=== PATIENT | male | born 2005 | race Two or more races ===

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

== ENCOUNTER 2024-06-13 18:32 | Inpatient (IN) | payer OTHER, SELFPAY ==
--- OUTSIDE RECORDS SUMMARY | 2024-06-13 18:37 | XMS_ITS | Continuity of Care Document ---
Author Organization [facility] Address [address] [place] [address]- Care Team Providers Care Bender Machine Name Role Phone Kathie Ernst DO Primary Care Physician [phone] Encounter [facility] Date(s): 04/25/21 - 05/25/21 [facility] [address] [place], [place] [address] Allergies, Adverse Reactions, Alerts No Known Medication Allergies Immunizations Given and Recorded Vaccine Date Status Refusal Reason influenza virus vaccine, inactivated 1 10/26/18 Gi chele influenza virus vaccine, inactivated 09/20/13 Give n Hepatitis A Pediatric Vaccine 05/06/17 Given Hepatitis A Pediatric Vaccine 06/27/15 Given Human Papillomavirus Vaccine 06/27/15 Given Human Papillomavirus Vaccine 03/20/14 Given Meningococcal Conjugate Vaccine 03/20/14 Given tetanus/diphtheria/pertussis, acel(Tdap) 03/20/14 Given Varicella Virus Vaccine 11/02/08 Given Varicella Virus Vaccine 03/20/04 Given influenza virus vaccine, live 11/02/08 Given influenza virus vaccine, live 11/01/07 Given Measles/Mumps/Rubella Virus Vaccine 11/01/07 Given Measles/Mumps/Rubella Virus Vaccine 06/19/04 Given Poliovirus Vaccine, Inactivated 11/01/07 Given Poliovirus Vaccine, Inactivated 09/19/04 Given Poliovirus Vaccine, Inactivated 03 Given Poliovirus Vaccine, Inactivated 03 Given diphtheria/tetanus/pertussis, acel(DTaP) 11/01/07 Given diphtheria/tetanus/pertussis, acel(DTaP) 09/19/04 Given diphtheria/tetanus/pertussis, acel(DTaP) 03 Given diphtheria/tetanus/pertussis, acel(DTaP) 03 Given diphtheria/tetanus/pertussis, acel(DTaP) 03 Given Haemophilus B Conj Vaccine (oldterm) 06/19/04 Give n Haemophilus B Conj Vaccine (oldterm) 03 Give n Haemophilus B Conj Vaccine (oldterm) 03 Give n Haemophilus B Conj Vaccine (oldterm) 03 Give n Hepatitis B Vaccine (old term) 03 Given Hepatitis B Vaccine (old term) 03 Given Hepatitis B Vaccine (old term) 03 Given pneumococcal 7-valent vaccine 03 Given pneumococcal 7-valent vaccine 03 Given pneumococcal 7-valent vaccine 03 Given 1Result Comment: [facility] [id number] Medications FLUoxetine 40 mg oral capsule 1 capsule = 40 mg, By Mouth, Daily, # 30 capsule, 0 Refills, Maintenance, 04/25/21 13:26:00 EDT, Capsule, [id number], Partial fill upon patient request if the prescription is for a schedule II opioid drug., 170, cm, 04/06/21 21:12:00 EDT, Raymond... Start Date: 04/25/21 Status: Ordered hydrOXYzine pamoate 50 mg oral capsule = 50 mg, By Mouth, 3 times a day, PRN Anxiety, take for mild anxiety, # 90 capsule, 0 Refills, Maintenance, 04/07/21 9:07:00 EDT, Capsule, [id number], Partial fill upon patient request if theprescription is for a schedule II opioid drug., 170... Start Date: 04/07/21 Stop Date: 05/07/21 Status: Ordered LORazepam 1 mg oral tablet 1 tablet = 1 mg, By Mouth, 3 times a day, PRN Anxiety, take for severe anxiety, # 42 tablet, 1 Refills, Maintenance, 04/07/21 9:07:00 EDT, Tablet, [id number], Partial fill upon patient request if the prescription is for a schedule II opioid drJason. Start Date: 04/07/21 Status: Ordered melatonin 5 mg oral tablet 1 tablet = 5 mg, By Mouth, Daily at bedtime, # 30 tablet, 1 Refills, Maintenance, 04/07/21 9:06:00 EDT, Tablet, [id number], Partial fill upon patient request if the prescription is for a schedule II opioid drug., 170, cm, 04/06/21 21:12:00 EDT... Start Date: 04/07/21 Status: Ordered traZODone 50 mg oral tablet 50 mg, 1, tablet, By Mouth, Daily at bedtime, # 30 tablet, Refills 0, Tot. Refills 0, Maintenance, 04/25/21 13:27:00 EDT, Route to Pharmacy Electronically, [facility] #[id number], Partial fill upon patient request if the prescription is for a schedule II... Start Date: 04/25/21 Status: Ordered ZyPREXA 10 mg oral tablet See Instructions, 1 tablet daily in AM; 1.5 tabs daily at bedtime, # 75 tablet, Refills 0, Tot. Refills 0, Maintenance, 04/25/21 13:26:00 EDT, Instructions Replace Required Details, Route to PharmacyElectronically, [facility] #[id number], Partial fill up... Start Date: 04/25/21 Status: Ordered Problem List Condition Effective Dates Status Health Status Inform ant Autism(Confirmed) Active Social History Social History Type Response Smoking Status Never smoker; Tobacc o user in household: No entered on: 08/10/18 Sex
--- OUTSIDE RECORDS SUMMARY | 2024-06-13 18:37 | XMS_ITS | Continuity of Care Document ---
Author Organization [facility] Address [address] [place] [address]- Care Team Providers Care Off Premise Service Representative Name Role Phone Kathie Ernst DO Primary Care Physician Encounter [facility] Date(s): 11/12/20 - 12/12/20 [facility] [address] [place], [place] [address] Allergies, Adverse Reactions, Alerts No [...] pneumococcal 7-valent vaccine 03 Given 1Result Comment: [facility] [id number] Medications melatonin 5 mg oral tablet 1 tablet = 5 mg, By Mouth, Daily at bedtime, # 30 tablet, 0 Refills, Maintenance, 10/16/20 18:04:00EST, Tablet, [facility]/pharmacy #[id number], Partial fill upon patient request, 172.5, cm, 10/16/20 16:28:00 EST, Height, 60.1, kg, 10/16/20 16:28:00 EST, Dry Weight Start Date: 10/16/20 Stop Date: 11/15/20 Status: Ordered olanzapine 5 mg oral tablet 10 mg, 2, tablet, By Mouth, Every 24 hours, Refills 0, Maintenance, 10/16/20 16:43:00 EST, Partial fill upon patient request Start Date: 10/16/20 Status: Ordered olanzapine 5 mg oral tablet 5 mg, 1, tablet, By Mouth, 2 times a day, take one pill in the morning and 2 pills at night (5mg @ 10AM and 10mg @ 9PM), # 90 tablet, Refills 0, Tot. Refills 0, Maintenance, 10/16/20 18:04:00 EST, Route to Pharmacy Electronically, [facility]/pharmacy #[id number],... Start Date: 10/16/20 Stop Date: 11/15/20 Status: Ordered traZODone 50 mg oral tablet 50 mg, 1, tablet, By Mouth, Daily at bedtime, PRN, # 30 tablet, Refills 0, Tot. Refills 0, Maintenance, Insomnia, 10/16/20 18:05:00 EST, Route to Pharmacy Electronically, [facility]/pharmacy #[id number], Partial fill upon patient request, 172.5, cm, 10/16/20 16:28... Start Date: 10/16/20 Stop Date: 11/15/20 Status: Ordered ZyPREXA 7.5 mg oral tablet 7.5 mg, 1, tablet, By Mouth, 4 times a day, PRN, Only when anxious, # 30 tablet, Refills 0, Tot. Refills 0, Maintenance, Anxiety, 10/16/20 18:04:00 EST, Route to Pharmacy Electronically, [facility]/pharmacy#[id number], Partial fill upon patient request, 172.5, cm... Start Date: 10/16/20 Stop Date: 11/15/20 Status: Ordered Problem List Condition Effective Dates Status Health Status Inform ant Autism(Confirmed) Active Social History Social History Type Response Smoking Status Never smoker; Tobacc o user in household: No entered on: 08/10/18 Sex
--- OUTSIDE RECORDS SUMMARY | 2024-06-13 18:37 | XMS_ITS | Continuity of Care Document ---
Author Organization [facility] Address [address] [place] [address]- Care Team Providers Care Fire Prevention Chief Name Role Phone Kathie Ernst DO Primary Care Physician Encounter [facility] [place] Date(s): 01/24/21 - 02/23/21 [facility] [address] [place] [address]- Attending Physician: Luis Crawley Admitting Physician: Luis Crawley Referring Physician: AdmtrLuis Allergies, Adverse Reactions, Alerts No Known Medication [...] pneumococcal 7-valent vaccine 03 Given 1Result Comment: [facility] [id number] Medications melatonin 5 mg oral tablet 1 tablet = 5 mg, By Mouth, Daily at bedtime, # 30 tablet, 0 Refills, Maintenance, 10/16/20 18:04:00EST, Tablet, [facility]/pharmacy #[id number], Partial fill upon patient request, 172.5, [...] 10/16/20 18:04:00 EST, Route to Pharmacy Electronically, [facility]/pharmacy #[id number],... Start Date: 10/16/20 Stop Date: 11/15/20 Status: Ordered traZODone 50 mg oral tablet 50 mg, 1, tablet, By Mouth, Daily at bedtime, PRN, # 30 tablet, Refills 0, Tot. Refills 0, Maintenance, Insomnia, 10/16/20 18:05:00 EST, Route to Pharmacy Electronically, [facility]/pharmacy #[id number], Partial fill upon patient request, 172.5, cm, 10/16/20 16:28... Start Date: 10/16/20 Stop Date: 11/15/20 Status: Ordered ZyPREXA 7.5 mg oral tablet 7.5 mg, 1, tablet, By Mouth, 4 times a day, PRN, Only when anxious, # 30 tablet, Refills 0, Tot. Refills 0, Maintenance, Anxiety, 10/16/20 18:04:00 EST, [id number] fill upon patient request, 172.5, cm... Start Date: 10/16/20 Stop Date: 11/15/20 Status: Ordered Problem List Condition Effective Dates Status Health Status Inform ant Autism(Confirmed) Active Social History Social History Type Response Smoking Status Never smoker; Tobacc o user in household: No entered on: 08/10/18 Sex
--- OUTSIDE RECORDS SUMMARY | 2024-06-13 18:38 | XMS_ITS | Continuity of Care Document ---
Author Organization [facility] Address [address] [place] [address]- Care Team Providers Care Office Machine Installer Name Role Phone Not on Staff, PCP Primary Care Physician Unavail able Encounter [facility] Date(s): 05/11/23 - 05/11/[address] [address]- Discharge Disposition: A-D/C Walkout Attending Physician: Not on Staff, Attending MD Admitting Physician: Not on Staff, Admitting MD Referring Physician: Not on Staff, Referring MD Allergies, Adverse Reactions, Alerts No Known Medication Allergies Immunizations Given and Recorded Vaccine Date Status Refusal Reason tetanus/diphtheria/pertussis, acel(Tdap) 05/09/23 Given tetanus/diphtheria/pertussis, acel(Tdap) 03/20/14 Given influenza virus vaccine, inactivated 1 10/26/18 Gi chele influenza virus vaccine, inactivated 09/20/13 Give n Hepatitis A Pediatric Vaccine 05/06/17 Given Hepatitis A Pediatric Vaccine 06/27/15 Given Human Papillomavirus Vaccine 06/27/15 Given Human Papillomavirus Vaccine 03/20/14 Given Meningococcal Conjugate Vaccine 03/20/14 Given Varicella Virus Vaccine 11/02/08 Given [...] 03 Given pneumococcal 7-valent vaccine 03 Given Not Given Vaccine Date Status Refusal Reason influenza virus vaccine, inactivated 12/04/22 Not Given Patient Refuses 1Result Comment: [facility] [id number] Medications olanzapine 20 mg oral tablet 1 tablet = 20 mg, By Mouth, Daily, # 30 tablet, 0 Refills, Maintenance, 12/10/22 9:01:00 EST, Tablet, [id number], Partial fill upon patient request if the prescription is for a schedule II opioid drug., 175, cm, 12/08/22 18:10:00 EST,... Start Date: 12/10/22 Status: Ordered Problem List Condition Confirmation Course Effective Dates Status H ealth Status Informant Anxiety Confirmed Active ADHD Confirmed Active Autism Confirmed Active Depression Confirmed Active Major depression with psychotic features Confirmed Active Schizophrenia Confirmed Active Vital Signs Most recent to oldest [Reference Range]: 1 Height 175 cm (05/11/23 1:48 PM) Weight 91.4 kg (05/11/23 1:48 PM) Oxygen Saturation [94-100 %] 98 % (05/11/23 1:48 PM) Pulse Rate [55-90 bpm] 65 bpm (05/11/23 1:48 PM) Body Mass Index [18.5-24.99 kg/m2] 29.84 kg/m2 *H* (05/11/23 1:48 PM) Blood Pressure [90-138/55-84 mm Hg] 112/ 78mm Hg (05/11/23 1:48 PM) Respiratory Rate [16-30 br/min] 18 br/mi n (05/11/23 1:48 PM) Temperature [96.8-100.4 DegF] 98.2 DegF (05/11/23 1:48 PM) Mode of Delivery (Oxygen) Room air (05/11/23 1:48 PM) Blood pressure sites Arm, left (05/11/23 1:48 PM) Temperature Route Oral (05/11/23 1:48 PM) Weight Obtained Via Standing scale (05/11/23 1:48 PM) Social History Social History Type Response Smoking Status Never smoker; Tobacc o user in household: No entered on: 08/10/18 Sex Patient Care team information Care Team Personnel Name: Jsoe Rafael Rodriges RN Position: [facility] RN Member Role: Primary Care Nurse Name: Latha Winston RN Position: [facility] RN Member Role: Primary Care Nurse Name: Cammy Villarreal RN Position: S RN Member Role: Primary Care Nurse Name: Cleopatra Lyles RN Position: [facility] RN Supv Member Role: Primary Care Nurse Name: Vannessa Fam RN Position: [facility] RN Member Role: Primary Care Nurse Name: Mague Hendrix RN Position: [facility] ED RN W/OE and Tasks Member Role: Primary Care Nurse Name: Not on Staff, PCP Position: [facility] Physician (General Medicine) Member Role: PCP Name: Leia Hunter RN Position: S RN Member Role: Primary Care Nurse Name: Jame Allen RN Position: [facility] RN Member Role: Primary Care Nurse Name: Kenzie Leary RN Position: [facility] RN Supv Member Role: Primary Care Nurse Name: Irais Velez RN Position: [facility] RN Member Role: Primary Care Nurse Care Team Related Persons Name: NATHANAEL AURA Address: home [address] [place] [address] Name: VANDANA HANKS Address: home [address] [place] [address]
--- OUTSIDE RECORDS SUMMARY | 2024-06-13 18:38 | XMS_ITS | Continuity of Care Document ---
Author Organization [facility] Address [address] [place] [address]- Care Team Providers Care Automotive Service Management Teacher Name Role Phone Nagi Bhatti DO Primary Care Physician [phone] Encounter [facility] Date(s): 01/07/24 - 02/20/24 [facility] [address] [place], [place] [phone] Attending Physician: Not on Staff, Attending MD Allergies, Adverse Reactions, Alerts No Known [...] pneumococcal 7-valent vaccine 03 Given 1Result Comment: [facility] 14291-779-63 Medications hydrOXYzine pamoate 50 mg oral capsule 1 capsule = 50 mg, By Mouth, 4 times a day, PRN for anxiety, # 40 capsule, 0 Refills, Maintenance, 11/23/23 0:08:00 EST, Capsule, Partial fill upon patient request if the prescription is for a schedule II opioid drug. Start Date: 11/23/23 Status: Ordered Melatonin 3 mg oral tablet 1 tablet = 3 mg, By Mouth, Daily at bedtime, PRN for insomnia, # 60 tablet, 0 Refills, Maintenance,11/23/23 0:08:00 EST, Tablet, Partial fill upon patient request if the prescription is for a schedule II opioid drug. Start Date: 11/23/23 Status: Ordered mirtazapine 15 mg oral tablet TAKE 1/2 TABLET BY MOUTH AT BEDTIME Start Date: 02/04/24 Status: Ordered naproxen 500 mg oral tablet 1 tablet = 500 mg, By Mouth, 2 times a day, PRN for pain, # 20 tablet, 0 Refills, Maintenance, 11/23/23 0:08:00 EST, Tablet, Partial fill upon patient request if the prescription is for a schedule IIopioid drug. Start Date: 11/23/23 Status: Ordered olanzapine 15 mg oral tablet TAKE 1 TABLET BY MOUTH EVERY NIGHT AT BEDTIME Start Date: 02/04/24 Status: Ordered traZODone 50 mg oral tablet 50 mg, 1, tablet, By Mouth, Daily at bedtime, PRN, # 14 tablet, Refills 1, Tot. Refills 1, Maintenance, Insomnia, 05/23/23 14:47:00 EDT, Route to Pharmacy Electronically, [facility], Partial fill upon patient request if the prescription... Start Date: 05/23/23 Stop Date: 06/20/23 Status: Ordered Problem List Condition Confirmation Course Effective Dates Status H ealth Status Informant Anxiety Confirmed Active ADHD Confirmed Active Autism Confirmed Active Depression 1 Confirmed Active Major depression with psychotic features Confirmed Active Schizophrenia Confirmed Active 1As per psych H&P on 12/03/22 - past diagnoses: ASD, ADHD, anxiety, MDD w/ psychotic features, unspecified psychotic disorder vs OCD Past Treatment Trials: Prozac, sertraline, risperidone, Zyprexa, Abilify Aristada, Invega Sustenna,Wellbutrin Past Hospitalizations in 2020 - 2021 [facility] APTU 07/23/22-08/07/22, 11/03/21- 11/07/21, 10/13/21-10/20/21; prior to that, MiraVista 10/07/21, APTU 03/2021 and 02/2021, Social History Social History Type Response Smoking Status Never smoker; Tobacc o user in household: No entered on: 08/10/18 Sex Male Patient Care team information Care Team Personnel Name: Jose Rafael Rodriges RN Position: S RN Member Role: Primary Care Nurse Name: Nagi Bhatti DO Position: S Resident Member Role: PCP Address: Address: [address] [place] [address] [place] [address]- Name: Cammy Villarreal RN Position: S RN Member Role: Primary Care Nurse Name: Cleopatra Lyles RN Position: S RN Member Role: Primary Care Nurse Name: Vannessa Fam RN Position: S RN Member Role: Primary Care Nurse Name: Leia Hunter RN Position: S RN Member Role: Primary Care Nurse Name: Jame Allen RN Position: S RN Member Role: Primary Care Nurse Name: Kenzie Leary RN Position: S RN Member Role: Primary Care Nurse Name: Jf Ayala RN Position: S RN Member Role: Primary Care Nurse Name: Irais Velez RN Position: S RN Member Role: Primary Care Nurse Care Team Related Persons Name: AURA HUFFMAN Address: [place] [address] Name: VANDANA HANKS Address: [place] [address] Name: STATES, NO ONE
--- OUTSIDE RECORDS SUMMARY | 2024-06-13 18:38 | XMS_ITS | Continuity of Care Document ---
Author Organization [facility] Address [address] [place] [address]- Care Team Providers Care Manager Customer Name Role Phone Kathie Ernst DO Primary Care Physician Encounter [facility] Date(s): 06/13/21 - 07/13/21 [facility] [address] [place], [place] [address] Allergies, Adverse Reactions, Alerts No Known Medication [...] 7-valent vaccine 03 Given 1Result Comment: [facility] 81925-526-90 Medications FLUoxetine 40 mg oral capsule 1 [...] 04/25/21 13:27:00 EDT, Route to Pharmacy Electronically, [facility]/pharmacy #[id number], Partial fill upon patient request if the prescription is for a schedule II... Start Date: 04/25/21 Status: Ordered ZyPREXA 10 mg oral tablet See Instructions, 1 tablet daily in AM; 1.5 tabs daily at bedtime, # 75 tablet, Refills 0, Tot. Refills 0, Maintenance, 04/25/21 13:26:00 EDT, Instructions Replace Required Details, Route to PharmacyElectronically, [facility]/pharmacy #[id number], Partial fill up... Start Date: 04/25/21 Status: Ordered Problem List Condition Effective Dates Status Health Status Inform ant Autism(Confirmed) Active Social History Social History Type Response Smoking Status Never smoker; Tobacc o user in household: No entered on: 08/10/18 Sex
--- OUTSIDE RECORDS SUMMARY | 2024-06-13 18:38 | XMS_ITS | Continuity of Care Document ---
Author Organization [facility] Address [address] [place] [address]- Care Team Providers Care Employment Advisor Name Role Phone Kathie Ernst DO Primary Care Physician Encounter [facility] Date(s): 03/24/21 - 04/23/21 [facility] [address] [place], [place] [address] Allergies, Adverse Reactions, Alerts No [...] pneumococcal 7-valent vaccine 03 Given 1Result Comment: [facility] 97629-372-25 Medications FLUoxetine 40 mg oral capsule 1 capsule = 40 mg, By Mouth, Daily, # 30 capsule, 0 Refills, Maintenance, 04/07/21 9:07:00 EDT, Capsule, [id number], Partial fill upon patient request if the prescription is for a schedule IIopioid drug., 170, cm, 04/06/21 21:12:00 EDT, Moises... Start Date: 04/07/21 Status: Ordered hydrOXYzine pamoate 50 mg oral [...] tablet, Refills 0, Tot. Refills 0, Maintenance, 04/07/21 9:06:00 EDT, Route to Pharmacy Electronically, [facility]/pharmacy #[id number], Partial fill upon patient request if the prescription is for a schedule II o... Start Date: 04/07/21 Status: Ordered ZyPREXA 10 mg oral tablet See Instructions, 1 tablet daily in AM; 1.5 tabs daily at bedtime, # 75 tablet, Refills 0, Tot. Refills 0, Maintenance, 04/07/21 9:06:00 EDT, Instructions Replace Required Details, Route to Pharmacy Electronically, [facility]/pharmacy #[id number], Partial fill upo... Start Date: 04/07/21 Status: Ordered Problem List Condition Effective Dates Status Health Status Inform ant Autism(Confirmed) Active Social History Social History Type Response Smoking Status Never smoker; Tobacc o user in household: No entered on: 08/10/18 Sex
--- OUTSIDE RECORDS SUMMARY | 2024-06-13 18:38 | XMS_ITS | Continuity of Care Document ---
Author Organization [facility] Address [address] [place] [address]- Care Team Providers Care Secondary School Registrar Name Role Phone Branch Maday ROBINS Primary Care Physician [facility]counter [facility] Date(s): 03/11/22 - 04/25/22 [facility] [address] [place] [id number] Attending Physician: Randall Lagunas MD Admitting Physician: Randall Lagunas MD Allergies, Adverse Reactions, Alerts No Known [...] 7-valent vaccine 03 Given 1Result Comment: [facility] 58130-646-45 Medications FLUoxetine 40 mg oral capsule 1 capsule = 40 mg, By Mouth, Daily, # 30 capsule, 0 Refills, Maintenance, 11/07/21 10:38:00 EST, Capsule, [id number], Partial fill upon patient request if the prescription is for a schedule II opioid drug., 175, cm, 11/07/21 8:02:00 EST, Heigh... Start Date: 11/07/21 Status: Ordered melatonin 5 mg oral tablet 1 tablet = 5 mg, By Mouth, Daily at bedtime, # 30 tablet, 1 Refills, Maintenance, 11/07/21 10:38:00EST, Tablet, [id number], Partial fill upon patient request if the prescription is for a schedule II opioid drug., 175, cm, 11/07/21 8:02:00 EST... Start Date: 11/07/21 Status: Ordered olanzapine 10 mg oral tablet 10 mg, 1, tablet, By Mouth, Daily, # 30 tablet, Refills 0, Tot. Refills 0, Maintenance, 11/07/21 10:39:00 EST, Route to Pharmacy Electronically, [facility]/pharmacy #[id number], Partial fill upon patient request if the prescription is for a schedule II opioid drug... Start Date: 11/07/21 Status: Ordered olanzapine 10 mg oral tablet 10 mg, 1, tablet, By Mouth, Daily, Refills 0, Maintenance, 11/06/21 16:24:00 EST, Partial fill uponpatient request if the prescription is for a schedule II opioid drug. Start Date: 11/06/21 Status: Ordered traZODone 50 mg oral tablet 50 mg, 1, tablet, By Mouth, Daily at bedtime, # 30 tablet, Refills 0, Tot. Refills 0, Maintenance, 11/07/21 10:39:00 EST, Route to Pharmacy Electronically, [facility]/pharmacy #[id number], Partial fill upon patient request if the prescription is for a schedule II... Start Date: 11/07/21 Status: Ordered Problem List Condition Effective Dates Status Health Status Inform ant Autism(Confirmed) Active Depression(Confirmed) Active Violent behavior(Confirmed) Active Schizophrenia(Confirmed) Active Social History Social History Type Response Smoking Status Never smoker; Tobacc o user in household: No entered on: 08/10/18 Sex
--- OUTSIDE RECORDS SUMMARY | 2024-06-13 18:38 | XMS_ITS | Continuity of Care Document ---
Author Organization [facility] Address [address] [place] [address]- Care Team Providers Care Supervisor Car Installations Name Role Phone Nagi Bhatti DO Primary Care Physician [place] [facility] Date(s): 11/26/23 - 12/26/23 [facility] [address] [place], [place] [address] Attending Physician: Luis Crawley Admitting Physician: Luis [...] pneumococcal 7-valent vaccine 03 Given 1Result Comment: [facility] 61306-850-80 Medications hydrOXYzine pamoate 50 mg oral capsule 1 capsule = 50 mg, By Mouth, 4 times a day, PRN for anxiety, # 40 capsule, 0 Refills, Maintenance, 11/23/23 0:08:00 EST, Capsule, Partial fill upon patient request if the prescription is for a schedule II opioid drug. Start Date: 11/23/23 Status: Ordered MELATONIN 3 MG TABS MELATONIN 3 MG TABS, 0 Refills, Maintenance, 11/23/23 0:08:00 EST Start Date: 11/23/23 Status: Ordered Melatonin 3 mg oral tablet 1 tablet = 3 mg, By Mouth, Daily at bedtime, PRN for insomnia, # 60 tablet, 0 Refills, Maintenance,11/23/23 0:08:00 EST, Tablet, Partial fill upon patient request if the prescription is for a schedule II opioid drug. Start Date: 11/23/23 Status: Ordered mirtazapine 7.5 mg oral tablet 1 tablet = 7.5 mg, By Mouth, Daily at bedtime, # 30 tablet, 0 Refills, Maintenance, 11/23/23 0:08:00 EST, Partial fill upon patient request if the prescription is for a schedule II opioid drug. Start Date: 11/23/23 Status: Ordered naproxen 500 mg oral tablet 1 tablet = 500 mg, By Mouth, 2 times a day, PRN for pain, # 20 tablet, 0 Refills, Maintenance, 11/23/23 0:08:00 EST, Tablet, Partial fill upon patient request if the prescription is for a schedule IIopioid drug. Start Date: 11/23/23 Status: Ordered olanzapine 10 mg oral tablet 10 mg, 1, tablet, By Mouth, Daily, # 30 tablet, Refills 0, Maintenance, 11/23/23 0:08:00 EST, Partial fill upon patient request if the prescription is for a schedule II opioid drug. Start Date: 11/23/23 Status: Ordered olanzapine 5 mg oral tablet 5 mg, 1, tablet, By Mouth, 2 times a day, # 28 tablet, Refills 1, Tot. Refills 1, Maintenance, 05/23/23 14:47:00 EDT, Route to Pharmacy Electronically, [facility], Partial fill upon patient request if the prescription is for a schedule I... Start Date: 05/23/23 Stop Date: 06/20/23 Status: Ordered traZODone 50 mg oral tablet 50 mg, 1, tablet, By Mouth, Daily at bedtime, PRN, # 14 tablet, Refills 1, Tot. Refills 1, Maintenance, Insomnia, 05/23/23 14:47:00 EDT, Route to Pharmacy Electronically, [facility], Partial fill upon patient [...] Sustenna,Wellbutrin Past Hospitalizations in 2020 - 2021 [facility] APTU 07/23/22-08/07/22, 11/03/21- 11/07/21, 10/13/21-10/20/21; prior to that, MiraVista 10/07/21, APTU 03/2021 and 02/2021, Social History Social History Type Response Smoking Status Never smoker; Tobacc o user in household: No entered on: 08/10/18 Sex Male Patient Care team information Care Team Personnel Name: Jose Rafael Rodriges RN Position: S RN Member Role: Primary Care Nurse Name: Latha Winston RN Position: S RN Member Role: Primary Care Nurse Name: Nagi Bhatti DO Position: [facility] Resident Member Role: PCP Address: Address: [address] [place] [id number] Name: Cammy Villarreal RN Position: S RN Member Role: Primary Care Nurse Name: Cleopatra Lyles RN Position: S RN Member Role: Primary Care Nurse Name: Vannessa Fam RN Position: S RN Member Role: Primary Care Nurse Name: Leia Hunter RN Position: [facility] RN Member Role: Primary Care Nurse Name: Jame Allen RN Position: [facility] RN Member Role: Primary Care Nurse Name: Kenzie Leary RN Position: S RN Member Role: Primary Care Nurse Name: Jf Ayala RN Position: [facility] RN Member Role: Primary Care Nurse Name: Irais Velez RN Position: S RN Member Role: Primary Care Nurse Care Team Related Persons Name: AURA HUFFMAN Address: [address] [place] [id number] Name: VANDANA HANKS Address: home [address] [place] [id number]
--- OUTSIDE RECORDS SUMMARY | 2024-06-13 18:38 | XMS_ITS | Continuity of Care Document ---
Author Organization [facility] Address [address] [place] [address]- Care Team Providers Care Technology Director Name Role Phone Not on Staff, PCP Primary Care Physician Unavail able Encounter [facility] Date(s): 10/10/21 - 11/23/21 [facility] [address] [place] [id number] Attending Physician: Not on Staff, Attending MD [...] 7-valent vaccine 03 Given 1Result Comment: [facility] 80828-464-98 Medications FLUoxetine 40 mg oral capsule 1 [...] 11/07/21 10:39:00 EST, [id number], Partial fill upon patient request [...] 11/07/21 10:39:00 EST, Route to Pharmacy Electronically, [facility]/pharmacy #[id number], Partial fill upon patient request if the prescription is for a schedule II... Start Date: 11/07/21 Status: Ordered Problem List Condition Effective Dates Status Health Status Inform ant Autism(Confirmed) Active Social History Social History Type Response Smoking Status Never smoker; Tobacc o user in household: No entered on: 08/10/18 Sex
--- OUTSIDE RECORDS SUMMARY | 2024-06-13 18:38 | XMS_ITS | Continuity of Care Document ---
Author Organization [facility] Address [address] [place] [address]- Care Team Providers Care Snack Bar Attendant Name Role Phone Branch Maday ROBINS Primary Care Physician Encounter [facility] Date(s): 02/26/22 - 03/28/22 [facility] [address] [place] [id number] Allergies, Adverse Reactions, Alerts No [...] pneumococcal 7-valent vaccine 03 Given 1Result Comment: [facility] 64928-997-45 Medications FLUoxetine 40 mg oral capsule 1 [...] 11/07/21 10:39:00 EST, Route to Pharmacy Electronically, [facility]/pharmacy #[id number], Partial fill upon patient request if the [...]
--- OUTSIDE RECORDS SUMMARY | 2024-06-13 18:38 | XMS_ITS | Continuity of Care Document ---
Author Organization [facility] Address [address] [place] [address]- Care Team Providers Care Machine Engineer Name Role Phone Kathie Ernst DO Primary Care Physician Encounter [facility] Date(s): 08/06/21 - 09/05/21 [facility] [address] [place] [id number] Attending Physician: Luis Crawley Admitting Physician: AdmLuis cash Referring Physician: AdmtrLuis Allergies, Adverse Reactions, Alerts [...] pneumococcal 7-valent vaccine 03 Given 1Result Comment: [facility] 45865-905-97 Medications FLUoxetine 40 mg oral capsule 1 capsule = 40 mg, By Mouth, Daily, # 30 capsule, 0 Refills, Maintenance, 04/25/21 13:26:00 EDT, [facility]apsule, [id number], Partial fill upon patient request if the prescription is for a schedule II opioid drug., 170, cm, 04/06/21 21:12:00 EDT, Heig... Start Date: 04/25/21 Status: Ordered hydrOXYzine pamoate [...] prescription is for a schedule II opioid dr... Start Date: 04/07/21 Status: Ordered melatonin 5 mg oral tablet 1 tablet = 5 mg, By Mouth, Daily at bedtime, # 30 tablet, 1 Refills, Maintenance, 04/07/21 9:06:00 EDT, Tablet, [facility]/pharmacy #[id number], Partial fill upon patient request if the prescription is for a schedule II opioid drug., 170, cm, 04/06/21 21:12:00 EDT... Start Date: 04/07/21 Status: Ordered traZODone 50 mg oral tablet 50 mg, 1, tablet, By Mouth, Daily at bedtime, # 30 tablet, Refills 0, Tot. Refills 0, Maintenance, 04/25/21 13:27:00 EDT, Route to Pharmacy Electronically, [facility]/pharmacy #[id number], Partial fill upon patient request if the prescription is for a schedule II... Start Date: 04/25/21 Status: Ordered ZyPREXA 10 mg oral tablet See Instructions, 1 tablet daily in AM; 1.5 tabs daily at bedtime, # 75 tablet, Refills 0, Tot. Refills 0, Maintenance, 04/25/21 13:26:00 EDT, Instructions Replace Required Details, Route to PharmacyElectronically, [facility]/pharmacy #[id number], Partial fill up... Start Date: 04/25/21 Status: Ordered Problem List Condition Effective Dates Status Health Status Inform ant Autism(Confirmed) Active Social History Social History Type Response Smoking Status Never smoker; Tobacc o user in household: No entered on: 08/10/18 Sex
--- OUTSIDE RECORDS SUMMARY | 2024-06-13 18:38 | XMS_ITS | Continuity of Care Document ---
Author Organization [facility] Address [address] [place] [address]- Care Team Providers Care Tubular Products Fabricator Name Role Phone Nagi Bhatti DO Primary Care Physician Encounter [facility] Date(s): 11/26/23 - 12/26/23 [facility] [address] [place], [place] [address] Attending Physician: Leia Armas MD Admitting Physician: Leia Armas MD Allergies, Adverse Reactions, Alerts No Known [...] pneumococcal 7-valent vaccine 03 Given 1Result Comment: [facility] 69731-190-13 Medications hydrOXYzine pamoate 50 mg oral capsule [...] 05/23/23 14:47:00 EDT, Route to Pharmacy Electronically, [facility], Partial fill upon patient request if the prescription is for a schedule I... Start Date: 05/23/23 Stop Date: 06/20/23 Status: Ordered traZODone 50 mg oral tablet 50 mg, 1, tablet, By Mouth, Daily at bedtime, PRN, # 14 tablet, Refills 1, Tot. Refills 1, Maintenance, Insomnia, 05/23/23 14:47:00 EDT, Route to Pharmacy Electronically, [facility], Partial fill upon patient [...] Sustenna,Wellbutrin Past Hospitalizations in 2020 - 2021 [facility] APTU 07/23/22-08/07/22, 11/03/21- 11/07/21, 10/13/21-10/20/21; prior to that, MiraVista 10/07/21, APTU 03/2021 and 02/2021, Social History Social History Type Response Smoking Status Never smoker; Tobacc o user in household: No entered on: 08/10/18 Sex Male Patient Care team information Care Team Personnel Name: Jose Rafael Rodriges RN Position: S RN Member Role: Primary Care Nurse Name: Latha Winston RN Position: [facility] RN Member Role: Primary Care Nurse Name: Nagi Bhatti DO Position: [facility] Resident Member Role: PCP Address: Address: [address] [place] [id number]- Name: Cammy Villarreal RN Position: [facility] RN Member Role: Primary Care Nurse Name: Cleopatra Lyles RN Position: [facility] RN Member Role: Primary Care Nurse Name: Vannessa Fam RN Position: [facility] RN Member Role: Primary Care Nurse Name: Leia Hunter RN Position: [facility] RN Member Role: Primary Care Nurse Name: Jame Allen RN Position: [facility] RN Member Role: Primary Care Nurse Name: Kenzie Leary RN Position: [facility] RN Member Role: Primary Care Nurse Name: Jf Ayala RN Position: [facility] RN Member Role: Primary Care Nurse Name: Irais Velez RN Position: [facility] RN Member Role: Primary Care Nurse Care Team Related Persons Name: NATHANAEL AURA Address: home [address] [place] [id number] Name: VANDANA HANKS Address: home [address] [place] [id number]
--- OUTSIDE RECORDS SUMMARY | 2024-06-13 18:38 | XMS_ITS | Continuity of Care Document ---
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 face. 2. ??Mild left periorbital soft tissue swelling. 3. ??Old healed left-sided maxillofacial fractures as described above. [1] [1]??CT Head/Brain W/O Contrast; Swati Gant MD 05/05/2024 23:58 EDT Patient Care team information Care Team Personnel Name: Nagi Bhatti DO Position: [facility] Resident Member Role: PCP Address: Address: [address] [place] [address] Name: Cammy Villarreal RN Position: S RN [...] RN Member Role: Primary Care Nurse Name: Leo Ayala RN Position: S RN Member Role: Primary Care Nurse Name: Irais Velez RN Position: S RN Member Role: Primary Care Nurse Care Team Related Persons Name: SHARDA HUFFMAN Address: home [address] [place] [address] Name: VANDANA HANKS Address: home [address] [place] [address] Name: STATES, NO ONE
--- OUTSIDE RECORDS SUMMARY | 2024-06-13 18:38 | XMS_ITS | Continuity of Care Document ---
Author Organization [facility] Address [address] [place] [address]- Care Team Providers Care Bookmobile Librarian Name Role Phone Kathie Ernst DO Primary Care Physician [place] [facility] [place]21 [facility] [address] [place], [place] [address] Allergies, Adverse Reactions, Alerts No Known [...] pneumococcal 7-valent vaccine 03 Given 1Result Comment: [facility] 45893-275-79 Medications melatonin 5 mg oral tablet 1 tablet = 5 mg, By Mouth, Daily at bedtime, # 30 tablet, 0 Refills, Maintenance, 10/16/20 18:04:00EST, Tablet, [facility]/pharmacy #[id number], Partial fill upon patient request, 172.5, [...] 10/16/20 18:04:00 EST, Route to Pharmacy Electronically, [facility]/pharmacy #[id number],... Start Date: 10/16/20 Stop Date: 11/15/20 Status: Ordered traZODone 50 mg oral tablet 50 mg, 1, tablet, By Mouth, Daily at bedtime, PRN, # 30 tablet, Refills 0, Tot. Refills 0, Maintenance, Insomnia, 10/16/20 18:05:00 EST, Route to Pharmacy Electronically, [facility]/pharmacy #[id number], Partial fill upon patient request, 172.5, cm, 10/16/20 16:28... Start Date: 10/16/20 Stop Date: 11/15/20 Status: Ordered ZyPREXA 7.5 mg oral tablet 7.5 mg, 1, tablet, By Mouth, 4 times a day, PRN, Only when anxious, # 30 tablet, Refills 0, Tot. Refills 0, Maintenance, Anxiety, 10/16/20 18:04:00 EST, Route to Pharmacy Electronically, [facility]/pharmacy#[id number], Partial fill upon patient request, 172.5, cm... Start Date: 10/16/20 Stop Date: 11/15/20 Status: Ordered Problem List Condition Effective Dates Status Health Status Inform ant Autism(Confirmed) Active Social History Social History Type Response Smoking Status Never smoker; Tobacc o user in household: No entered on: 08/10/18 Sex
--- OUTSIDE RECORDS SUMMARY | 2024-06-13 18:38 | XMS_ITS | Continuity of Care Document ---
Author Organization [facility] Address [address] [place] [address]- Care Team Providers Care Plumbing Service Technician Name Role Phone Branch Maday ROBINS Primary Care Physician Encounter [facility] Date(s): 02/16/22 - 04/15/22 [facility] [address] [place] [id number] Attending Physician: Maru Dorman MD Admitting Physician: Maru Dorman MD Allergies, Adverse Reactions, Alerts No Known [...] pneumococcal 7-valent vaccine 03 Given 1Result Comment: [facility] 95441-421-20 Medications FLUoxetine 40 mg oral capsule 1 capsule = 40 mg, By Mouth, Daily, # 30 capsule, 0 Refills, Maintenance, 11/07/21 10:38:00 EST, Capsule, [facility]/pharmacy #[id number], Partial fill upon patient request if the prescription is for a schedule II opioid drug., 175, cm, 11/07/21 8:02:00 EST, Heigh... Start Date: 11/07/21 Status: Ordered melatonin 5 mg oral tablet 1 tablet = 5 mg, By Mouth, Daily at bedtime, # 30 tablet, 1 Refills, Maintenance, 11/07/21 10:38:00EST, Tablet, [facility]/pharmacy #[id number], Partial fill upon patient request if the prescription is for a schedule II opioid drug., 175, cm, 11/07/21 8:02:00 EST... Start Date: 11/07/21 Status: Ordered olanzapine 10 mg oral tablet 10 mg, 1, tablet, By Mouth, Daily, # 30 tablet, Refills 0, Tot. Refills 0, Maintenance, 11/07/21 10:39:00 EST, Route to Pharmacy Electronically, [facility]/pharmacy #[id number], Partial fill upon patient request if [...] 11/07/21 10:39:00 EST, Route to Pharmacy Electronically, [facility]/pharmacy #[id number], Partial fill upon patient request if the [...]
--- OUTSIDE RECORDS SUMMARY | 2024-06-13 18:38 | XMS_ITS | Continuity of Care Document ---
Author Organization [facility] Address [address] [place] [address]- Care Team Providers Care Sheet Taker Name Role Phone Kathie Ernst DO Primary Care Physician En[place] [facility] [place] Date(s): 01/24/21 - 02/23/21 [facility] [address] [place], [place] [address] Allergies, Adverse Reactions, Alerts No [...] Comment: [facility] 48235-999-48 Medications melatonin 5 mg oral tablet 1 tablet = 5 mg, By Mouth, Daily at bedtime, # 30 tablet, 0 Refills, Maintenance, 10/16/20 18:04:00EST, Tablet, [facility]/pharmacy #[id number], Partial fill upon patient request, [...] 18:04:00 EST, Route to Pharmacy Electronically, [facility]/pharmacy #[id number],... Start Date: 10/16/20 Stop Date: 11/15/20 Status: Ordered traZODone 50 mg oral tablet 50 mg, 1, tablet, By Mouth, Daily at bedtime, PRN, # 30 tablet, Refills 0, Tot. Refills 0, Maintenance, Insomnia, 10/16/20 18:05:00 EST, Route to Pharmacy Electronically, [facility]/pharmacy #[id number], Partial fill upon patient request, 172.5, cm, 10/16/20 16:28... Start Date: 10/16/20 Stop Date: 11/15/20 Status: Ordered ZyPREXA 7.5 mg oral tablet 7.5 mg, 1, tablet, By Mouth, 4 times a day, PRN, Only when anxious, # 30 tablet, Refills 0, Tot. Refills 0, Maintenance, Anxiety, 10/16/20 18:04:00 EST, Route to Pharmacy Electronically, [facility]/pharmacy#[id number], Partial fill upon patient request, 172.5, cm... Start Date: 10/16/20 Stop Date: 11/15/20 Status: Ordered Problem List Condition Effective Dates Status Health Status Inform ant Autism(Confirmed) Active Social History Social History Type Response Smoking Status Never smoker; Tobacc o user in household: No entered on: 08/10/18 Sex
--- OUTSIDE RECORDS SUMMARY | 2024-06-13 18:38 | XMS_ITS | Continuity of Care Document ---
Author Organization [facility] ter Address [address] [place] [address]- Care Team Providers Care Addiction Medicine Physician Name Role Phone Kathie Ernst DO Primary Care Physician [phone] Encounter [facility] Date(s): 03/14/21 - 04/13/[address] [email or web address] Attending Physician: Domingo Lazcano MD Referring Physician: Domingo Lazcano MD Allergies, Adverse Reactions, Alerts No Known [...] pneumococcal 7-valent vaccine 03 Given 1Result Comment: [facility] 06460-614-09 Medications FLUoxetine 40 mg oral capsule 1 [...] 1 Refills, Maintenance, 04/07/21 9:06:00 EDT, Tablet, [facility]/pharmacy #[id number], Partial fill upon patient request if the prescription is for a schedule II opioid drug., 170, cm, 04/06/21 21:12:00 EDT... Start Date: 04/07/21 Status: Ordered traZODone 50 mg oral tablet 50 mg, 1, tablet, By Mouth, Daily at bedtime, # 30 tablet, Refills 0, Tot. Refills 0, Maintenance, 04/07/21 9:06:00 EDT, Route to Pharmacy Electronically, [facility]/pharmacy #[id number], Partial fill upon patient request if the prescription is for a schedule II o... Start Date: 04/07/21 Status: Ordered ZyPREXA 10 mg oral tablet See Instructions, 1 tablet daily in AM; 1.5 tabs daily at bedtime, # 75 tablet, Refills 0, Tot. Refills 0, Maintenance, 04/07/21 9:06:00 EDT, Instructions Replace Required Details, Route to Pharmacy Electronically, [facility]/pharmacy #[id number], Partial fill upo... Start Date: 04/07/21 Status: Ordered Problem List Condition Effective Dates Status Health Status Inform ant Autism(Confirmed) Active Social History Social History Type Response Smoking Status Never smoker; Tobacc o user in household: No entered on: 08/10/18 Sex
--- OUTSIDE RECORDS SUMMARY | 2024-06-13 18:38 | XMS_ITS | Continuity of Care Document ---
Author Organization [facility] ter Address [address] [place] [address]- Care Team Providers Care Camouflage Specialist Name Role Phone Nagi Bhatti DO Primary Care Physician [phone] Encounter [facility] [place] [facility] R [id number] Date(s): 02/26/23 - 02/27/[address] [address]- Discharge Disposition: A-D/C Walkout Attending Physician: Not [...] 12/04/22 Not Given Patient Refuses 1Result Comment: [facility] 53653-471-83 Medications olanzapine 20 mg oral tablet 1 tablet = 20 mg, By Mouth, Daily, # 30 tablet, 0 Refills, Maintenance, 12/10/22 9:01:00 EST, Tablet, [facility] #[id number], Partial fill upon patient request if the [...] oldest [Reference Range]: 1 Height 175 cm (02/26/23 10:04 PM) Weight 91 kg (02/26/23 10:04 PM) Oxygen Saturation [94-100 %] 99 % (02/26/23 10:04 PM) Pulse Rate [55-90 bpm] 96 bpm *H* (02/26/23 10:04 PM) Body Mass Index [18.5-24.99 kg/m2] 29.71 kg/m2 *H* (02/26/23 10:04 PM) Blood Pressure [90-138/55-84 mm Hg] 123/ 80mm Hg (02/26/23 10:04 PM) Respiratory Rate [16-30 br/min] 16 br/mi n (02/26/23 10:04 PM) Temperature [96.8-100.4 DegF] 98.8 DegF (02/26/23 10:04 PM) Mode of Delivery (Oxygen) Room air (02/26/23 10:04 PM) Blood pressure sites Arm, right (02/26/23 10:04 PM) Temperature Route Oral (02/26/23 10:04 PM) Dry Weight 91 kg (02/26/23 10:04 PM) Weight Obtained Via Standing scale (02/26/23 10:04 PM) Dry Weight Obtained Via Standing scale (02/26/23 10:04 PM) Height Percentile 39.83 % 1 (02/26/23 10:04 PM) Height ZScore -0.26 2 (02/26/23 10:04 PM) Weight Percentile Per Age 92.03 % 3 (02/26/23 10:04 PM) BMI Percentile 93.56 4 (02/26/23 10:04 PM) BMI ZScore 1.52 5 (02/26/23 10:04 PM) Weight ZScore 1.41 6 (02/26/23 10:04 PM) 1Result Comment: ^~:!Percentile Source -CDC/WHO 2Result Comment: ^~:!ZScore Source -CDC/WHO 3Result Comment: ^~:!Percentile Source -CDC/WHO 4Result Comment: ^~:!Percentile Source -CDC/WHO 5Result Comment: ^~:!ZScore Source -CDC/WHO 6Result Comment: ^~:!ZScore Source -CDC/WHO Social History Social History Type Response Smoking [...] S Resident Member Role: PCP Address: Address: [address] [place] [address] [place], [place] [address] Name: Bushra Delacruz RN Position: S RN Member Role: Primary Care Nurse Name: Cammy Villarreal RN Position: S RN Member Role: Primary Care Nurse Name: Cleopatra Lyles RN Position: [facility] RN Supv Member Role: Primary Care Nurse Name: Vannessa Fam RN Position: [facility] RN Member Role: Primary Care Nurse Name: Mague Hendrix RN Position: [facility] ED RN W/OE and Tasks Member Role: Primary Care Nurse Name: Leia Hunter RN Position: [facility] RN Member Role: Primary Care Nurse Name: Jame Allen RN Position: [facility] RN Member Role: Primary Care Nurse Name: Kenzie Leary RN Position: [facility] RN Supv Member Role: Primary Care Nurse Name: Karen Hopkins RN Position: [facility] RN Member Role: Primary Care Nurse Name: Irais Velez RN Position: [facility] RN Member Role: Primary Care Nurse Care Team Related Persons Name: AURA HUFFMAN Address: [address] [address] Name: VANDANA HANKS Address: [address] [address]
--- OUTSIDE RECORDS SUMMARY | 2024-06-13 18:38 | XMS_ITS | Continuity of Care Document ---
Author Organization [facility] Address [address] [place] [address]- Care Team Providers Care Cheesemaker Name Role Phone Kathie Ernst DO Primary Care Physician Encounter [facility] Date(s): 04/04/21 - 05/04/21 [facility] [address] [place], [place] [address] Allergies, Adverse Reactions, Alerts No [...] 7-valent vaccine 03 Given 1Result Comment: [facility] 00135-870-82 Medications FLUoxetine 40 mg oral capsule 1 [...] 04/25/21 13:27:00 EDT, Route to Pharmacy Electronically, [facility]/pharmacy #[id number], Partial fill upon patient request if the prescription is for a schedule II... Start Date: 04/25/21 Status: Ordered ZyPREXA 10 mg oral tablet See Instructions, 1 tablet daily in AM; 1.5 tabs daily at bedtime, # 75 tablet, Refills 0, Tot. Refills 0, Maintenance, 04/25/21 13:26:00 EDT, Instructions Replace Required Details, Route to PharmacyElectronically, [facility]/pharmacy #[id number], Partial fill up... Start Date: 04/25/21 Status: Ordered Problem List Condition Effective Dates Status Health Status Inform ant Autism(Confirmed) Active Social History Social History Type Response Smoking Status Never smoker; Tobacc o user in household: No entered on: 08/10/18 Sex
--- OUTSIDE RECORDS SUMMARY | 2024-06-13 18:38 | XMS_ITS | Continuity of Care Document ---
Author Organization [facility] ter Address [address] [place] [address]- Care Team Providers Care Charter Boat Captain Name Role Phone Nagi Bhatti DO Primary Care Physician [phone] [facility] [place]04[place]24 - 02/05/[address] [address]- Discharge Disposition: Transfer to [facility] Attending Physician: Karol Negron DO Admitting Physician: Karol Negron DO Referring Physician: Not on Staff, Referring MD [...] pneumococcal 7-valent vaccine 03 Given 1Result Comment: [facility] 83790-469-08 Medications hydrOXYzine pamoate 50 mg oral capsule [...] 05/23/23 14:47:00 EDT, Route to Pharmacy Electronically, [facility], Partial fill [...] Sustenna,Wellbutrin Past Hospitalizations in 2020 - 2021 [facility] 07/23/22-08/07/22, 11/03/21- 11/07/21, 10/13/21-10/20/21; prior to that, [facility] 10/07/21, APTU 03/2021 and 02/2021, Vital Signs Most recent to oldest [Reference Range]: 1 2 3 Oxygen Saturation [94-100 %] 97 % (02/04/24 11:18 PM) 95 % (02/04/24 5:39 PM) 98 % (02/04/24 12:49 PM) Pulse Rate [55-90 bpm] 82 bpm (02/04/24 11:18 PM) 86 bpm (02/04/24 5:39 PM) 70 bpm (02/04/24 12:49 PM) Blood Pressure [90-138/55-84 mm Hg] 112/64mm Hg (02/04/24 11:18 PM) 116/68mm Hg (02/04/24 5:39 PM) 128/67mm Hg (02/04/24 12:49 PM) Respiratory Rate [16-30 br/min] 16 br/min (02/04/24 11:18 PM) 18 br/min (02/04/24 5:39 PM) 18 br/min (02/04/24 12:49 PM) Temperature [96.8-100.4 DegF] 98.6 DegF (02/04/24 11:18 PM) 98.3 DegF (02/04/24 5:39 PM) 97.5 DegF (02/04/24 7:39 AM) Mode of Delivery (Oxygen) Room air (02/04/24 11:18 PM) Room air (02/04/24 5:39 PM) Room air (02/04/24 12:49 PM) Blood pressure sites Arm, right (02/04/24 11:18 PM) Arm, left (02/04/24 5:39 PM) Arm, left (02/04/24 12:49 PM) Temperature Route Oral (02/04/24 11:18 PM) Oral (02/04/24 5:39 PM) Oral (02/04/24 7:39 AM) Social History Social History Type Response Smoking Status Never smoker; Tobacc o user in household: No entered on: 08/10/18 Sex Male Note * Kiana Hernandez MD: PERFORM Event Display: Patient Education Leaflets Authored Date: Psychosis ?? [id number] Psychosis Psychosis is a serious symptom of certain mental health problems. It also can be caused by some physical disease, traumatic experiences, or drugs and toxins. Psychosis involves perceiving reality differently from those around you. The difference between reality and what you think is reality becomesblurred in your mind. There are different kinds of psychosis, depending on the cause: ??? Health problems such as infections, thyroid disorders, some cancers, sleep deprivation, low or high blood sugar levels, or dementia ??? Drug-induced from drugs such as marijuana, alcohol, methamphetamine, cocaine, LSD, or PCP ??? Bipolar disorder ??? Depression ??? Schizophrenia Symptoms The symptoms of psychosis may not all be the same for each person. But they usually involve: ??? Hallucinations. Seeing, hearing, feeling, or even tasting or smelling things that are not there. ??? Delusions.??Believing something that's not true, or false beliefs that are not part of a person's anglican or cultural background. There may also be disturbances in thinking, speech, and behavior. These can include: ??? Hearing voices that others don't hear ??? Seeing things that others don't see ??? Racing thoughts ??? Lack of energy ??? Feeling very fearful ??? Disorganized speech ??? Intentional or unintentional bodily harm to others ??? An unfounded sense of not trusting people around you (paranoia) ??? Trouble thinking or concentrating clearly ??? Depression, feeling suicidal ??? Insomnia ??? Withdrawalfrom those around you Treatment for psychosis depends on the cause. Medicine is often used, with or without psychotherapy. You may need to stay in the hospital. This is to protect you and to carefully monitor medicines. ?? Home care ??? Find a healthcare provider and therapist who meet your needs. Seek help when you feellike your symptoms are returning. ??? Make sure to take your medicine as directed even if you thinkyou don't need it. ??? Never stop your medicine or change the dose without talking with your provider. Never use another person's medicine. ??? If you have trouble paying for your prescription, let your providers know so they can help you find resources. ??? Talk with your family and friends about your feelings and thoughts. Ask them to help you recognize any behavior changes so you can get help right away., Medicines can be adjusted if needed. ??? Contact your provider if you feel like your medicine is not working or you are having bad side effects. Medicine changes may need to be made. ?? Follow-up care is critical It's important to manage your condition by staying in close and regular contact with your healthcare team. Always follow up with your counselor, therapist, or psychiatrist as advised. Don't skip taking your medicine or change it without talking with your healthcare team. Take it as advised even if you think you don't need it. Also: ??? Tell each of your healthcare providers about all of the prescription medicines, [id number] medicines, illegal drugs, vitamins, and supplements you take.??Certain supplements interact with medicines. This can result in dangerous side effects.??Ask your pharmacist when you have questions about drug interactions. Tell your provider if you drink alcohol. If you do, tell them how oftenand how much you drink. ??? Tell your healthcare provider about all your medical conditions and anyrecent illnesses, such as infections. ??? Follow-up with lab tests as advised by your healthcare provider. Lab work is very important and can tell your provider the blood level of certain medicines. They can see if your dose needs to be increased or decreased. ??? Keep all follow-up appointments with healthcare providers who are treating other medical conditions. Long-term conditions like diabetes or thyroid problems can affect your emotional well-being if they are not controlled. ?? Crisis care If you or the person is at immediate risk, call or text the National Suicide Lifeline at 988. Or call emergency services at 911. You will be connected to trained crisis counselors. An online chat option is also available. Lifeline is free and available 14/06. The Lifeline will work together with [facility] to make sure you get the care you need. Call 988 if you: ??? Have suicidal thoughts, a suicide plan, and the means to carry out the plan ??? Hear voices that are telling you to harm yourself or others ??? Have trouble breathing ??? Are very confused ??? Are very drowsy or have trouble awakening ??? Faint or lose??consciousness ??? Have arapid heart rate, very low heart rate, or a new irregular heart rate ??? Have a seizure ?? When to seek medical advice Call your healthcare provider right away if any of these occur: ??? Gradual or rapid return of psychotic symptoms ??? Feeling like you want to harm yourself or another ??? Feeling extremely depressed??? Feeling very anxious, agitated, or angry ??? Feeling out of control or being controlled by others ??? Feeling unable to take care of yourself ??? Seeing things or hearing voices that you know aren't real ??? Family members or friends are worried about your emotional or physical health and ask you to call your provider ??? Symptoms from other health conditions that get worse. Or new symptoms develop. ?? Last Reviewed Date: 2023 ?? [id number] [employer]. All rights reserved. This information is not intended as a substitute for professional medical care. Always follow your healthcare professional's instructions. ?? Patient Care team information Care Team Personnel Name: Jose Rafael Rodriges RN Position: S RN Member Role: Primary Care Nurse Name: Nagi Bhatti DO Position: S Resident Member Role: PCP Address: Address: [address] [place] [address] [place] [address]- Name: Cammy Villarreal RN Position: [facility] RN Member Role: Primary Care Nurse Name: Cleopatra Lyles RN Position: S RN Member Role: Primary Care Nurse Name: Vannessa Fam RN Position: S RN Member Role: Primary Care Nurse Name: Leia Hunter RN Position: S RN Member Role: Primary Care Nurse Name: Jame Allen RN Position: [facility] RN Member Role: Primary Care Nurse Name: Kenzie Leary RN Position: [facility] RN Member Role: Primary Care Nurse Name: Jf Ayala RN Position: [facility] RN Member Role: Primary Care Nurse Name: Irais Velez RN Position: [facility] RN Member Role: Primary Care Nurse Care Team Related Persons Name: AURA HUFFMAN Address: [address] [address] Name: VANDANA HANKS Address: [address] [address]
--- OUTSIDE RECORDS SUMMARY | 2024-06-13 18:38 | XMS_ITS | Continuity of Care Document ---
Author Organization [facility] Address [address] [place] [address]- Care Team Providers Care Furniture Sander Name Role Phone Not on Staff, PCP Primary Care Physician Unavail able Encounter [facility] Date(s): 11/26/21 - 12/26/21 [facility] [address] [place] [address]- Allergies, Adverse Reactions, Alerts No Known Medication [...] pneumococcal 7-valent vaccine 03 Given 1Result Comment: [facility][NOTE 3] 71145-851-73 Medications FLUoxetine 40 mg oral capsule 1 [...] to Pharmacy Electronically, [facility]/pharmacy #[id number], Partial fill upon patient request if the prescription is for a schedule II... Start Date: 11/07/21 Status: Ordered Problem List Condition Effective Dates Status Health Status Inform ant Autism(Confirmed) Active Social History Social History Type Response Smoking Status Never smoker; Tobacc o user in household: No entered on: 08/10/18 Sex
--- OUTSIDE RECORDS SUMMARY | 2024-06-13 18:38 | XMS_ITS | Continuity of Care Document ---
Author Organization [facility] Address [address] [place] [address]- Care Team Providers Care Mortgage Processor Name Role Phone Kathie Ernst DO Primary Care Physician Encounter [facility] Date(s): 01/24/21 - 02/23/21 [facility] [address], [place] [address] Allergies, Adverse Reactions, Alerts No Known [...] 03 Given 1Result Comment: [facility] 51557-626-75 Medications melatonin 5 mg oral tablet 1 tablet = 5 mg, By Mouth, Daily at bedtime, # 30 tablet, 0 Refills, Maintenance, 10/16/20 18:04:00EST, Tablet, [facility]/pharmacy #[id number], Partial fill upon [...] 10/16/20 18:04:00 EST, Route to Pharmacy Electronically, [facility]/pharmacy #[id number],... Start Date: 10/16/20 Stop Date: 11/15/20 Status: Ordered traZODone 50 mg oral tablet 50 mg, 1, tablet, By Mouth, Daily at bedtime, PRN, # 30 tablet, Refills 0, Tot. Refills 0, Maintenance, Insomnia, 10/16/20 18:05:00 EST, Route to Pharmacy Electronically, [facility]/pharmacy #[id number], Partial fill upon patient request, 172.5, cm, 10/16/20 16:28... Start Date: 10/16/20 Stop Date: 11/15/20 Status: Ordered ZyPREXA 7.5 mg oral tablet 7.5 mg, 1, tablet, By Mouth, 4 times a day, PRN, Only when anxious, # 30 tablet, Refills 0, Tot. Refills 0, Maintenance, Anxiety, 10/16/20 18:04:00 EST, Route to Pharmacy Electronically, [facility]/pharmacy#[id number], Partial fill upon patient request, 172.5, cm... Start Date: 10/16/20 Stop Date: 11/15/20 Status: Ordered Problem List Condition Effective Dates Status Health Status Inform ant Autism(Confirmed) Active Social History Social History Type Response Smoking Status Never smoker; Tobacc o user in household: No entered on: 08/10/18 Sex
--- OUTSIDE RECORDS SUMMARY | 2024-06-13 18:38 | XMS_ITS | Continuity of Care Document ---
Author Organization [facility] Address [address] [place] [address]- Care Team Providers Care Medical Service Technician Name Role Phone Kathie Ernst DO Primary Care Physician [phone] [facility] Date(s): 02/28/21 - 03/30/21 [facility] [address], [place] [address] Allergies, Adverse Reactions, Alerts No Known Medication [...] pneumococcal 7-valent vaccine 03 Given 1Result Comment: [facility] 48795-728-72 Medications FLUoxetine 20 mg oral capsule 20 mg, 1, capsule, By Mouth, Daily, # 30 capsule, Refills 0, Tot. Refills 0, Maintenance, 03/20/21 8:40:00 EDT, Route to Pharmacy Electronically, [facility]/pharmacy #[id number], Partial fill upon patient requestif the prescription is for a schedule II opioid italo... Start Date: 03/20/21 Stop Date: 04/19/21 Status: Ordered hydrOXYzine pamoate 50 mg oral capsule = 50 mg, By Mouth, 3 times a day, PRN Anxiety, # 90 capsule, 0 Refills, Maintenance, 03/20/21 8:43:00 EDT, Capsule, [facility]/pharmacy #[id number], Partial fill upon patient request if the prescription is for a schedule II opioid drug., 175, cm, 03/19/21 9:27:00... Start Date: 03/20/21 Stop Date: 04/19/21 Status: Ordered melatonin 5 mg oral tablet 1 tablet = 5 mg, By Mouth, Daily at bedtime, for 14 days, # 14 tablet, 1 Refills, Acute 04/17/21 8:41:00 EDT, 03/20/21 8:41:00 EDT, Tablet, [facility]/pharmacy #[id number], Partial fill upon patient request if the prescription is for a schedule II opioid drug., 17... Start Date: 03/20/21 Stop Date: 04/17/21 Status: Ordered traZODone 50 mg oral tablet 50 mg, 1, tablet, By Mouth, Daily at bedtime, PRN, # 30 tablet, Refills 0, Tot. Refills 0, Maintenance, Insomnia, 03/20/21 8:46:00 EDT, Route to Pharmacy Electronically, [facility]/pharmacy #[id number], Partial fill upon patient request if the prescription is for... Start Date: 03/20/21 Stop Date: 04/19/21 Status: Ordered ZyPREXA 7.5 mg oral tablet 7.5 mg, 1, tablet, By Mouth, 2 times a day, # 60 tablet, Refills 0, Tot. Refills 0, Maintenance, 03/20/21 8:42:00 EDT, Route to Pharmacy Electronically, [facility]/pharmacy #[id number], Partial fill upon patient request if the prescription is for a schedule II opi... Start Date: 03/20/21 Stop Date: 04/19/21 Status: Ordered Problem List Condition Effective Dates Status Health Status Inform ant Autism(Confirmed) Active Social History Social History Type Response Smoking Status Never smoker; Tobacc o user in household: No entered on: 08/10/18 Sex
--- OUTSIDE RECORDS SUMMARY | 2024-06-13 18:38 | XMS_ITS | Continuity of Care Document ---
Author Organization [facility] Address [address] [place] [address]- Care Team Providers Care Freight Flagman Name Role Phone Nagi Bhatti DO Primary Care Physician Encounter [facility] Date(s): 10/01/23 - 12/26/23 [facility] [address] [place] [address]- Attending Physician: Yves Grimm MD Admitting Physician: Yves Grimm MD Allergies, Adverse Reactions, Alerts No Known [...] pneumococcal 7-valent vaccine 03 Given 1Result Comment: [facility] 58370-127-43 Medications hydrOXYzine pamoate 50 mg oral capsule [...] 05/23/23 14:47:00 EDT, Route to Pharmacy Electronically, [facility], Partial fill upon patient request if the prescription is for a schedule I... Start Date: 05/23/23 Stop Date: 06/20/23 Status: Ordered traZODone 50 mg oral tablet 50 mg, 1, tablet, By Mouth, Daily at bedtime, PRN, # 14 tablet, Refills 1, Tot. Refills 1, Maintenance, Insomnia, 05/23/23 14:47:00 EDT, Route to Pharmacy Electronically, [facility], Partial fill upon patient [...] Sustenna,Wellbutrin Past Hospitalizations in 2020 - 2021 [facility] 07/23/22-08/07/22, 11/03/21- 11/07/21, 10/13/21-10/20/21; prior to [...] Care Nurse Name: Nagi Bhatti DO Position: [facility] Resident Member Role: PCP Address: Address: [address] [place] [id number] Name: Cammy Villarreal RN Position: S RN Member Role: Primary Care Nurse Name: Cleopatra Lyles RN Position: S RN Member Role: Primary Care Nurse Name: Vannessa Fam RN Position: S RN Member Role: Primary Care Nurse Name: Leia Hunter RN Position: S RN Member Role: Primary Care Nurse Name: Jame Allen RN Position: [facility] RN Member Role: Primary Care Nurse Name: Kenzie Leary RN Position: S RN Member Role: Primary Care Nurse Name: Jf Ayala RN Position: [facility] RN Member Role: Primary Care Nurse Name: Irais Velez RN Position: S RN Member Role: Primary Care Nurse Care Team Related Persons Name: AURA HUFFMAN Address: home [address] [place] [id number] Name: VANDANA HANKS Address: home [address] [place] [id number]
--- OUTSIDE RECORDS SUMMARY | 2024-06-13 18:38 | XMS_ITS | Continuity of Care Document ---
Author Organization [facility] Address [address] [place] [address]- Care Team Providers Care Chiller Operator Name Role Phone Branch Maday ROBINS Primary Care Physician Encounter [facility] Date(s): 04/24/22 - 05/24/22 [facility] [address] [place] [id number] Allergies, Adverse Reactions, Alerts No Known Medication [...] Comment: [facility] 09981-613-13 Medications FLUoxetine 40 mg oral capsule 1 [...] 11/07/21 10:39:00 EST, Route to Pharmacy Electronically, [facility]/pharmacy #[id number], Partial fill upon patient request if the [...]
--- OUTSIDE RECORDS SUMMARY | 2024-06-13 18:38 | XMS_ITS | Continuity of Care Document ---
Author Organization [facility] ter Address [address] [place] [address]- Care Team Providers Care Parts Consultant Name Role Phone Kathie Ernst DO Primary Care Physician [phone] Encounter [facility] Date(s): 02/07/22 - 02/10/[address] [address]- [facility] Attending Physician: Daiana Diallo MD Admitting Physician: Daiana Diallo MD Referring Physician: Not on Staff, Referring [...] 1Result Comment: [facility] 04271-235-30 Medications FLUoxetine 40 mg oral capsule 1 [...] 11/07/21 10:39:00 EST, Route to Pharmacy Electronically, [facility]/pharmacy #[id number], Partial fill upon patient [...] 11/07/21 10:39:00 EST, Route to Pharmacy Electronically, [facility]/pharmacy #[id number], Partial fill upon patient request if the prescription is for a schedule II... Start Date: 11/07/21 Status: Ordered Problem List Condition Effective Dates Status Health Status Inform ant Autism(Confirmed) Active Vital Signs Most recent to oldest [Reference Range]: 1 2 3 Oxygen Saturation [94-100 %] 96 % (02/10/22 10:41 AM) 96 % (02/10/22 7:59 AM) 99 % (02/10/22 3:56 AM) Pulse Rate [55-90 bpm] 70 bpm (02/10/22 10:41 AM) 69 bpm (02/10/22 7:59 AM) 59 bpm (02/10/22 3:56 AM) Blood Pressure [71-110/30-71 mm Hg] 96/48mm Hg (02/10/22 10:41 AM) 95/50mm Hg (02/10/22 7:59 AM) 104/73mm Hg (02/10/22 3:56 AM) Respiratory Rate [16-30 br/min] 16 br/min (02/10/22 10:41 AM) 14 br/min *L* (02/10/22 7:59 AM) 18 br/min (02/10/22 3:56 AM) Temperature [96.8-100.4 DegF] 98.1 DegF (02/10/22 10:41 AM) 97.9 DegF (02/10/22 7:59 AM) 98.6 DegF (02/10/22 3:56 AM) Mode of Delivery (Oxygen) Room air (02/10/22 10:41 AM) Room air (02/10/22 7:59 AM) Room air (02/10/22 3:56 AM) Blood pressure sites Arm, right (02/10/22 10:41 AM) Arm, right (02/10/22 7:59 AM) Arm, right (02/10/22 3:56 AM) Temperature Route Oral (02/10/22 10:41 AM) Oral (02/10/22 7:59 AM) Oral (02/10/22 3:56 AM) Social History Social History Type Response Smoking Status Never smoker; Tobacc o user in household: No entered on: 08/10/18 Sex
--- OUTSIDE RECORDS SUMMARY | 2024-06-13 18:38 | XMS_ITS | Continuity of Care Document ---
Author Organization [facility] Address [address] [place] [address]- Care Team Providers Care Hvac Commercial Salesperson Name Role Phone Branch Maday ROBINS Primary Care Physician Encounter [facility] Date(s): 01/26/22 - 02/28/22 [facility] [address] [place], [place] [address] Attending Physician: Jeannette Evans MD Admitting Physician: Jeannette Evans MD Allergies, Adverse Reactions, Alerts No Known [...] vaccine 03 Given 1Result Comment: [facility] 31946-307-84 Medications FLUoxetine 40 mg oral capsule 1 [...] 11/07/21 10:39:00 EST, Route to Pharmacy Electronically, [facility]/pharmacy #[id number], Partial fill upon patient request if the prescription is for a schedule II... Start Date: 11/07/21 Status: Ordered Problem List Condition Effective Dates Status Health Status Inform ant Autism(Confirmed) Active Social History Social History Type Response Smoking Status Never smoker; Tobacc o user in household: No entered on: 08/10/18 Sex
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
--- OUTSIDE RECORDS SUMMARY | 2024-06-13 18:38 | XMS_ITS | Continuity of Care Document ---
Author Organization [facility] Address [address] [place] [address]- Care Team Providers Care Steward/Stewardess Second Class Name Role Phone Kathie Ernst DO Primary Care Physician Encounter [facility] Date(s): 12/02/20 - 01/01/21 [facility] [address], [place] [address] Allergies, Adverse Reactions, Alerts No [...] pneumococcal 7-valent vaccine 03 Given 1Result Comment: [facility] 19834-216-75 Medications melatonin 5 mg oral tablet 1 tablet = 5 mg, By Mouth, Daily at bedtime, # 30 tablet, 0 Refills, Maintenance, 10/16/20 18:04:00EST, Tablet, [facility]/pharmacy #[id number], Partial fill upon patient request, 172.5, [...] 10/16/20 18:04:00 EST, Route to Pharmacy Electronically, [facility]/pharmacy #[id number],... Start Date: 10/16/20 Stop Date: 11/15/20 Status: Ordered traZODone 50 mg oral tablet 50 mg, 1, tablet, By Mouth, Daily at bedtime, PRN, # 30 tablet, Refills 0, Tot. Refills 0, Maintenance, Insomnia, 10/16/20 18:05:00 EST, Route to Pharmacy Electronically, [facility]/pharmacy #[id number], Partial fill upon patient request, 172.5, cm, 10/16/20 16:28... Start Date: 10/16/20 Stop Date: 11/15/20 Status: Ordered ZyPREXA 7.5 mg oral tablet 7.5 mg, 1, tablet, By Mouth, 4 times a day, PRN, Only when anxious, # 30 tablet, Refills 0, Tot. Refills 0, Maintenance, Anxiety, 10/16/20 18:04:00 EST, Route to Pharmacy Electronically, [facility]/pharmacy#[id number], Partial fill upon patient request, 172.5, cm... Start Date: 10/16/20 Stop Date: 11/15/20 Status: Ordered Problem List Condition Effective Dates Status Health Status Inform ant Autism(Confirmed) Active Social History Social History Type Response Smoking Status Never smoker; Tobacc o user in household: No entered on: 08/10/18 Sex
--- OUTSIDE RECORDS SUMMARY | 2024-06-13 18:38 | XMS_ITS | Continuity of Care Document ---
Author Organization [facility] ter Address [address] [place] [address]- Care Team Providers Care Barista Name Role Phone Not on Staff, PCP Primary Care Physician Unavail able Encounter [facility] Date(s): 07/12/22 - 07/12/[address] [address]- Discharge Disposition: A-D/C Walkout Attending Physician: Not [...] pneumococcal 7-valent vaccine 03 Given 1Result Comment: [facility] 76247-794-89 Medications Caplyta 42 mg oral capsule 1 capsule = 42 mg, By Mouth, Daily, with food, Maintenance, 07/12/22 18:44:00 EDT, Capsule Start Date: 07/12/22 Status: Ordered hydrOXYzine pamoate 50 mg oral capsule 1 capsule = 50 mg, By Mouth, 3 times a day, PRN for anxiety, Maintenance, 07/12/22 18:43:00 EDT, Capsule Start Date: 07/12/22 Status: Ordered Melatonin 3 mg oral tablet 1 tablet = 3 mg, By Mouth, Daily at bedtime, Maintenance, 07/12/22 18:43:00 EDT, Tablet Start Date: 07/12/22 Status: Ordered olanzapine 10 mg oral tablet 10 mg, 1, tablet, By Mouth, Daily, # 30 tablet, Refills 0, Tot. Refills 0, Maintenance, 11/07/21 10:39:00 EST, Route to Pharmacy Electronically, [facility]/pharmacy #[id number], Partial fill upon patient request if the prescription is for a schedule II opioid drug... Start Date: 11/07/21 Status: Ordered risperiDONE 1 mg oral tablet 1 mg, 1, tablet, By Mouth, Daily, Maintenance, 07/12/22 18:43:00 EDT Start Date: 07/12/22 Status: Ordered Problem List Condition Effective Dates Status Health Status Inform ant Autism(Confirmed) Active Depression(Confirmed) Active Violent behavior(Confirmed) Active Schizophrenia(Confirmed) Active Vital Signs Most recent to oldest [Reference Range]: 1 Height 175 cm (07/12/22 10:24 AM) Oxygen Saturation [94-100 %] 96 % (07/12/22 10:24 AM) Pulse Rate [55-90 bpm] 98 bpm *H* (07/12/22 10:24 AM) Blood Pressure [90-138/55-84 mm Hg] 101/ 64mm Hg (07/12/22 10:24 AM) Respiratory Rate [16-30 br/min] 18 br/mi n (07/12/22 10:24 AM) Temperature [96.8-100.4 DegF] 97.5 DegF (07/12/22 10:24 AM) Mode of Delivery (Oxygen) Room air (07/12/22 10:24 AM) Blood pressure sites Arm, right (07/12/22 10:24 AM) Temperature Route Oral (07/12/22 10:24 AM) Dry Weight 82 kg (07/12/22 10:24 AM) Dry Weight Obtained Via Patient/family s tated (07/12/22 10:24 AM) Social History Social History Type Response Smoking Status Never smoker; Tobacc o user in household: No entered on: 08/10/18 Sex
--- OUTSIDE RECORDS SUMMARY | 2024-06-13 18:38 | XMS_ITS | Continuity of Care Document ---
Author Organization [facility] Address [address] [place] [address]- Care Team Providers Care Vice President Global Digital Marketing Name Role Phone Kathie Ernst DO Primary Care Physician [phone] Encounter [facility] Date(s): 04/07/21 - 05/07/21 [facility] [address] [place], [place] [address] Allergies, Adverse Reactions, Alerts No [...] pneumococcal 7-valent vaccine 03 Given 1Result Comment: [facility] 18883-800-62 Medications FLUoxetine 40 mg oral capsule 1 [...] 04/25/21 13:27:00 EDT, Route to Pharmacy Electronically, [facility]/pharmacy #[id number], Partial fill upon patient request if the prescription is for a schedule II... Start Date: 04/25/21 Status: Ordered ZyPREXA 10 mg oral tablet See Instructions, 1 tablet daily in AM; 1.5 tabs daily at bedtime, # 75 tablet, Refills 0, Tot. Refills 0, Maintenance, 04/25/21 13:26:00 EDT, Instructions Replace Required Details, Route to PharmacyElectronically, [facility]/pharmacy #[id number], Partial fill up... Start Date: 04/25/21 Status: Ordered Problem List Condition Effective Dates Status Health Status Inform ant Autism(Confirmed) Active Social History Social History Type Response Smoking Status Never smoker; Tobacc o user in household: No entered on: 08/10/18 Sex
--- OUTSIDE RECORDS SUMMARY | 2024-06-13 18:38 | XMS_ITS | Continuity of Care Document ---
Author Organization [facility] Address [address] [place] [address] D[address] [place] [address]- Care Team Providers Care Wet Wheeler Name Role Phone Nagi Bhatti DO Primary Care Physician [place] [facility] [place] 02/16[place]23 - 03/18/23 [facility] [address] [place] [address] Drive [address] [place], [place] [address] Allergies, Adverse Reactions, Alerts No Known [...] 12/04/22 Not Given Patient Refuses 1Result Comment: [facility] 17487-740-58 Medications olanzapine 20 mg oral tablet 1 tablet = 20 mg, By Mouth, Daily, # 30 tablet, 0 Refills, Maintenance, 12/10/22 9:01:00 EST, Tablet, [id number], Partial fill upon patient request if the prescription is for a schedule II opioid drug., 175, cm, 12/08/22 18:10:00 EST,... Start Date: 12/10/22 Status: Ordered Problem List Condition Confirmation Course Effective Dates Status H ealth Status Informant Anxiety Confirmed Active ADHD Confirmed Active Autism Confirmed Active Depression Confirmed Active Major depression with psychotic features Confirmed Active Schizophrenia Confirmed Active Social History Social History Type Response Smoking Status Never smoker; Tobacc o user in household: No entered on: 08/10/18 Sex Patient Care team information Care Team Personnel Name: Jose Rafael Rodriges RN Position: [facility] RN Member Role: Primary Care Nurse Name: Latha Winston RN Position: [facility] RN Member Role: Primary Care Nurse Name: Nagi Bhatti DO Position: [facility] Resident Member Role: PCP Address: Address: [address] [place] [address] [place] [address]- Name: Bushra eDlacruz RN Position: [facility] RN Member Role: Primary Care Nurse Name: Cammy Villarreal RN Position: [facility] RN Member Role: Primary Care Nurse Name: Cleopatra Lyles RN Position: [facility] RN Supv Member Role: Primary Care Nurse Name: Vannessa Fam RN Position: [facility] RN Member Role: Primary Care Nurse Name: Mague Hendrix RN Position: [facility] ED RN W/OE and Tasks Member Role: Primary Care Nurse Name: Leia Hunter RN Position: [facility] RN Member Role: Primary Care Nurse Name: Jame Allen RN Position: [facility] RN Member Role: Primary Care Nurse Name: Kenzie Leary RN Position: [facility] RN Supv Member Role: Primary Care Nurse Name: Irais Velez RN Position: [facility] RN Member Role: Primary Care Nurse Care Team Related Persons Name: AURA HUFFMAN Address: [place] [address] Name: AVNDANA HANKS Address: [place] [address]
--- OUTSIDE RECORDS SUMMARY | 2024-06-13 18:38 | XMS_ITS | Continuity of Care Document ---
Author Organization [facility] ter Address [address] [place] [address]- Care Team Providers Care Spiritual Care Coordinator Name Role Phone Branch Maday ROBINS Primary Care Physician Encounter [facility] Date(s): 12/02/22 - 12/03/[address] [address]- Encounter Diagnosis Psychosis(Final) - 12/03/22 Autism spectrum disorder(Final) - 12/03/22 Ingestion of toxic substance(Final) - 12/03/22 Discharge Disposition: Transfer to [facility] Facility Attending Physician: Bert Casillas MD Admitting Physician: Bert Casillas MD Referring Physician: Not on Staff, Referring [...] pneumococcal 7-valent vaccine 03 Given 1Result Comment: [facility] 87209-892-07 Medications Caplyta 42 mg oral capsule 1 capsule = 42 mg, By Mouth, Daily, with food, Maintenance, 07/12/22 18:44:00 EDT, Capsule Start Date: 07/12/22 Status: Ordered gabapentin 100 mg oral capsule 100 mg, 1, capsule, By Mouth, 3 times a day, # 90 capsule, Refills 0, Tot. Refills 0, Maintenance, 08/07/22 13:24:00 EDT, Route to Pharmacy Electronically, [facility]/pharmacy #[id number], Partial fill upon patient request if the prescription is for a schedule II... Start Date: 08/07/22 Status: Ordered hydrOXYzine pamoate 50 mg oral capsule 1 capsule = 50 mg, By Mouth, Daily, PRN Anxiety, Nausea, itching, # 30 capsule, 0 Refills, Maintenance, 08/07/22 13:24:00 EDT, Capsule, [id number], Partial fill upon patient request if the prescription is for a schedule II opioid drug., 175, c... Start Date: 08/07/22 Status: Ordered hydrOXYzine pamoate 50 mg oral [...] 11/07/21 10:39:00 EST, Route to Pharmacy Electronically, [facility]/pharmacy #[id number], Partial fill upon patient request if the prescription is for a schedule II opioid drug... Start Date: 11/07/21 Status: Ordered olanzapine 15 mg oral tablet 1 tablet = 15 mg, By Mouth, Daily, # 30 tablet, 0 Refills, Maintenance, 08/07/22 13:24:00 EDT, Tablet, [id number], Partial fill upon patient request if the prescription is for a schedule II opioid drug., 175, cm, 08/07/22 8:49:00 EDT, Height,... Start Date: 08/07/22 Status: Ordered olanzapine 5 mg oral tablet 5 mg, 1, tablet, By Mouth, Daily, PRN, paranoia, # 30 tablet, Refills 0, Tot. Refills 0, Maintenance, Agitation, 08/07/22 13:24:00 EDT, Route to Pharmacy Electronically, [facility]/pharmacy #[id number], Partial fill upon patient request if the prescription is for... Start Date: 08/07/22 Status: Ordered PROzac 20 mg oral capsule 60 mg, 3, capsule, By Mouth, Daily, # 90 capsule, Refills 0, Tot. Refills 0, Maintenance, 08/07/22 13:24:00 EDT, Route to Pharmacy Electronically, [facility]/pharmacy #[id number], Partial fill upon patient request if the prescription is for a schedule II opioid dr... Start Date: 08/07/22 Status: Ordered risperiDONE 1 mg oral tablet 1 mg, 1, tablet, By Mouth, Daily, Maintenance, 07/12/22 18:43:00 EDT Start Date: 07/12/22 Status: Ordered traZODone 50 mg oral tablet 50 mg, 1, tablet, By Mouth, Daily at bedtime, PRN, # 30 tablet, Refills 0, Tot. Refills 0, Maintenance, Insomnia, 08/07/22 13:24:00 EDT, Route to Pharmacy Electronically, [facility]/pharmacy #[id number], Partial fill upon patient request if the prescription is for... Start Date: 08/07/22 Status: Ordered Problem List Condition Confirmation Course Effective Dates Status Health St atus Informant Autism Confirmed Active Depression Confirmed Active Violent behavior Confirmed Active Schizophrenia Confirmed Active Vital Signs Most recent to oldest [Reference Range]: 1 2 3 Oxygen Saturation [94-100 %] 100 % (12/03/22 3:22 PM) 100 % (12/03/22 6:31 AM) 97 % (12/02/22 11:01 PM) Pulse Rate [55-90 bpm] 99 bpm *H* (12/03/22 3:22 PM) 97 bpm *H* (12/03/22 6:31 AM) 72 bpm (12/02/22 11:01 PM) Blood Pressure [90-138/55-84 mm Hg] 110/62mm Hg (12/03/22 3:22 PM) 101/55mm Hg (12/03/22 6:31 AM) 125/78mm Hg (12/02/22 11:01 PM) Respiratory Rate [16-30 br/min] 16 br/min (12/03/22 3:22 PM) 17 br/min (12/03/22 6:31 AM) 16 br/min (12/02/22 11:01 PM) Temperature [96.8-100.4 DegF] 97.9 DegF (12/03/22 3:22 PM) 98.0 DegF (12/03/22 6:31 AM) 98.3 DegF (12/02/22 11:01 PM) Mode of Delivery (Oxygen) Room air (12/03/22 3:22 PM) Room air (12/03/22 6:31 AM) Room air (12/02/22 11:01 PM) Blood pressure sites Arm, right (12/03/22 3:22 PM) Arm, right (12/03/22 6:31 AM) Arm, right (12/02/22 11:01 PM) Temperature Route Oral (12/03/22 3:22 PM) Oral (12/03/22 6:31 AM) Oral (12/02/22 11:01 PM) Social History Social History Type Response Smoking Status Never (less than 100 in lifetime) entered on: 07/23/22 Sex Patient Care team information Care Team Personnel Name: Maday Noble MD Position: [facility] Primary Care Physician Member Role: PCP Address: Address: [address] [place] [address], [facility] [place] [address]- Name: Jose Rafael Rodriges RN Position: [facility] RN Member Role: Primary Care Nurse Name: Latha Winston RN Position: [facility] RN Member Role: Primary Care Nurse Name: Bushra Delacruz RN Position: [facility] RN Member Role: Primary Care Nurse Name: Cammy Villarreal RN Position: [facility] RN Member Role: Primary Care Nurse Name: Cleopatra Lyles RN Position: [facility] RN Supv Member Role: Primary Care Nurse Name: Vannessa Fam RN Position: [facility] RN Member Role: Primary Care Nurse Name: Mague Hendrix RN Position: [facility] ED RN W/OE and Tasks Member Role: Primary Care Nurse Name: Leia Hunter RN Position: [facility] RN Member Role: Primary Care Nurse Name: Jame Allen RN Position: [facility] RN Member Role: Primary Care Nurse Name: Kenzie Leary RN Position: [facility] RN Supv Member Role: Primary Care Nurse Name: Florinda Kennedy RN Position: [facility] RN Member Role: Primary Care Nurse Name: Karen Hopkins RN Position: [facility] RN Member Role: Primary Care Nurse Name: Leo Ayala RN Position: [facility] RN Member Role: Primary Care Nurse Name: Irais Velez RN Position: [facility] RN Member Role: Primary Care Nurse [facility] Attending Position: [facility] ED Attendings Patient Name: Emely Cardenas Position: [facility] ED TA [facility] Member Role: Site Safety Manager Name: Antonio Saldaña RN Position: [facility] ED RN W/OE and Tasks Member Role: Patient Care Provider Name: Bert Casillas MD Position: [facility] ED Medicine MD Member Role: Admitting Physician Address: Address: [address] [place] [address] - [address] [place] [address]- [place] Care Team Related Persons Name: AURA HUFFMAN Address: home [address] [place] [address] Name: VANDANA HANKS Address: home [address] [place] [address]
--- OUTSIDE RECORDS SUMMARY | 2024-06-13 18:39 | XMS_ITS | Continuity of Care Document ---
Author Organization [facility] Address [address] [place] [address]- Care Team Providers Care Oracle Wms Consultant Name Role Phone Kathie Ernst DO Primary Care Physician [facility]counter [facility] Date(s): 07/25/21 - 09/05/21 [facility] [address] [place] [id number] Attending Physician: Not on Staff, Attending MD [...] pneumococcal 7-valent vaccine 03 Given 1Result Comment: [facility] [id number] Medications FLUoxetine 40 mg oral capsule 1 capsule = 40 mg, By Mouth, Daily, # 30 capsule, 0 Refills, Maintenance, 04/25/21 13:26:00 EDT, Capsule, [id number], Partial fill upon patient request if the prescription is for a schedule II opioid drug., 170, cm, 04/06/21 21:12:00 EDT, Josiahig... Start Date: 04/25/21 Status: Ordered hydrOXYzine pamoate [...] prescription is for a schedule II opioid dr.Jason Start Date: 04/07/21 Status: Ordered melatonin 5 [...] 04/25/21 13:27:00 EDT, Route to Pharmacy Electronically, [facility]/pharmacy #[id number], Partial fill upon patient request if the prescription is for a schedule II... Start Date: 04/25/21 Status: Ordered ZyPREXA 10 mg oral tablet See Instructions, 1 tablet daily in AM; 1.5 tabs daily at bedtime, # 75 tablet, Refills 0, Tot. Refills 0, Maintenance, 04/25/21 13:26:00 EDT, Instructions Replace Required Details, Route to PharmacyElectronically, [facility]/pharmacy #[id number], Partial fill up... Start Date: 04/25/21 Status: Ordered Problem List Condition Effective Dates Status Health Status Inform ant Autism(Confirmed) Active Social History Social History Type Response Smoking Status Never smoker; Tobacc o user in household: No entered on: 08/10/18 Sex
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
--- OUTSIDE RECORDS SUMMARY | 2024-06-13 18:39 | XMS_ITS | Continuity of Care Document ---
Author Organization [facility] ter Address [address] [place] [address]- Care Team Providers Care Order Processing Clerk Name Role Phone Kathie Ernst DO Primary Care Physician [phone] Encounter [facility] Date(s): 06/12/21 - 06/13/[address] [address]- Discharge Disposition: A-D/C Walkout Attending Physician: Not [...] pneumococcal 7-valent vaccine 03 Given 1Result Comment: [facility] [id number] Medications FLUoxetine 40 mg oral capsule 1 [...]
--- OUTSIDE RECORDS SUMMARY | 2024-06-13 18:39 | XMS_ITS | Continuity of Care Document ---
Author Organization [facility] Address [address] [place] [address]- Care Team Providers Care Long Distance Operator Name Role Phone Kathie Ernst DO Primary Care Physician Encounter [facility] Date(s): 02/04/21 - 03/06/21 [facility] [address] [place], [place] [address] Allergies, Adverse Reactions, Alerts No Known [...] 03 Given 1Result Comment: [facility] [id number] Medications melatonin 5 mg oral tablet 1 tablet = 5 mg, By Mouth, Daily at bedtime, # 30 tablet, 0 Refills, Maintenance, 10/16/20 18:04:00EST, Tablet, [facility]/pharmacy #[id number], Partial fill upon [...] 10/16/20 18:04:00 EST, Route to Pharmacy Electronically, [facility]/pharmacy #[id number],... Start Date: 10/16/20 Stop Date: 11/15/20 Status: Ordered traZODone 50 mg oral tablet 50 mg, 1, tablet, By Mouth, Daily at bedtime, PRN, # 30 tablet, Refills 0, Tot. Refills 0, Maintenance, Insomnia, 10/16/20 18:05:00 EST, Route to Pharmacy Electronically, [facility]/pharmacy #[id number], Partial fill upon patient request, 172.5, cm, 10/16/20 16:28... Start Date: 10/16/20 Stop Date: 11/15/20 Status: Ordered ZyPREXA 7.5 mg oral tablet 7.5 mg, 1, tablet, By Mouth, 4 times a day, PRN, Only when anxious, # 30 tablet, Refills 0, Tot. Refills 0, Maintenance, Anxiety, 10/16/20 18:04:00 EST, Route to Pharmacy Electronically, [facility]/pharmacy#[id number], Partial fill upon patient request, 172.5, cm... Start Date: 10/16/20 Stop Date: 11/15/20 Status: Ordered Problem List Condition Effective Dates Status Health Status Inform ant Autism(Confirmed) Active Social History Social History Type Response Smoking Status Never smoker; Tobacc o user in household: No entered on: 08/10/18 Sex
--- OUTSIDE RECORDS SUMMARY | 2024-06-13 18:39 | XMS_ITS | Continuity of Care Document ---
Author Organization [facility] Address [address] [place] [address]- Care Team Providers Care Rock Crushing Machine Operator Name Role Phone Kathie Ernst DO Primary Care Physician [phone] Encounter [facility] [place] Date(s): 06/16/21 - 07/16/21 [facility] [address] [place], [place] [address] Allergies, Adverse Reactions, Alerts No Known [...] Given 1Result Comment: [facility] 74424-455-11 Medications FLUoxetine 40 mg oral capsule 1 [...] 04/25/21 13:27:00 EDT, Route to Pharmacy Electronically, [facility]/pharmacy #[id number], Partial fill upon patient request if the prescription is for a schedule II... Start Date: 04/25/21 Status: Ordered ZyPREXA 10 mg oral tablet See Instructions, 1 tablet daily in AM; 1.5 tabs daily at bedtime, # 75 tablet, Refills 0, Tot. Refills 0, Maintenance, 04/25/21 13:26:00 EDT, Instructions Replace Required Details, Route to PharmacyElectronically, [facility]/pharmacy #[id number], Partial fill up... Start Date: 04/25/21 Status: Ordered Problem List Condition Effective Dates Status Health Status Inform ant Autism(Confirmed) Active Social History Social History Type Response Smoking Status Never smoker; Tobacc o user in household: No entered on: 08/10/18 Sex
--- OUTSIDE RECORDS SUMMARY | 2024-06-13 18:39 | XMS_ITS | Continuity of Care Document ---
Author Organization [facility] Address [address] [place] [address]- Care Team Providers Care Vegetable Ii Farmworker Name Role Phone Kathie Ernst DO Primary Care Physician [place] [facility] [place] 01/24/21 [facility] [address] [place], [place] [address] Allergies, Adverse Reactions, Alerts No [...] pneumococcal 7-valent vaccine 03 Given 1Result Comment: [facility] 63340-819-08 Medications melatonin 5 mg oral tablet 1 tablet = 5 mg, By Mouth, Daily at bedtime, # 30 tablet, 0 Refills, Maintenance, 10/16/20 18:04:00EST, Tablet, [facility]/pharmacy #[id number], Partial fill upon patient request, 172.5, [...] 10/16/20 18:04:00 EST, Route to Pharmacy Electronically, [facility]/pharmacy #[id number],... Start Date: 10/16/20 Stop Date: 11/15/20 Status: Ordered traZODone 50 mg oral tablet 50 mg, 1, tablet, By Mouth, Daily at bedtime, PRN, # 30 tablet, Refills 0, Tot. Refills 0, Maintenance, Insomnia, 10/16/20 18:05:00 EST, Route to Pharmacy Electronically, [facility]/pharmacy #[id number], Partial fill upon patient request, 172.5, cm, 10/16/20 16:28... Start Date: 10/16/20 Stop Date: 11/15/20 Status: Ordered ZyPREXA 7.5 mg oral tablet 7.5 mg, 1, tablet, By Mouth, 4 times a day, PRN, Only when anxious, # 30 tablet, Refills 0, Tot. Refills 0, Maintenance, Anxiety, 10/16/20 18:04:00 EST, Route to Pharmacy Electronically, [facility]/pharmacy#[id number], Partial fill upon patient request, 172.5, cm... Start Date: 10/16/20 Stop Date: 11/15/20 Status: Ordered Problem List Condition Effective Dates Status Health Status Inform ant Autism(Confirmed) Active Social History Social History Type Response Smoking Status Never smoker; Tobacc o user in household: No entered on: 08/10/18 Sex
--- OUTSIDE RECORDS SUMMARY | 2024-06-13 18:39 | XMS_ITS | Continuity of Care Document ---
Author Organization [facility] Address [address] [place] [address]- Care Team Providers Care Economic Development Director Name Role Phone Kathie Ernst DO Primary Care Physician Encounter [facility] [place] Date(s): 05/05/21 - 06/04/21 [facility] [address] [place], [place] [address] Allergies, Adverse Reactions, Alerts No [...] 7-valent vaccine 03 Given 1Result Comment: [facility]NOTE 2] 55960-135-76 Medications FLUoxetine 40 mg oral capsule 1 [...] 04/25/21 13:27:00 EDT, Route to Pharmacy Electronically, [id number], Partial fill upon patient request if the prescription is for a schedule II... Start Date: 04/25/21 Status: Ordered ZyPREXA 10 mg oral tablet See Instructions, 1 tablet daily in AM; 1.5 tabs daily at bedtime, # 75 tablet, Refills 0, Tot. Refills 0, Maintenance, 04/25/21 13:26:00 EDT, Instructions Replace Required Details, Route to PharmacyElectronically, [id number], Partial fill up... Start Date: 04/25/21 Status: Ordered Problem List Condition Effective Dates Status Health Status Inform ant Autism(Confirmed) Active Social History Social History Type Response Smoking Status Never smoker; Tobacc o user in household: No entered on: 08/10/18 Sex
--- OUTSIDE RECORDS SUMMARY | 2024-06-13 18:39 | XMS_ITS | Continuity of Care Document ---
Author Organization [facility] Address [address] [place] [address]- Care Team Providers Care Loadmaster Name Role Phone Branch Maday ROBINS Primary Care Physician Encounter [facility] Date(s): 04/02/22 - 05/02/22 [facility] [address] [place] [address] Attending Physician: Luis Crawley Admitting Physician: Luis [...] 7-valent vaccine 03 Given 1Result Comment: [facility] 70640-385-87 Medications FLUoxetine 40 mg oral capsule 1 capsule = 40 mg, By Mouth, Daily, # 30 capsule, 0 Refills, Maintenance, 11/07/21 10:38:00 EST, Capsule, [facility]/pharmacy #[id number], Partial fill upon patient request if the prescription is for a schedule II opioid drug., 175, cm, 11/07/21 8:02:00 EST, Heigh... Start Date: 11/07/21 Status: Ordered melatonin 5 mg oral tablet 1 tablet = 5 mg, By Mouth, Daily at bedtime, # 30 tablet, 1 Refills, Maintenance, 11/07/21 10:38:00EST, Tablet, [facility]/pharmacy #[id number], Partial fill upon patient request if the prescription is for a schedule II opioid drug., 175, cm, 11/07/21 8:02:00 EST... Start Date: 11/07/21 Status: Ordered olanzapine 10 mg oral tablet 10 mg, 1, tablet, By Mouth, Daily, # 30 tablet, Refills 0, Tot. Refills 0, Maintenance, 11/07/21 10:39:00 EST, Route to Pharmacy Electronically, [facility]/pharmacy #[id number], Partial fill upon [...] 11/07/21 10:39:00 EST, Route to Pharmacy Electronically, [facility]/pharmacy #[id number], Partial fill upon patient request if the [...]
--- OUTSIDE RECORDS SUMMARY | 2024-06-13 18:39 | XMS_ITS | Continuity of Care Document ---
Author Organization [facility] Address [address] [place] [address]- Care Team Providers Care Clinical Unit Coordinator Name Role Phone Nagi Bhatti DO Primary Care Physician [place] [facility] [place] Date(s): 01/07/24 - 02/06/24 [facility] [address] [place], [place] [address] Allergies, Adverse Reactions, Alerts No Known [...] pneumococcal 7-valent vaccine 03 Given 1Result Comment: [facility] 49168-705-20 Medications hydrOXYzine pamoate 50 mg oral capsule [...] 05/23/23 14:47:00 EDT, Route to Pharmacy Electronically, [facility], Partial fill upon patient [...] Sustenna,Wellbutrin Past Hospitalizations in 2020 - 2021 [facility] 07/23/22-08/07/22, 11/03/21- 11/07/21, 10/13/21-10/20/21; prior to that, [facility] 10/07/21, [facility] 03/2021 and 02/2021, Social History Social History Type Response Smoking Status Never smoker; Tobacc o user in household: No entered on: 08/10/18 Sex Male Patient Care team information Care Team Personnel Name: Jose Rafael Rodriges RN Position: S RN Member Role: Primary Care Nurse Name: Nagi Bhatti DO Position: [facility] Resident Member Role: PCP Address: Address: [address] [place] [address] [place] [address]- Name: Cammy Villarreal RN Position: S RN [...] Team Related Persons Name: AURA HUFFMAN Address: [place] [address] Name: VANDANA HANKS Address: [place] [address]
--- OUTSIDE RECORDS SUMMARY | 2024-06-13 18:39 | XMS_ITS | Continuity of Care Document ---
Author Organization [facility] Address [address] [place] [address]- Care Team Providers Care Private Advisor Name Role Phone Kathie Ernst DO Primary Care Physician Encounter [facility] Date(s): 02/19/21 - 03/21/21 [facility] [address] [place] [id number] Allergies, Adverse Reactions, Alerts No [...] pneumococcal 7-valent vaccine 03 Given 1Result Comment: [facility] 83964-947-29 Medications FLUoxetine 20 mg oral capsule 20 mg, 1, capsule, By Mouth, Daily, # 30 capsule, Refills 0, Tot. Refills 0, Maintenance, 03/20/21 8:40:00 EDT, Route to Pharmacy Electronically, [facility]/pharmacy #[id number], Partial fill upon patient requestif the prescription is for a schedule II opioid italo... Start Date: 03/20/21 Stop Date: 04/19/21 Status: Ordered hydrOXYzine pamoate 50 mg oral capsule = 50 mg, By Mouth, 3 times a day, PRN Anxiety, # 90 capsule, 0 Refills, Maintenance, 03/20/21 8:43:00 EDT, Capsule, [facility]/pharmacy #[id number], Partial fill upon patient [...] 03/20/21 8:46:00 EDT, Route to Pharmacy Electronically, [facility]/pharmacy #[id number], Partial fill upon patient request if the prescription is for... Start Date: 03/20/21 Stop Date: 04/19/21 Status: Ordered ZyPREXA 7.5 mg oral tablet 7.5 mg, 1, tablet, By Mouth, 2 times a day, # 60 tablet, Refills 0, Tot. Refills 0, Maintenance, 03/20/21 8:42:00 EDT, Route to Pharmacy Electronically, [facility]/pharmacy #[id number], Partial fill upon patient [...]
--- OUTSIDE RECORDS SUMMARY | 2024-06-13 18:39 | XMS_ITS | Continuity of Care Document ---
Author Organization [facility] Address [address] [place] [address]- Care Team Providers Care Middle School Assistant Principal Name Role Phone Kathie Ernst DO Primary Care Physician Encounter [facility] [place] Date(s): 08/15/21 - 09/14/21 [facility] [address] [place], [place] [address] Allergies, Adverse Reactions, Alerts [...] 7-valent vaccine 03 Given 1Result Comment: [facility] 34518-686-11 Medications FLUoxetine 40 mg oral capsule 1 [...] 04/25/21 13:27:00 EDT, Route to Pharmacy Electronically, [facility]/pharmacy #[id number], Partial fill upon patient request if the prescription is for a schedule II... Start Date: 04/25/21 Status: Ordered ZyPREXA 10 mg oral tablet See Instructions, 1 tablet daily in AM; 1.5 tabs daily at bedtime, # 75 tablet, Refills 0, Tot. Refills 0, Maintenance, 04/25/21 13:26:00 EDT, Instructions Replace Required Details, Route to PharmacyElectronically, [facility]/pharmacy #[id number], Partial fill up... Start Date: 04/25/21 Status: Ordered Problem List Condition Effective Dates Status Health Status Inform ant Autism(Confirmed) Active Social History Social History Type Response Smoking Status Never smoker; Tobacc o user in household: No entered on: 08/10/18 Sex
--- OUTSIDE RECORDS SUMMARY | 2024-06-13 18:39 | XMS_ITS | Continuity of Care Document ---
Author Organization [facility] Address [address] [place] [address]- Care Team Providers Care Fuel Distribution System Operator Name Role Phone Branch Maday ROBINS Primary Care Physician Encounter [facility] Date(s): 03/16/22 - 04/15/22 [facility] [address] [place] [id number] Attending Physician: Luis Crawley Admitting Physician: Luis [...] pneumococcal 7-valent vaccine 03 Given 1Result Comment: [facility] 03605-676-53 Medications FLUoxetine 40 mg oral capsule 1 [...] 11/07/21 10:39:00 EST, Route to Pharmacy Electronically, [facility]/pharmacy #[id number], Partial fill upon patient request if [...] 11/07/21 10:39:00 EST, Route to Pharmacy Electronically, [facility]/pharmacy #[id number], Partial fill upon patient request if the [...]
--- OUTSIDE RECORDS SUMMARY | 2024-06-13 18:39 | XMS_ITS | Continuity of Care Document ---
Author Organization [facility] Address [address] [place] [address]- Care Team Providers Care Cutting Table Operator First Name Role Phone Nagi Bhatti DO Primary Care Physician Encounter [facility] [place] Date(s): 02/14/24 - 03/26/24 [facility] [address] [place], [place] [phone] Attending Physician: Not on Staff, Attending MD [...] 1Result Comment: [facility] 66508-398-44 Medications hydrOXYzine pamoate 50 mg oral capsule [...] 05/23/23 14:47:00 EDT, Route to Pharmacy Electronically, [facility], Partial fill upon patient request [...] Sustenna,Wellbutrin Past Hospitalizations in 2020 - 2021 [facility]TU 07/23/22-08/07/22, 11/03/21- 11/07/21, 10/13/21-10/20/21; prior to [...] S Resident Member Role: PCP Address: Address: [address] [place] [address] [place] [address]- Name: Cammy Villarreal RN Position: S RN [...] Team Related Persons Name: AURA HUFFMAN Address: [place] [address] Name: VANDANA HANKS Address: [place] [address] Name: STATES, NO ONE
--- OUTSIDE RECORDS SUMMARY | 2024-06-13 18:39 | XMS_ITS | Continuity of Care Document ---
Author Organization [facility] Address [address] [place] [address]- Care Team Providers Care Date Night Caregiver Name Role Phone Kathie Ernst DO Primary Care Physician Encounter [facility] Date(s): 06/28/21 - 06/29/[address] [address]- Encounter Diagnosis Homicidal ideation(Final) - 06/28/21 Discharge Disposition: A-D/C Home Attending Physician: Bunny ROBINS, Ricarda Ruff Admitting Physician: Ricarda Hollis MD Referring Physician: Not on Staff, Referring [...] 7-valent vaccine 03 Given 1Result Comment: [facility] 35229-797-75 Medications FLUoxetine 40 mg oral capsule 1 [...] Refills, Maintenance, 04/07/21 9:06:00 EDT, Tablet, [facility]/pharmacy #[id number], Partial fill upon patient request if the prescription is for a schedule II opioid drug., 170, cm, 04/06/21 21:12:00 EDT... Start Date: 04/07/21 Status: Ordered traZODone 50 mg oral tablet 50 mg, 1, tablet, By Mouth, Daily at bedtime, # 30 tablet, Refills 0, Tot. Refills 0, Maintenance, 04/25/21 13:27:00 EDT, Route to Pharmacy Electronically, [facility]/pharmacy #[id number], Partial fill upon patient request if the prescription is for a schedule II... Start Date: 04/25/21 Status: Ordered ZyPREXA 10 mg oral tablet See Instructions, 1 tablet daily in AM; 1.5 tabs daily at bedtime, # 75 tablet, Refills 0, Tot. Refills 0, Maintenance, 04/25/21 13:26:00 EDT, Instructions Replace Required Details, Route to PharmacyElectronically, [facility]/pharmacy #[id number], Partial fill up... Start Date: 04/25/21 Status: Ordered Problem List Condition Effective Dates Status Health Status Inform ant Autism(Confirmed) Active Vital Signs Most recent to oldest [Reference Range]: 1 2 3 Height 175 cm (06/29/21 1:41 AM) 175 cm (06/28/21 3:58 PM) Weight 69.5 kg (06/29/21 1:41 AM) 69.5 kg (06/28/21 3:58 PM) Oxygen Saturation [94-100 %] 100 % (06/29/21 10:07 AM) 98 % (06/29/21 1:41 AM) 99 % (06/28/21 3:58 PM) Pulse Rate [55-90 bpm] 66 bpm (06/29/21 10:07 AM) 72 bpm (06/29/21 1:41 AM) 58 bpm (06/28/21 3:58 PM) Body Mass Index [18.5-24.99] 22.69 (06/29/21 1:41 AM) 22.69 (06/28/21 3:58 PM) Blood Pressure [71-110/30-71 mm Hg] 109/52mm Hg (06/29/21 10:07 AM) 99/49mm Hg (06/29/21 1:41 AM) 97/56mm Hg (06/28/21 3:58 PM) Respiratory Rate [16-30 br/min] 18 br/min (06/29/21 10:07 AM) 18 br/min (06/29/21 1:41 AM) 19 br/min (06/28/21 3:58 PM) Temperature [96.8-100.4 DegF] 97.9 DegF (06/29/21 10:07 AM) 97.9 DegF (06/29/21 1:41 AM) 98.7 DegF (06/28/21 3:58 PM) Mode of Delivery (Oxygen) Room air (06/29/21 10:07 AM) Room air (06/29/21 1:41 AM) Room air (06/28/21 3:58 PM) Blood pressure sites Arm, left (06/29/21 10:07 AM) Arm, right (06/29/21 1:41 AM) Arm, right (06/28/21 3:58 PM) Temperature Route Oral (06/29/21 10:07 AM) Oral (06/29/21 1:41 AM) Oral (06/28/21 3:58 PM) Dry Weight 69.5 kg (06/29/21 1:41 AM) 69.5 kg (06/28/21 3:58 PM) Weight Obtained Via Patient/family state d (06/28/21 3:58 PM) Dry Weight Obtained Via Patient/family s tated (06/28/21 3:58 PM) Social History Social History Type Response Smoking Status Never smoker; Tobacc o user in household: No entered on: 08/10/18 Sex
--- OUTSIDE RECORDS SUMMARY | 2024-06-13 18:39 | XMS_ITS | Continuity of Care Document ---
Author Organization [facility] ter Address [address] [place] [address]- Care Team Providers Care Technical Translator Name Role Phone Nagi Bhatti DO Primary Care Physician Encounter [facility] Date(s): 03/09/23 - 03/09/[address] [address]- Discharge Disposition: A-D/C Walkout Attending Physician: Not [...] 12/04/22 Not Given Patient Refuses 1Result Comment: [facility] 99212-250-02 Medications olanzapine 20 mg oral tablet 1 tablet = 20 mg, By Mouth, Daily, # 30 tablet, 0 Refills, Maintenance, 12/10/22 9:01:00 EST, Tablet, [id number], Partial fill upon patient request if the [...] Most recent to oldest [Reference Range]: 1 Oxygen Saturation [94-100 %] 98 % (03/09/23 6:20 PM) Pulse Rate [55-90 bpm] 96 bpm *H* (03/09/23 6:20 PM) Blood Pressure [90-138/55-84 mm Hg] 138/ 71mm Hg (03/09/23 6:20 PM) Respiratory Rate [16-30 br/min] 20 br/mi n (03/09/23 6:20 PM) Temperature [96.8-100.4 DegF] 97.7 DegF (03/09/23 6:20 PM) Mode of Delivery (Oxygen) Room air (03/09/23 6:20 PM) Blood pressure sites Arm, left (03/09/23 6:20 PM) Temperature Route Oral (03/09/23 6:20 PM) Social History Social History Type Response Smoking Status Never smoker; Tobacc o user in household: No entered on: 08/10/18 Sex Patient Care team information Care Team Personnel Name: Jose Rafael Rodriges RN Position: S RN Member Role: Primary Care Nurse Name: Latha Winston RN Position: S RN Member Role: Primary Care Nurse Name: Nagi Bhatti DO Position: [facility] Resident Member Role: PCP Address: Address: [address] [place] [address] Name: Bushra Delacruz RN Position: S RN Member Role: Primary Care Nurse Name: Cammy Villarreal RN Position: S RN Member Role: Primary Care Nurse Name: Cleopatra Lyles RN Position: [facility] RN Supv Member Role: Primary Care Nurse Name: Vannessa Fam RN Position: S RN Member Role: Primary Care Nurse Name: Mague Hendrix RN Position: [facility] ED RN W/OE and Tasks Member Role: Primary Care Nurse Name: Leia Hunter RN Position: S RN Member Role: Primary Care Nurse Name: Jame Allen RN Position: S RN Member Role: Primary Care Nurse Name: Kenzie Leary RN Position: [facility] RN Supv Member Role: Primary Care Nurse Name: Karen Hopkins RN Position: [facility] RN Member Role: Primary Care Nurse Name: Irais Velez RN Position: S RN Member Role: Primary Care Nurse Care Team Related Persons Name: AURA HUFFMAN Address: [address] [place] [address] Name: VANDANA HANKS Address: home [address] [place] [address]
--- OUTSIDE RECORDS SUMMARY | 2024-06-13 18:39 | XMS_ITS | Continuity of Care Document ---
Author Organization [facility] Address [address] [place] [address]- Care Team Providers Care Nutrition Manager Name Role Phone Kathie Ernst DO Primary Care Physician [phone] Encounter [facility] [place] Date(s): 01/27/21 - 02/26/21 [facility] [address] [place], [place] [address] Allergies, Adverse Reactions, Alerts [...] 7-valent vaccine 03 Given 1Result Comment: [facility] 72234-385-56 Medications melatonin 5 mg oral tablet 1 tablet = 5 mg, By Mouth, Daily at bedtime, # 30 tablet, 0 Refills, Maintenance, 10/16/20 18:04:00EST, Tablet, [facility]/pharmacy #[id number], Partial fill upon patient request, [...] 18:04:00 EST, Route to Pharmacy Electronically, [facility]/pharmacy #[id number],... Start Date: 10/16/20 Stop Date: 11/15/20 Status: Ordered traZODone 50 mg oral tablet 50 mg, 1, tablet, By Mouth, Daily at bedtime, PRN, # 30 tablet, Refills 0, Tot. Refills 0, Maintenance, Insomnia, 10/16/20 18:05:00 EST, Route to Pharmacy Electronically, [facility]/pharmacy #[id number], Partial fill upon patient request, 172.5, cm, 10/16/20 16:28... Start Date: 10/16/20 Stop Date: 11/15/20 Status: Ordered ZyPREXA 7.5 mg oral tablet 7.5 mg, 1, tablet, By Mouth, 4 times a day, PRN, Only when anxious, # 30 tablet, Refills 0, Tot. Refills 0, Maintenance, Anxiety, 10/16/20 18:04:00 EST, Route to Pharmacy Electronically, [facility]/pharmacy#[id number], Partial fill upon patient request, 172.5, cm... Start Date: 10/16/20 Stop Date: 11/15/20 Status: Ordered Problem List Condition Effective Dates Status Health Status Inform ant Autism(Confirmed) Active Social History Social History Type Response Smoking Status Never smoker; Tobacc o user in household: No entered on: 08/10/18 Sex
--- OUTSIDE RECORDS SUMMARY | 2024-06-13 18:39 | XMS_ITS | Continuity of Care Document ---
Author Organization [facility] Address [address] [place] [address]- Care Team Providers Care Sliver Chopper Name Role Phone Kathie Ernst DO Primary Care Physician Encounter [facility] Date(s): 06/16/21 - 07/27/21 [facility] [address] [place], [place] [address] Attending Physician: Not on Staff, Attending [...] 7-valent vaccine 03 Given 1Result Comment: [facility] 77970-339-86 Medications FLUoxetine 40 mg oral capsule 1 [...] 04/25/21 13:27:00 EDT, Route to Pharmacy Electronically, [facility]/pharmacy #[id number], Partial fill upon patient request if the prescription is for a schedule II... Start Date: 04/25/21 Status: Ordered ZyPREXA 10 mg oral tablet See Instructions, 1 tablet daily in AM; 1.5 tabs daily at bedtime, # 75 tablet, Refills 0, Tot. Refills 0, Maintenance, 04/25/21 13:26:00 EDT, Instructions Replace Required Details, Route to PharmacyElectronically, [facility]/pharmacy #[id number], Partial fill up... Start Date: 04/25/21 Status: Ordered Problem List Condition Effective Dates Status Health Status Inform ant Autism(Confirmed) Active Social History Social History Type Response Smoking Status Never smoker; Tobacc o user in household: No entered on: 08/10/18 Sex
--- OUTSIDE RECORDS SUMMARY | 2024-06-13 18:39 | XMS_ITS | Continuity of Care Document ---
Author Organization [facility] Address [address] [place] [address]- Care Team Providers Care Care Support Representative Name Role Phone Branch Maday ROBINS Primary Care Physician Encounter [facility] Date(s): 03/19/22 - 05/02/22 [facility] [address] [place] [id number] Attending Physician: Christine Carbajal MD Admitting Physician: Christine Carbajal MD Allergies, Adverse Reactions, Alerts No Known [...] pneumococcal 7-valent vaccine 03 Given 1Result Comment: [facility] [place] 67587-083-44 Medications FLUoxetine 40 mg oral capsule 1 [...] tablet, 1 Refills, Maintenance, 11/07/21 10:38:00EST, Tablet, [facility]/pharmacy #[id number], Partial fill upon patient request if the prescription is for a schedule II opioid drug., 175, cm, 11/07/21 8:02:00 EST... Start Date: 11/07/21 Status: Ordered olanzapine 10 mg oral tablet 10 mg, 1, tablet, By Mouth, Daily, # 30 tablet, Refills 0, Tot. Refills 0, Maintenance, 11/07/21 10:39:00 EST, Route to Pharmacy Electronically, [facility]/pharmacy #[id number], Partial fill upon [...] 11/07/21 10:39:00 EST, Route to Pharmacy Electronically, [facility]/pharmacy #[id number], Partial fill upon patient request if the [...]
--- OUTSIDE RECORDS SUMMARY | 2024-06-13 18:39 | XMS_ITS | Continuity of Care Document ---
Author Organization [facility] Address [address] [place] [address]- Care Team Providers Care Patent Clerk Name Role Phone Kathie Ernst DO Primary Care Physician [phone] [place] [facility] [place] 01[place]21 [facility] [address] [address], [place] [address] Allergies, Adverse Reactions, Alerts No Known [...] Comment: [facility] [id number] Medications melatonin 5 mg oral tablet 1 tablet = 5 mg, By Mouth, Daily at bedtime, # 30 tablet, 0 Refills, Maintenance, 10/16/20 18:04:00EST, Tablet, [facility]/pharmacy #[id number], Partial fill upon patient request, [...] 10/16/20 18:04:00 EST, Route to Pharmacy Electronically, [facility]/pharmacy #[id number],... Start Date: 10/16/20 Stop Date: 11/15/20 Status: Ordered traZODone 50 mg oral tablet 50 mg, 1, tablet, By Mouth, Daily at bedtime, PRN, # 30 tablet, Refills 0, Tot. Refills 0, Maintenance, Insomnia, 10/16/20 18:05:00 EST, Route to Pharmacy Electronically, [facility]/pharmacy #[id number], Partial fill upon patient request, 172.5, cm, 10/16/20 16:28... Start Date: 10/16/20 Stop Date: 11/15/20 Status: Ordered ZyPREXA 7.5 mg oral tablet 7.5 mg, 1, tablet, By Mouth, 4 times a day, PRN, Only when anxious, # 30 tablet, Refills 0, Tot. Refills 0, Maintenance, Anxiety, 10/16/20 18:04:00 EST, Route to Pharmacy Electronically, [facility]/pharmacy#[id number], Partial fill upon patient request, 172.5, cm... Start Date: 10/16/20 Stop Date: 11/15/20 Status: Ordered Problem List Condition Effective Dates Status Health Status Inform ant Autism(Confirmed) Active Social History Social History Type Response Smoking Status Never smoker; Tobacc o user in household: No entered on: 08/10/18 Sex
--- OUTSIDE RECORDS SUMMARY | 2024-06-13 18:39 | XMS_ITS | Continuity of Care Document ---
Author Organization [facility] ter Address [address] [place] [address]- Care Team Providers Care Paper Tube Grader Name Role Phone Kathie Ernst DO Primary Care Physician [place] [facility] [place] - 06/01/[address] [address]- Encounter Diagnosis Head injury, suicidal ideology(Final) - 06/01/21 Discharge Disposition: A-D/C Home Attending Physician: Cherri De La Cruz MD Admitting Physician: Cherri De La Cruz MD Referring Physician: Not on Staff, Referring [...] pneumococcal 7-valent vaccine 03 Given 1Result Comment: [facility] [id number] Medications FLUoxetine 40 mg oral capsule 1 [...] 1 Refills, Maintenance, 04/07/21 9:06:00 EDT, Tablet, [facility]/pharmacy #[id number], Partial fill upon patient request if the prescription is for a schedule II opioid drug., 170, cm, 04/06/21 21:12:00 EDT... Start Date: 04/07/21 Status: Ordered traZODone 50 mg oral tablet 50 mg, 1, tablet, By Mouth, Daily at bedtime, # 30 tablet, Refills 0, Tot. Refills 0, Maintenance, 04/25/21 13:27:00 EDT, Route to Pharmacy Electronically, [facility]/pharmacy #[id number], Partial fill upon patient request if the prescription is for a schedule II... Start Date: 04/25/21 Status: Ordered ZyPREXA 10 mg oral tablet See Instructions, 1 tablet daily in AM; 1.5 tabs daily at bedtime, # 75 tablet, Refills 0, Tot. Refills 0, Maintenance, 04/25/21 13:26:00 EDT, Instructions Replace Required Details, Route to PharmacyElectronically, [facility]/pharmacy #[id number], Partial fill up... Start Date: 04/25/21 Status: Ordered Problem List Condition Effective Dates Status Health Status Inform ant Autism(Confirmed) Active Vital Signs Most recent to oldest [Reference Range]: 1 2 3 Oxygen Saturation [94-100 %] 98 % (06/01/21 6:56 PM) 99 % (06/01/21 3:25 PM) 100 % (06/01/21 1:12 PM) Pulse Rate [55-90 bpm] 70 bpm (06/01/21 6:56 PM) 71 bpm (06/01/21 3:25 PM) 69 bpm (06/01/21 1:12 PM) Blood Pressure [71-110/30-71 mm Hg] 104/60mm Hg (06/01/21 7:26 PM) 100/57mm Hg (06/01/21 6:56 PM) 99/57mm Hg (06/01/21 3:25 PM) Respiratory Rate [16-30 br/min] 19 br/min (06/01/21 6:56 PM) 18 br/min (06/01/21 3:25 PM) 18 br/min (06/01/21 1:12 PM) Temperature [96.8-100.4 DegF] 97.5 DegF (06/01/21 6:56 PM) 97.5 DegF (06/01/21 3:25 PM) 97.5 DegF (06/01/21 1:12 PM) Mode of Delivery (Oxygen) Room air (06/01/21 6:56 PM) Room air (06/01/21 3:25 PM) Room air (06/01/21 1:12 PM) Blood pressure sites Arm, right (06/01/21 6:56 PM) Arm, right (06/01/21 3:25 PM) Arm, right (06/01/21 1:12 PM) Temperature Route Oral (06/01/21 6:56 PM) Oral (06/01/21 3:25 PM) Oral (06/01/21 1:12 PM) Social History Social History Type Response Smoking Status Never smoker; Tobacc o user in household: No entered on: 08/10/18 Sex
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
--- OUTSIDE RECORDS SUMMARY | 2024-06-13 18:39 | XMS_ITS | Continuity of Care Document ---
Author Organization [facility] Address [address] [place] [address]- Care Team Providers Care Strip Mill Operator Name Role Phone Not on Staff, PCP Primary Care Physician Unavail able [facility] Date(s): 02/15/23 - 05/20/23 [facility] [address] [place] [address]- Attending Physician: Christine Carbajal MD Admitting Physician: [...] 12/04/22 Not Given Patient Refuses 1Result Comment: [facility] 63960-618-16 Medications olanzapine 20 mg oral tablet 1 tablet = 20 mg, By Mouth, Daily, # 30 tablet, 0 Refills, Maintenance, 12/10/22 9:01:00 EST, Tablet, [id number], Partial fill upon patient request if the [...] Personnel Name: Jose Rafael Rodriges RN Position: [facility] RN Member Role: Primary Care Nurse Name: Latha Winston RN Position: [facility] RN Member Role: Primary Care Nurse Name: Cammy Villarreal RN Position: [facility] RN Member Role: Primary Care Nurse Name: Cleopatra Lyles RN Position: [facility] RN Supv Member Role: Primary Care Nurse Name: Vannessa Fam RN Position: [facility] RN Member Role: Primary Care Nurse Name: Mague Hendrix RN Position: [facility] ED RN W/OE and Tasks Member Role: Primary Care Nurse Name: Not on Staff, PCP Position: [facility] Physician (General Medicine) Member Role: PCP Name: Leia Hunter RN Position: [facility] RN Member Role: Primary Care Nurse Name: Jame Allen RN Position: [facility] RN Member Role: Primary Care Nurse Name: Kenzie Leary RN Position: [facility] RN Supv Member Role: Primary Care Nurse Name: Irais Velez RN Position: [facility] RN Member Role: Primary Care Nurse Care Team Related Persons Name: AURA HUFFMAN Address: home [address] [place] [address] Name: VANDANA HANKS Address: home [address] [place] [address]
--- OUTSIDE RECORDS SUMMARY | 2024-06-13 18:39 | XMS_ITS | Continuity of Care Document ---
Author Organization [facility] Address [address] [place] [address]- Care Team Providers Care Certified Pedorthotist Name Role Phone Kathie Ernst DO Primary Care Physician [phone] [place] [facility] [place]s): 03/03[place]21 - 04/02/21 [facility] [address] [place], [place] [address] Allergies, Adverse Reactions, Alerts [...] 7-valent vaccine 03 Given 1Result Comment: [facility] [id number] Medications FLUoxetine 20 mg oral capsule 20 mg, 1, capsule, By Mouth, Daily, # 30 capsule, Refills 0, Tot. Refills 0, Maintenance, 03/20/21 8:40:00 EDT, Route to Pharmacy Electronically, [facility]/pharmacy #[id number], Partial fill upon patient requestif the prescription is for a schedule II opioid italo... Start Date: 03/20/21 Stop Date: 04/19/21 Status: Ordered hydrOXYzine pamoate 50 mg oral capsule = 50 mg, By Mouth, 3 times a day, PRN Anxiety, # 90 capsule, 0 Refills, Maintenance, 03/20/21 8:43:00 EDT, Capsule, [facility]/pharmacy #[id number], Partial fill upon [...] 03/20/21 8:46:00 EDT, Route to Pharmacy Electronically, [facility]/pharmacy #[id number], Partial fill upon patient request if the prescription is for... Start Date: 03/20/21 Stop Date: 04/19/21 Status: Ordered ZyPREXA 7.5 mg oral tablet 7.5 mg, 1, tablet, By Mouth, 2 times a day, # 60 tablet, Refills 0, Tot. Refills 0, Maintenance, 03/20/21 8:42:00 EDT, Route to Pharmacy Electronically, [facility]/pharmacy [...]
--- OUTSIDE RECORDS SUMMARY | 2024-06-13 18:39 | XMS_ITS | Continuity of Care Document ---
Author Organization [facility] Address [address] [place] [address]- Care Team Providers Care Customer Service Clerk Name Role Phone Not on Staff, PCP Primary Care Physician Unavail able [facility] Date[facility]s): 06/24/22 - 07/24/22 [facility] [address] [place], [place] [address] Allergies, Adverse Reactions, Alerts No Known Medication [...] pneumococcal 7-valent vaccine 03 Given 1Result Comment: [facility] [id number] Medications Caplyta 42 mg oral capsule 1 [...] 11/07/21 10:39:00 EST, Route to Pharmacy Electronically, [facility]/pharmacy #[id number], Partial fill upon patient request if the [...] 100 in lifetime) entered on: 07/23/22 Sex Care Team Personnel Name: Not on Staff, PCP
--- OUTSIDE RECORDS SUMMARY | 2024-06-13 18:39 | XMS_ITS | Continuity of Care Document ---
Author Organization [facility] Address [address] [place] [address]- Care Team Providers Care Spanish Instructor Name Role Phone Nagi Bhatti DO Primary Care Physician [facility] [place] 02/25/24 - 03/26/24 [facility] [address] [place], [place] [phone] Attending Physician: Luis Crawley Admitting Physician: Luis [...] 7-valent vaccine 03 Given 1Result Comment: [facility] 32074-565-88 Medications hydrOXYzine pamoate 50 mg oral capsule [...] 05/23/23 14:47:00 EDT, Route to Pharmacy Electronically, [facility], Partial fill upon patient [...] Sustenna,Wellbutrin Past Hospitalizations in 2020 - 2021 [facility] 07/23/22-08/07/22, 11/03/21- 11/07/21, 10/13/21-10/20/21; prior to [...] CHILTON Resident Member Role: PCP Address: Address: [address] [place] [address] [place] [address]- Name: Cammy Villarreal RN Position: S RN [...] Care Nurse Care Team Related Persons Name: HUFFMAN, AURA Address: [place] [address] Name: VANDANA HANKS Address: [place] [address] Name: STATES, NO ONE
--- OUTSIDE RECORDS SUMMARY | 2024-06-13 18:39 | XMS_ITS | Continuity of Care Document ---
Author Organization [facility] Address [address] [place] [address]- Care Team Providers Care Candle Pourer Name Role Phone Not on Staff, PCP Primary Care Physician Unavail able [facility]counter [facility] Date(s): 10/24/21 - 11/23/21 [facility] [address] [place] [address]- Attending Physician: Luis Crawley Admitting Physician: Luis [...] pneumococcal 7-valent vaccine 03 Given 1Result Comment: [facility] [id number] Medications FLUoxetine 40 mg oral capsule 1 [...] tablet, 1 Refills, Maintenance, 11/07/21 10:38:00EST, Tablet, [facility]/pharmacy #[id number], Partial fill upon patient request if the prescription is for a schedule II opioid drug., 175, cm, 11/07/21 8:02:00 EST... Start Date: 11/07/21 Status: Ordered olanzapine 10 mg oral tablet 10 mg, 1, tablet, By Mouth, Daily, # 30 tablet, Refills 0, Tot. Refills 0, Maintenance, 11/07/21 10:39:00 EST, Route to Pharmacy Electronically, [facility]/pharmacy #[id number], Partial fill upon patient request [...] 11/07/21 10:39:00 EST, Route to Pharmacy Electronically, [facility]/pharmacy #[id number], Partial fill upon patient request if the prescription is for a schedule II... Start Date: 11/07/21 Status: Ordered Problem List Condition Effective Dates Status Health Status Inform ant Autism(Confirmed) Active Social History Social History Type Response Smoking Status Never smoker; Tobacc o user in household: No entered on: 08/10/18 Sex
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
--- OUTSIDE RECORDS SUMMARY | 2024-06-13 18:39 | XMS_ITS | Continuity of Care Document ---
Author Organization [facility] Address [address] [place] [address]- Care Team Providers Care Stamper Blocker Name Role Phone Not on Staff, PCP Primary Care Physician Unavail able Encounter [facility] Date(s): 04/15/23 - 05/15/23 [facility] [address] [place], [place] [address] Attending Physician: Luis Crawley Admitting Physician: Luis Crawley Referring Physician: Luis Crawley Allergies, Adverse Reactions, Alerts No Known Medication [...] 12/04/22 Not Given Patient Refuses 1Result Comment: [facility] 67993-589-17 Medications olanzapine 20 mg oral tablet 1 tablet = 20 mg, By Mouth, Daily, # 30 tablet, 0 Refills, Maintenance, 12/10/22 9:01:00 EST, Tablet, [id number], Partial fill upon patient request if the [...] Personnel Name: Jose Rafael Rodriges RN Position: [facility] RN Member Role: Primary Care Nurse Name: Latha Winston RN Position: [facility] RN Member Role: Primary Care Nurse Name: Cammy Villarreal RN Position: [facility] RN Member Role: Primary Care Nurse Name: Cleopatra Lyles RN Position: [facility] RN Supv Member Role: Primary Care Nurse Name: Vannessa Fam RN Position: [facility] RN Member Role: Primary Care Nurse Name: Mague Hendrix RN Position: [facility] ED RN W/OE and Tasks Member Role: Primary Care Nurse Name: Not on Staff, PCP Position: [facility] Physician (General Medicine) Member Role: PCP Name: Leia Hunter RN Position: [facility] RN Member Role: Primary Care Nurse Name: Jame Allen RN Position: [facility] RN Member Role: Primary Care Nurse Name: Kenzie Leary RN Position: [facility] RN Supv Member Role: Primary Care Nurse Name: Irais Velez RN Position: [facility] RN Member Role: Primary Care Nurse Care Team Related Persons Name: AURA HUFFMAN Address: [place] [address] Name: VANDANA HANKS Address: [place] [address]
--- OUTSIDE RECORDS SUMMARY | 2024-06-13 18:39 | XMS_ITS | Continuity of Care Document ---
Author Organization [facility] ter Address [address] [place] [address]- Care Team Providers Care Steam Bone Press Tender Name Role Phone Kathie Ernst DO Primary Care Physician Encounter [facility] [place] [place] Date(s): 01/24/21 - 01/24/[address] [address]- Discharge Disposition: A-D/C Home Attending Physician: Bert Casillas MD Admitting Physician: [...] 1Result Comment: [facility] [id number] Medications melatonin 5 mg oral tablet 1 tablet = 5 mg, By Mouth, Daily at bedtime, # 30 tablet, 0 Refills, Maintenance, 10/16/20 18:04:00EST, Tablet, [facility]/pharmacy #[id number], Partial fill upon [...] 10/16/20 18:04:00 EST, Route to Pharmacy Electronically, [facility]/pharmacy #[id number],... Start Date: 10/16/20 Stop Date: 11/15/20 Status: Ordered traZODone 50 mg oral tablet 50 mg, 1, tablet, By Mouth, Daily at bedtime, PRN, # 30 tablet, Refills 0, Tot. Refills 0, Maintenance, Insomnia, 10/16/20 18:05:00 EST, Route to Pharmacy Electronically, [facility]/pharmacy #[id number], Partial fill upon patient request, 172.5, cm, 10/16/20 16:28... Start Date: 10/16/20 Stop Date: 11/15/20 Status: Ordered ZyPREXA 7.5 mg oral tablet 7.5 mg, 1, tablet, By Mouth, 4 times a day, PRN, Only when anxious, # 30 tablet, Refills 0, Tot. Refills 0, Maintenance, Anxiety, 10/16/20 18:04:00 EST, Route to Pharmacy Electronically, [facility]/pharmacy#[id number], Partial fill upon patient request, 172.5, cm... Start Date: 10/16/20 Stop Date: 11/15/20 Status: Ordered Problem List Condition Effective Dates Status Health Status Inform ant Autism(Confirmed) Active Social History Social History Type Response Smoking Status Never smoker; Tobacc o user in household: No entered on: 08/10/18 Sex
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
--- OUTSIDE RECORDS SUMMARY | 2024-06-13 18:39 | XMS_ITS | Continuity of Care Document ---
Author Organization [facility] Address [address] [place] [address]- Care Team Providers Care Detention Officer Name Role Phone Nagi Bhatti DO Primary Care Physician Encounter [facility] Date(s): 03/25/23 - 04/30/23 [facility] [address] [place] [address] Attending Physician: Not on Staff, [...] 12/04/22 Not Given Patient Refuses 1Result Comment: [facility] 80599-577-65 Medications olanzapine 20 mg oral tablet 1 tablet = 20 mg, By Mouth, Daily, # 30 tablet, 0 Refills, Maintenance, 12/10/22 9:01:00 EST, Tablet, [id number], Partial fill upon patient request if the [...] Personnel Name: Jose Rafael Rodriges RN Position: [facility] RN Member Role: Primary Care Nurse Name: Latha Winston RN Position: [facility] RN Member Role: Primary Care Nurse Name: Nagi Bhatti DO Position: [facility] Resident Member Role: PCP Address: Address: [address] [place] [address] [place] [address]- Name: Cammy Villarreal RN Position: S RN Member Role: Primary Care Nurse Name: Cleoparta Lyles RN Position: [facility] RN Supv Member Role: Primary Care Nurse Name: Vannessa Fam RN Position: [facility] RN Member Role: Primary Care Nurse Name: Mague Hendrix RN Position: [facility] ED RN W/OE and Tasks Member Role: Primary Care Nurse Name: Leia Hunter RN Position: [facility] RN Member Role: Primary Care Nurse Name: Jame Allen RN Position: [facility] RN Member Role: Primary Care Nurse Name: Kenzie Leary RN Position: [facility] RN Supv Member Role: Primary Care Nurse Name: Irais Velez RN Position: [facility] RN Member Role: Primary Care Nurse Care Team Related Persons Name: AURA HUFFMAN Address: [place] [address] Name: VANDANA HANKS Address: [place] [address]
--- OUTSIDE RECORDS SUMMARY | 2024-06-13 18:40 | XMS_ITS | Continuity of Care Document ---
Author Organization [facility] Address [address] [place] [address]- Care Team Providers Care Master [place] Name Role Phone Nagi Bhatti DO Primary Care Physician [phone] Encounter [facility] Date(s): 01/20/23 - 02/19/23 [facility] [address] [place], [place] [address] Allergies, Adverse Reactions, Alerts No Known Medication [...] 12/04/22 Not Given Patient Refuses 1Result Comment: [facility] 29698-186-72 Medications Medrol Dosepak 4 mg oral tablet 1 pack/packet, By Mouth, Daily, for 6 days, as directed on package labeling, # 21 tablet, 0 Refills, Acute 02/22/23 22:18:00 EDT, 02/16/23 22:18:00 EDT, Tablet, [facility][id number], Partial fill upon patient request if the prescription is for a schedul... Start Date: 02/16/23 Stop Date: 02/22/23 Status: Ordered olanzapine 20 mg oral tablet 1 tablet = 20 mg, By Mouth, Daily, # 30 tablet, 0 Refills, Maintenance, 12/10/22 9:01:00 EST, [id number], Partial fill upon patient request if the [...] S Resident Member Role: PCP Address: Address: [address] [place] [address] [place] [address]- Name: Bushra Delacruz RN Position: S RN Member Role: Primary Care Nurse Name: Cammy Villarreal RN Position: S RN Member Role: Primary Care Nurse Name: Cleopatra Lyles RN Position: [facility] [...] Care Nurse Name: Karen Hopkins RN Position: [facility] RN Member Role: Primary Care Nurse Name: Irais Velez RN Position: S RN Member Role: Primary Care Nurse Care Team Related Persons Name: AURA HUFFMAN Address: home [address] [place] [id number] Name: VANDANA HANKS Address: home [address] [place] [address]
--- OUTSIDE RECORDS SUMMARY | 2024-06-13 18:40 | XMS_ITS | Continuity of Care Document ---
Author Organization [facility] ter Address [address] [place] [address]- Care Team Providers Care Enrollment Processor Name Role Phone Nagi Bhatti DO Primary Care Physician [phone] Encounter [facility] Date(s): 11/22/23 - 11/23/[address] [address]- Encounter Diagnosis Schizophrenia(Final) - 11/23/23 Schizophrenia(Final) - 11/23/23 Discharge Disposition: Transfer to [facility] Facility Attending Physician: Eric Hsieh MD Admitting Physician: Eric Hsieh MD Referring Physician: Not on Staff, Referring [...] 1Result Comment: [facility] 19296-013-08 Medications hydrOXYzine pamoate 50 mg oral capsule [...] 05/23/23 14:47:00 EDT, Route to Pharmacy Electronically, [facility], Partial fill upon patient request if the prescription is for a schedule I... Start Date: 05/23/23 Stop Date: 06/20/23 Status: Ordered traZODone 50 mg oral tablet 50 mg, 1, tablet, By Mouth, Daily at bedtime, PRN, # 14 tablet, Refills 1, Tot. Refills 1, Maintenance, Insomnia, 05/23/23 14:47:00 EDT, Route to Pharmacy Electronically, [facility], Partial fill upon patient request if [...] Range]: 1 2 Oxygen Saturation [94-100 %] 96 % (11/23/23 10:25 AM) 100 % (11/22/23 11:56 PM) Pulse Rate [55-90 bpm] 106 bpm *H* (11/23/23 10:25 AM) 99 bpm *H* (11/22/23 11:56 PM) Blood Pressure [90-138/55-84 mm Hg] 114/ 68mm Hg (11/23/23 10:25 AM) 113/68mm Hg (11/22/23 11:56 PM) Respiratory Rate [16-30 br/min] 19 br/mi n (11/22/23 11:56 PM) Temperature [96.8-100.4 DegF] 97.7 DegF (11/23/23 10:25 AM) 98.2 DegF (11/22/23 11:56 PM) Mode of Delivery (Oxygen) Room air (11/23/23 10:25 AM) Room air (11/22/23 11:56 PM) Blood pressure sites Arm, right (11/22/23 11:56 PM) Temperature Route Oral (11/23/23 10:25 AM) Oral (11/22/23 11:56 PM) Social History Social History Type Response Smoking Status Never smoker; Tobacc o user in household: No entered on: 08/10/18 Sex Patient Care team information Care Team Personnel Name: Jose Rafael Rodriges RN Position: [facility] RN Member Role: Primary Care Nurse Name: Latha Winston RN Position: [facility] RN Member Role: Primary Care Nurse Name: Nagi Bhatti DO Position: [facility] Resident Member Role: PCP Address: Address: [address] [place] [address] [place] [address]- Name: Cammy Villarreal RN Position: [facility] RN Member Role: Primary Care Nurse Name: Cleopatra Lyles RN Position: [facility] RN Member Role: Primary Care Nurse Name: Vannessa Fam RN Position: [facility] RN Member Role: Primary Care Nurse Name: Mague Hendrix RN Position: [facility] ED RN W/OE and Tasks Member Role: Primary Care Nurse Name: Leia Hunter RN Position: [facility] RN Member Role: Primary Care Nurse Name: Jame Allen RN Position: [facility] RN Member Role: Primary Care Nurse Name: Kenzie Leary RN Position: [facility] RN Member Role: Primary Care Nurse Name: Leo Ayala RN Position: [facility] RN Member Role: Primary Care Nurse Name: Irais Velez RN Position: [facility] RN Member Role: Primary Care Nurse [facility] Attending Position: [facility] ED Attendings Patient Name: Jori ROBINS, Eric Peck Position: [facility] ED Medicine MD Member Role: Admitting Physician Address: Address: [address] [facility] [place] [address]- [place] Name: Thelma Kumar Position: S ED TA [facility] Name: Merly GARCES, Kasi Position: S ED RN W/OE and Tasks Member Role: Patient Care Provider Care Team Related Persons Name: AURA HUFFMAN Address: [place] [address] Name: VANDANA HANKS Address: [place] [address]
--- OUTSIDE RECORDS SUMMARY | 2024-06-13 18:40 | XMS_ITS | Continuity of Care Document ---
Author Organization [facility] Address [address] [place] [address]- Care Team Providers Care Primary Teacher Name Role Phone Kathie Ernst DO Primary Care Physician [place] [facility] [place] 12[place]20 [facility] [address], [place] [address] Allergies, Adverse Reactions, Alerts No [...] 7-valent vaccine 03 Given 1Result Comment: [facility] [id number] Medications melatonin 5 mg oral tablet 1 tablet = 5 mg, By Mouth, Daily at bedtime, # 30 tablet, 0 Refills, Maintenance, 10/16/20 18:04:00EST, Tablet, [facility]/pharmacy #[id number], Partial fill upon patient request, 172.5, [...] 10/16/20 18:04:00 EST, Route to Pharmacy Electronically, [facility]/pharmacy #[id number],... Start Date: 10/16/20 Stop Date: 11/15/20 Status: Ordered traZODone 50 mg oral tablet 50 mg, 1, tablet, By Mouth, Daily at bedtime, PRN, # 30 tablet, Refills 0, Tot. Refills 0, Maintenance, Insomnia, 10/16/20 18:05:00 EST, Route to Pharmacy Electronically, [facility]/pharmacy #[id number], Partial fill upon patient request, 172.5, cm, 10/16/20 16:28... Start Date: 10/16/20 Stop Date: 11/15/20 Status: Ordered ZyPREXA 7.5 mg oral tablet 7.5 mg, 1, tablet, By Mouth, 4 times a day, PRN, Only when anxious, # 30 tablet, Refills 0, Tot. Refills 0, Maintenance, Anxiety, 10/16/20 18:04:00 EST, Route to Pharmacy Electronically, [facility]/pharmacy#[id number], Partial fill upon patient request, 172.5, cm... Start Date: 10/16/20 Stop Date: 11/15/20 Status: Ordered Problem List Condition Effective Dates Status Health Status Inform ant Autism(Confirmed) Active Social History Social History Type Response Smoking Status Never smoker; Tobacc o user in household: No entered on: 08/10/18 Sex
--- OUTSIDE RECORDS SUMMARY | 2024-06-13 18:40 | XMS_ITS | Continuity of Care Document ---
Author Organization [facility] Address [address] [place] [address]- Care Team Providers Care Environmental Engineering Technician Name Role Phone Not on Staff, PCP Primary Care Physician Unavail able Encounter [facility] Date(s): 10/10/21 - 11/09/21 [facility] [address] [place] [id number] Allergies, Adverse Reactions, Alerts [...] 1Result Comment: [facility] 49478-055-22 Medications FLUoxetine 40 mg oral capsule 1 capsule = 40 mg, By Mouth, Daily, # 30 capsule, 0 Refills, Maintenance, 11/07/21 10:38:00 EST, Capsule, [facility]/pharmacy #[id number], Partial fill upon patient request [...] 11/07/21 10:39:00 EST, Route to Pharmacy Electronically, [facility]/pharmacy #[id number], Partial fill upon patient request if the prescription is for a schedule II... Start Date: 11/07/21 Status: Ordered Problem List Condition Effective Dates Status Health Status Inform ant Autism(Confirmed) Active Social History Social History Type Response Smoking Status Never smoker; Tobacc o user in household: No entered on: 08/10/18 Sex
--- OUTSIDE RECORDS SUMMARY | 2024-06-13 18:40 | XMS_ITS | Continuity of Care Document ---
Author Organization [facility] ter Address [address] [place] [address]- Care Team Providers Care Phone Screener Name Role Phone Nagi Bhatti DO Primary Care Physician Encounter [facility] Date(s): 02/16/23 - 02/16/[address] [address]- Discharge Disposition: A-D/C Home Attending Physician: Yaron Jain MD Admitting Physician: Yaron Jain MD Referring Physician: Not on Staff, Referring [...] Not Given Patient Refuses 1Result Comment: [facility] [id number] Medications Medrol Dosepak 4 mg oral tablet 1 pack/packet, By Mouth, Daily, for 6 days, as directed on package labeling, # 21 tablet, 0 Refills, Acute 02/22/23 22:18:00 EDT, 02/16/23 22:18:00 EDT, Tablet, [facility]/pharmacy #[id number], Partial fill upon patient request if the prescription is for a schedul... Start Date: 02/16/23 Stop Date: 02/22/23 Status: Ordered olanzapine 20 mg oral tablet 1 tablet = 20 mg, By Mouth, Daily, # 30 tablet, 0 Refills, Maintenance, 12/10/22 9:01:00 EST, Tablet, [facility] #[id number], Partial fill upon patient request if the [...] 3 Oxygen Saturation [94-100 %] 100 % (02/16/23 10:23 PM) 97 % (02/16/23 8:20 PM) 97 % (02/16/23 6:15 PM) Pulse Rate [55-90 bpm] 75 bpm (02/16/23 10:23 PM) 65 bpm (02/16/23 8:20 PM) 64 bpm (02/16/23 6:15 PM) Blood Pressure [90-138/55-84 mm Hg] 115/74mm Hg (02/16/23 10:23 PM) 127/80mm Hg (02/16/23 8:20 PM) 128/71mm Hg (02/16/23 6:15 PM) Respiratory Rate [16-30 br/min] 17 br/min (02/16/23 10:23 PM) 15 br/min *L* (02/16/23 8:20 PM) 16 br/min (02/16/23 6:15 PM) Temperature [96.8-100.4 DegF] 97.8 DegF (02/16/23 10:23 PM) 98.3 DegF (02/16/23 6:15 PM) Mode of Delivery (Oxygen) Room air (02/16/23 10:23 PM) Room air (02/16/23 8:20 PM) Room air (02/16/23 6:15 PM) Blood pressure sites Arm, right (02/16/23 8:20 PM) Arm, left (02/16/23 6:15 PM) Temperature Route Oral (02/16/23 10:23 PM) Oral (02/16/23 6:15 PM) Social History Social History Type Response Smoking Status Never smoker; Tobacc o user in household: No entered on: 08/10/18 Sex Note * Susy ROBINS, Yaron R: PERFORM, SIGN, VERIFY Event Display: Patient Education Handout Authored Date: [id number] Patient Care team information Care Team Personnel Name: Jose Rafael Rodriges RN Position: S RN Member Role: Primary Care Nurse Name: Latha Winston RN Position: S RN Member Role: Primary Care Nurse Name: Nagi Bhatti DO Position: S Resident Member Role: PCP Address: Address: [address] [place] [address] [place] [address]- Name: Bushra Delacruz RN Position: S RN Member Role: Primary Care Nurse Name: Cammy Villarreal RN Position: S RN Member Role: Primary Care Nurse Name: Cleopatra Lyles RN Position: [facility] RN Supv Member Role: Primary Care Nurse Name: Vannessa Fam RN Position: [facility] RN Member Role: Primary Care Nurse Name: Mague Hednrix RN Position: [facility] ED RN W/OE and Tasks Member Role: Primary Care Nurse Name: Leia Hunter RN Position: [facility] RN Member Role: Primary Care Nurse Name: Jame Allen RN Position: [facility] RN Member Role: Primary Care Nurse Name: Kenzie Leary RN Position: [facility] RN Supv Member Role: Primary Care Nurse Name: Karen Hopkins RN Position: [facility] RN Member Role: Primary Care Nurse Name: Irais Velez RN Position: [facility] RN Member Role: Primary Care Nurse Name: Yaron Jain MD Position: [facility] ED Medicine MD Member Role: Admitting Physician Address: Address: [address] [place] [address] Name: Bijal Ferguson Position: [facility] ED TA [facility] Member Role: Patient Care Provider Name: Devang Yang RN Position: [facility] ED RN W/OE and Tasks Member Role: Patient Care Provider Care Team Related Persons Name: AURA HUFFMAN Address: home [address] [place] [address] Name: VANDANA HANKS Address: home [address] [place] [address]
--- OUTSIDE RECORDS SUMMARY | 2024-06-13 18:40 | XMS_ITS | Continuity of Care Document ---
Author Organization [facility] ter Address [address] [place] [address]- Care Team Providers Care Editorial Clerk Name Role Phone Kathie Ernst DO Primary Care Physician [place] [facility] [place] - 01/25/[address] [address]- Encounter Diagnosis Pain in the abdomen(Final) - 01/25/21 Discharge Disposition: A-D/C Home Attending Physician: Dillon Stevens MD Admitting Physician: Dillon Stevens MD Referring Physician: Not on Staff, Referring [...] Given 1Result Comment: [facility] [id number] Medications melatonin 5 mg oral tablet 1 [...] to Pharmacy Electronically, [facility]/pharmacy #[id number],... Start Date: 10/16/20 Stop Date: 11/15/20 Status: [...] Route to Pharmacy Electronically, [facility]/pharmacy#[id number], Partial fill upon patient request, 172.5, cm... Start Date: 10/16/20 Stop Date: 11/15/20 Status: Ordered Problem List Condition Effective Dates Status Health Status Inform ant Autism(Confirmed) Active Vital Signs Most recent to oldest [Reference Range]: 1 2 3 Height 176 cm (01/25/21 9:20 AM) 176 cm (01/25/21 6:27 AM) 176 cm (01/24/21 6:17 PM) Weight 63 kg (01/25/21:20 AM) 63 kg (01/25/21:27 AM) 63 kg (01/24/21 6:17 PM) Oxygen Saturation [94-100 %] 100 % (01/25/21 9:20 AM) 99 % (01/25/21 6:27 AM) 98 % (01/24/21 5:48 PM) Pulse Rate [55-90 bpm] 82 bpm (01/25/21:20 AM) 97 bpm *H* (01/25/21 6:27 AM) 107 bpm *H* (01/24/21 5:48 PM) Body Mass Index [18.5-24.99] 20.34 (01/25/21 9:20 AM) 20.34 (01/25/21 6:27 AM) 20.34 (01/24/21 5:48 PM) Blood Pressure [80-130/50-80 mm Hg] 116/82mm Hg (01/25/21 9:20 AM) 117/56mm Hg (01/25/21 6:27 AM) 114/67mm Hg (01/24/21 5:48 PM) Respiratory Rate [16-30 br/min] 16 br/min (01/25/21 9:20 AM) 16 br/min (01/25/21:27 AM) 20 br/min (01/24/21 5:48 PM) Temperature [96.8-100.4 DegF] 98.1 DegF (01/25/21 9:20 AM) 97.9 DegF (01/25/21:27 AM) 98.6 DegF (01/24/21 5:48 PM) Mode of Delivery (Oxygen) Room air (01/25/21 9:20 AM) Room air (01/25/21:27 AM) Room air (01/24/21 5:48 PM) Blood pressure sites Arm, left (01/25/21 9:20 AM) Arm, right (01/25/21:27 AM) Arm, left (01/24/21 5:48 PM) Temperature Route Oral (01/25/21 9:20 AM) Oral (01/25/21:27 AM) Temporal (01/24/21 5:48 PM) Dry Weight 63 kg (01/25/21 9:20 AM) 63 kg (01/25/21:27 AM) 63 kg (01/24/21 6:17 PM) Weight Obtained Via Standing scale (01/25/21 9:20 AM) Standing scale (01/25/21 6:27 AM) Standing scale (01/24/21 5:48 PM) Dry Weight Obtained Via Standing scale (01/25/21 9:20 AM) Standing scale (01/25/21:27 AM) Standing scale (01/24/21 5:48 PM) Social History Social History Type Response Smoking Status Never smoker; Tobacc o user in household: No entered on: 08/10/18 Sex
--- OUTSIDE RECORDS SUMMARY | 2024-06-13 18:40 | XMS_ITS | Continuity of Care Document ---
Author Organization [facility] Address [address] [place] [address]- Care Team Providers Care Photonics Engineer Name Role Phone Kathie Ernst DO Primary Care Physician [phone] Encounter [facility] Date(s): 01/24/21 - 02/23/21 [facility] [address], [place] [address] Attending Physician: Richar Frost MD Admitting Physician: Richar Frost MD Allergies, Adverse Reactions, Alerts No Known [...] Comment: [facility] 85031-134-66 Medications melatonin 5 mg oral tablet 1 tablet = 5 mg, By Mouth, Daily at bedtime, # 30 tablet, 0 Refills, Maintenance, 10/16/20 18:04:00EST, Tablet, [facility]/pharmacy #[id number], Partial fill [...] 10/16/20 18:04:00 EST, Route to Pharmacy Electronically, [facility]/pharmacy #[id number],... Start Date: 10/16/20 Stop Date: 11/15/20 Status: Ordered traZODone 50 mg oral tablet 50 mg, 1, tablet, By Mouth, Daily at bedtime, PRN, # 30 tablet, Refills 0, Tot. Refills 0, Maintenance, Insomnia, 10/16/20 18:05:00 EST, Route to Pharmacy Electronically, [facility]/pharmacy #[id number], Partial fill upon patient request, 172.5, cm, 10/16/20 16:28... Start Date: 10/16/20 Stop Date: 11/15/20 Status: Ordered ZyPREXA 7.5 mg oral tablet 7.5 mg, 1, tablet, By Mouth, 4 times a day, PRN, Only when anxious, # 30 tablet, Refills 0, Tot. Refills 0, Maintenance, Anxiety, 10/16/20 18:04:00 EST, Route to Pharmacy Electronically, [facility]/pharmacy#[id number], Partial fill upon patient request, 172.5, cm... Start Date: 10/16/20 Stop Date: 11/15/20 Status: Ordered Problem List Condition Effective Dates Status Health Status Inform ant Autism(Confirmed) Active Vital Signs Most recent to oldest [Reference Range]: 1 Height 172.5 cm 1 (01/24/21 1:59 PM) Weight 60.1 kg 2 (01/24/21 1:59 PM) Body Mass Index [18.5-24.99] 20.2 (01/24/21 1:59 PM) Dry Weight 60.1 kg 3 (01/24/21 1:59 PM) 1Result Comment: obtained 10/16/20 2Result Comment: obtained 10/16/20 3Result Comment: obtained [phone] Social History Social History Type Response Smoking Status Never smoker; Tobacc o user in household: No entered on: 08/10/18 Sex
--- OUTSIDE RECORDS SUMMARY | 2024-06-13 18:40 | XMS_ITS | Continuity of Care Document ---
Author Organization [facility] ter Address [address] [place] [address]- Care Team Providers Care Assistant Signal Maintainer Name Role Phone Nagi Bhatti DO Primary Care Physician [phone] Encounter [facility] [place] Date(s): 03/12/24 - 03/13/[address] [address]- Encounter Diagnosis Suicidal ideation(Final) - 03/12/24 Autism(Final) - 03/12/24 Schizophrenia(Final) - 03/12/24 Bipolar disorder(Final) - 03/12/24 Discharge Disposition: Transfer to [facility] Attending Physician: Ricarda Hollis MD Admitting [...] 03 Given 1Result Comment: [facility] [id number] Medications hydrOXYzine pamoate 50 mg oral capsule [...] 05/23/23 14:47:00 EDT, Route to Pharmacy Electronically, [facility], Partial fill upon patient [...] 3 Oxygen Saturation [94-100 %] 99 % (03/13/24 8:19 AM) 99 % (03/12/24 8:36 PM) 96 % (03/12/24 5:39 PM) Pulse Rate [55-90 bpm] 58 bpm (03/13/24 8:19 AM) 76 bpm (03/12/24 8:36 PM) 76 bpm (03/12/24 5:39 PM) Blood Pressure [90-138/55-84 mm Hg] 106/60mm Hg (03/13/24 8:19 AM) 127/78mm Hg (03/12/24 8:36 PM) 113/68mm Hg (03/12/24 5:39 PM) Respiratory Rate [16-30 br/min] 16 br/min (03/13/24 8:19 AM) 18 br/min (03/12/24 8:36 PM) 16 br/min (03/12/24 5:39 PM) Temperature [96.8-100.4 DegF] 98.0 DegF (03/13/24 8:19 AM) 97.7 DegF (03/12/24 8:36 PM) Mode of Delivery (Oxygen) Room air (03/13/24 8:19 AM) Room air (03/12/24 8:36 PM) Room air (03/12/24 5:39 PM) Blood pressure sites Arm, right (03/13/24 8:19 AM) Arm, left (03/12/24 8:36 PM) Arm, left (03/12/24 5:39 PM) Temperature Route Oral (03/13/24 8:19 AM) Oral (03/12/24 8:36 PM) Social History Social History Type Response Smoking Status Never smoker; Tobacc o user in household: No entered on: 08/10/18 Sex Male Patient Care team information Care Team Personnel Name: Jose Rafael Rodriges RN Position: [facility] RN Member Role: Primary Care Nurse Name: aNgi Bhatti DO Position: [facility] Resident Member Role: PCP Address: Address: [address] [place] [address] Name: Cammy Villarreal RN Position: S RN [...] Related Persons Name: AURA HUFFMAN Address: home [address] [place] [address] Name: VANDANA HANKS Address: home [address] [place] [address] Name: PT STATES, NO ONE
--- OUTSIDE RECORDS SUMMARY | 2024-06-13 18:40 | XMS_ITS | Continuity of Care Document ---
Author Organization [facility] Address [address] [place] [address]- Care Team Providers Care Senior Site Manager Name Role Phone Not on Staff, PCP Primary Care Physician Unavail able Encounter [facility] Date(s): 03/04/23 - 05/15/23 [facility] [address] [place] [address]- Attending Physician: Yves Grimm MD Admitting Physician: [...] 12/04/22 Not Given Patient Refuses 1Result Comment: [facility] [id number] Medications olanzapine 20 mg oral tablet 1 tablet = 20 mg, By Mouth, Daily, # 30 tablet, 0 Refills, Maintenance, 12/10/22 9:01:00 EST, Tablet, [facility] #[id number], Partial fill upon patient request if the [...] Personnel Name: Jose Rafael Rodriges RN Position: [facility] RN Member Role: Primary Care Nurse Name: Latha Winston RN Position: [facility] RN Member Role: Primary Care Nurse Name: Cammy Villarreal RN Position: [facility] RN Member Role: Primary Care Nurse Name: Cleopatra Lyles RN Position: [facility] RN Supv Member Role: Primary Care Nurse Name: Vannessa Fam RN Position: [facility] RN Member Role: Primary Care Nurse Name: Mague Hendrix RN Position: [facility] ED RN W/OE and Tasks Member Role: Primary Care Nurse Name: Not on Staff, PCP Position: [facility] Physician (General Medicine) Member Role: PCP Name: Leia Hunter RN Position: [facility] RN Member Role: Primary Care Nurse Name: Jame Allen RN Position: [facility] RN Member Role: Primary Care Nurse Name: Kenzie Leary RN Position: [facility] RN Supv Member Role: Primary Care Nurse Name: Irais Velez RN Position: [facility] RN Member Role: Primary Care Nurse Care Team Related Persons Name: AURA HUFFMAN Address: [place] [address] Name: VANDANA HANKS Address: [place] [address]
[2024-06-13 20:00] VITALS: BP 111/65; PULSE 71; RESP 16; TEMP 36.8; O2SAT 98
[2024-06-13 20:06] VITALS: BMI 33.1
--- NOTE | 2024-06-13 23:37 | PC.ADMIT ---
Leo Escamilla (M, 19)? was admitted to M3 at 18:49 from [facility] on a CV for the treatment of SI with psychotic features. Pt has a diagnosis of Schizophrenia and Autism. Precipitants of this admission include feeling unsafe at home having SI w/plan to hang and feeling as if someone was watching him while they were sleeping. Pt lost his brother 1 month ago. Is a sibling of 6 and lives with mother. Pt denies hearing voices, but appears to be internally preoccupied, unable to focus on questions asked, thought blocking. Patient is overall calm and? cooperative with the admission process. Per patient paranoia is ?very common? for him. Denies SI/HI at this time, reports that SI and feeling depressed are an everyday occurance for him since 2018. Pt reports nightmares, denies substance use issues (tox screen negative). 15 min checks. See nursing assessment for more details.
[2024-06-14 08:00] VITALS: BP 101/52; PULSE 64; RESP 24; TEMP 36.8; O2SAT 97
[2024-06-14 09:04] LABS: Estimated Average Glucose 80 mg/dL; Hemoglobin A1c % 4.4 % (<6.0)
[2024-06-14 09:12] LABS: Cholesterol 152 mg/dL (<200); HDL Cholesterol 45 mg/dL (>40); LDL Cholesterol Calculated 70 mg/dL (<100); Triglycerides 188 mg/dL (<150)
[2024-06-14 09:27] LABS: Free T4 (Free Thyroxine) 0.81 ng/dL (0.71-1.85); Thyroid Stimulating Hormone 2.67 uIU/mL (0.32-4.0)
[2024-06-14 09:40] LABS: Folate 11.2 ng/mL (> or = 4.0); Vitamin B12 508 pg/mL (200-900)
--- NOTE | 2024-06-14 11:13 | HO.PM.IMCN ---
History of Present Illness Data of Consult Service Date: 06/14/24 Primary Care Provider: [facility] HPI Reason for consult: Admission H&P Pt is a 19-year-old male with a PMH significant for?autism, depression, and schizophrenia who is admitted to psychiatry unit for increasing depression with psychotic features and SI. Patient's family report patient has been increasingly paranoid and suicidal. Medical consult for admission H&P. Patient complains only of having dry eyes, otherwise denies any acute medical complaints. No fever, chills, nausea, vomiting, abdominal pain. No chest pain/pressure, palpitations. Denies shortness of breath or difficulty breathing. No headache or acute vision changes. No changes to bowel or bladder habits. Records from [facility] reviewed, grossly unremarkable. Review of Systems Review of Systems: Dry eyes Patient otherwise has no acute medical complaints at this time [facility] Medical History Autism Schizophrenia Social History Household Members: Family Household Members Other:: mom, sister, brother in law, nieces Housing: Other Housing Other:: duplex Do you presently have visiting nurse or other home services: No Patient Tobacco Use Status: Never used Tobacco Smoked in Last 30 Days: Yes e-Cigarette/Vaping Use: Former Use Patient Interested in Nicotine Replacement: No Patient Given Instructions on How to Stop Smoking: No Second Hand Smoke Exposure: No Use of substances other than those prescribed or required for medical reasons: No Currently Displaying Signs/Symptoms of Drug Intoxication Withdrawal: No Do you feel safe in your current relationship?: No Current Relationship Is there a partner from a previous relationship who is making you feel unsafe now?: No Are you made to feel afraid or neglected: No ( 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 ) Spiritual Healthcare Practices: none Sabianism Healthcare Practices: none Cultural Healthcare Practices: none Advance Directives: No Advance Directives Information Provided: No Do you have thoughts of harming others: None Do you have a plan to hurt others: No Plan Recently lost weight without trying: No Eating poorly because of decreased appetite: No Nutrition Risks: No Nutritional Risk Poor oral hygiene: No service: No Sexual orientation: Don't Know Meds Allergies Allergy/AdvReac Type Severity Reaction Status Date / Time No Known Allergies Allergy Verified 01/15/22 07:31 Active Medications: Current Medications Acetaminophen (Acetaminophen 325 Mg Tablet) 650 mg PO Q6H PRN PRN Reason: Headache/Pain Mild Scale (1-3) Al Hydroxide/Mg Hydroxide (Magnesium Hydrox/Alum Hydrox 30 Ml Oral.Susp) 30 ml PO Q6H PRN PRN Reason: Heartburn/Nausea Hydroxyzine HCl (Hydroxyzine Hcl 25 Mg Tablet) 25 mg PO Q6H PRN PRN Reason: Anxiety Magnesium Hydroxide (Milk Of Magnesia 30 Ml Oral.Susp) 30 ml PO DAILY PRN PRN Reason: Constipation Nicotine Polacrilex (Nicotine Polacrilex 2 Mg Gum) 4 mg BUCCAL Q2H PRN PRN Reason: Nicotine Cravings Trazodone HCl (Trazodone Hcl 50 Mg Tablet) 50 mg PO BEDTIME MRX1 PRN PRN Reason: Insomnia Home Medications ?Medication ?Instructions ?Recorded ?Confirmed ?Last Taken ?Type divalproex 500 mg tablet,extended 1,000 mg PO DAILY 06/13/24 06/13/24 06/12/24 21:30 History release 24 hr 1000 melatonin 3 mg capsule 6 mg PO BEDTIME 06/13/24 06/13/24 06/12/24 21:35 History 6 mg mirtazapine 7.5 mg tablet 7.5 mg PO BEDTIME 06/13/24 06/13/24 06/12/24 21:35 History olanzapine 10 mg tablet (Zyprexa) 10 mg PO BEDTIME 06/13/24 06/13/24 Unknown History Physical Exam Vital Signs and Narrative: Vital Signs: Last Vital Signs Temp 98.3 F 06/14/24 08:00 Pulse 64 06/14/24 08:00 Resp 24 H 06/14/24 08:00 BP 101/52 L 06/14/24 08:00 Pulse Ox 97 06/14/24 08:00 O2 Del Method Room Air 06/14/24 08:00 BMI result Body Mass Index 33.1 General: AOx3, no acute distress Resp: CTA bilaterally CVS: S1, S2, RRR GI: +BS, NT, no distention Skin: Warm, dry Neuro: Cranial nerves II-XII grossly intact bilaterally. Motor grossly intact bilaterally Extremities: No edema Results Labs Labs: Laboratory Results - last 24 hr 07/24/24 08:43 Estimat Average Glucose 80 Hemoglobin A1c % 4.4 Triglycerides 188 H Cholesterol 152 LDL Cholesterol, Calc 70 HDL Cholesterol 45 Vitamin B12 508 Folate 11.2 TSH 2.67 Free T4 0.81 Assessment and Plan (1) Medical clearance for psychiatric admission: Status: Acute Plan Pt is a 19-year-old male with a PMH significant for?autism, depression, and schizophrenia who is admitted to M3 psychiatry unit for increasing depression with psychotic features and SI. Patient's family report patient has been increasingly paranoid and suicidal. Medical consult for admission H&P. Patient complains only of having dry eyes, otherwise denies any acute medical complaints. Mood disorder Plan as per Psychiatry Keratoconjunctivitis sicca Patient complains of having dry eyes Denies contact use Artificial tears prn The patient otherwise has no acute medical complaints or chronic medical conditions. Will sign off at this time. Thank you for allowing us to participate in the care of this patient. Please re-consult if any acute issue or need arises.
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
[2024-06-14] MEDS: Divalproex Sodium ER 500 MG TAB.ER.24H 1000 MG PO (13:00)
[2024-06-14 20:59] VITALS: BP 121/67; PULSE 90; TEMP 36.8; O2SAT 96
[2024-06-14] MEDS: OLANZapine 10 MG TABLET 20 MG PO (22:09)
[2024-06-14] MEDS: Melatonin 3 MG TABLET 6 MG PO (22:10)
[2024-06-14] MEDS: Mirtazapine 7.5 MG TABLET PO (22:10)
[2024-06-15 07:00] VITALS: BMI 33.0
[2024-06-15 08:00] VITALS: BP 107/56; PULSE 62; RESP 14; TEMP 36.8; O2SAT 97
[2024-06-15] MEDS: Divalproex Sodium ER 500 MG TAB.ER.24H 1500 MG PO (09:09)
[2024-06-15] MEDS: hydrOXYzine HCL 25 MG TABLET PO (15:27)
--- NOTE | 2024-06-15 18:22 | HO.PSYCHPN ---
Subjective Subjective Date of Service: 06/15/24 Reason For Visit: major depressive disorder, recurrent episode Interim History: reports feeling calm, tired. denies SI/HI. per staff, 3-day up 06/19. taking meds. singing loudly in sensory room. self-dialoguing. Mental Status Exam Mental Status Exam Narrative: adequately dressed and groomed. cooperative. no PMA/PMR. speech nml rate, decr amount, nml loudness, flattened tone, incr latency. thoughts linear and logical but often incr CARLTON and perhaps blocking versus AH interfering. appeared distracted. affect generally blunted. mood calm, tired. denies SI/HI. no AVH expressed. Diagnostics Vital Signs (24Hr): Vital Signs - 24 hr 06/14/24 20:59 06/15/24 08:00 Temperature 98.2 F 98.2 F Pulse Rate 90 62 Respiratory Rate 14 Blood Pressure 121/67 107/56 L Pulse Oximetry 96 97 Oxygen Delivery Method Room Air Room Air BMI result Body Mass Index 33.0 Labs Labs: Laboratory Results - last 48 hr 06/14/24 08:43 Estimat Average Glucose 80 Hemoglobin A1c % 4.4 Triglycerides 188 H Cholesterol 152 LDL Cholesterol, Calc 70 HDL Cholesterol 45 Vitamin B12 508 Folate 11.2 TSH 2.67 Free T4 0.81 Medications Medications Current Medications Acetaminophen (Acetaminophen 325 Mg Tablet) 650 mg PO Q6H PRN PRN Reason: Headache/Pain Mild Scale (1-3) Al Hydroxide/Mg Hydroxide (Magnesium Hydrox/Alum Hydrox 30 Ml Oral.Susp) 30 ml PO Q6H PRN PRN Reason: Heartburn/Nausea Artificial Tears (Artificial Tears 15 Ml Drops) 2 drop EYE-BOTH Q4H PRN PRN Reason: Dry Eyes Divalproex Sodium (Divalproex Sodium Er 500 Mg Tab.Er.24h) 1,500 mg PO DAILY [facility] Last Admin: 06/15/24 09:09 Dose: 1,500 mg Hydroxyzine HCl (Hydroxyzine Hcl 25 Mg Tablet) 25 mg PO Q6H PRN PRN Reason: Anxiety Last Admin: 06/15/24 15:27 Dose: 25 mg Magnesium Hydroxide (Milk Of Magnesia 30 Ml Oral.Susp) 30 ml PO DAILY PRN PRN Reason: Constipation Melatonin (Melatonin 3 Mg Tablet) 6 mg PO BEDTIME [facility] Last Admin: 06/14/24 22:10 Dose: 6 mg Mirtazapine (Mirtazapine 7.5 Mg Tablet) 7.5 mg PO BEDTIME [facility] Last Admin: 06/14/24 22:10 Dose: 7.5 mg Nicotine Polacrilex (Nicotine Polacrilex 2 Mg Gum) 4 mg BUCCAL Q2H PRN PRN Reason: Nicotine Cravings Olanzapine (Olanzapine 10 Mg Tablet) 20 mg PO BEDTIME [facility] Last Admin: 06/14/24 22:09 Dose: 20 mg Trazodone HCl (Trazodone Hcl 50 Mg Tablet) 50 mg PO BEDTIME MRX1 PRN PRN Reason: Insomnia Allergies Allergies Allergy/AdvReac Type Severity Reaction Status Date / Time No Known Allergies Allergy Verified 01/15/22 07:31 Assessment & Plan Assessment & Plan (1) Medical clearance for psychiatric admission: Status: Acute Code(s): Z00.8 - Encounter for other general examination Assessment and Plan: Pt is a 19-year-old male with a PMH significant for?autism, depression, and schizophrenia who is admitted to psychiatry unit for increasing depression with psychotic features and SI. Patient's family report patient has been increasingly paranoid and suicidal. Medical consult for admission H&P. Patient complains only of having dry eyes, otherwise denies any acute medical complaints. Mood disorder Plan as per Psychiatry Keratoconjunctivitis sicca Patient complains of having dry eyes Denies contact use Artificial tears prn The patient otherwise has no acute medical complaints or chronic medical conditions. Will sign off at this time. Thank you for allowing us to participate in the care of this patient. Please re-consult if any acute issue or need arises. (2) Autism: Status: Chronic Code(s): F84.0 - Autistic disorder (3) Schizophrenia: Qualifiers: Schizophrenia type: paranoid schizophrenia Qualified Code(s): F20.0 - Paranoid schizophrenia Status: Chronic Code(s): F20.9 - Schizophrenia, unspecified Plan 06/14: increase VPA from 1000 mg daily to 1500 mg daily. increase zyprexa at HS from 10 mg to 20 mg. otherwise continue current mgmt. 06/15: feeling calm and tired. continue current mgmt. per collateral from [facility], pt receives invega sustenna 156 mg monthly, last given 05/16. will consult with prescriber re raising dose. Reason for continued inpatient stay Substantial Risk for: harm to self, harm to others and inability to function Time Spent With Patient Time: Total time managing care of this patient today __25__ minutes.
[2024-06-15 20:00] VITALS: BP 130/68; PULSE 101; RESP 16; TEMP 36.9; O2SAT 96
[2024-06-15] MEDS: OLANZapine 10 MG TABLET 20 MG PO (20:30)
[2024-06-15] MEDS: Mirtazapine 7.5 MG TABLET PO (20:30)
[2024-06-15] MEDS: Melatonin 3 MG TABLET 6 MG PO (20:30)
[2024-06-16 07:40] VITALS: BP 107/56; PULSE 55; RESP 18; TEMP 36.7; O2SAT 95
[2024-06-16 08:17] VITALS: BP 107/56; PULSE 55; RESP 18; TEMP 36.7; O2SAT 95
[2024-06-16] MEDS: Divalproex Sodium ER 500 MG TAB.ER.24H 1500 MG PO (09:29)
--- NOTE | 2024-06-16 15:24 | P.PNPSI_ITS ---
Subjective Subjective Date of Service: 06/16/24 Reason For Visit: major depressive disorder, recurrent episode Interim History: calm, cooperative. less hesitant, more spontaneous and fluid. reports he is sleeping well and his mood is the same. per staff, 3-day up next . not attending groups. +dep/anx. withdrawn and guarded. talking about his fears, god, and PTSD. variable eye contact. CAH to harm self @ NOC. singing loudly eves. slept about 8 hours. Mental Status Exam Mental Status Exam Narrative: adequately dressed and groomed. cooperative. no PMA/PMR. speech nml rate, decr amount, nml loudness, flattened tone, incr latency. thoughts linear and logical. appears much less distracted. affect generally blunted. mood the same. denies SI/SIBI/HI. endorses AH at NOC. Diagnostics Vital Signs (24Hr): Vital Signs - 24 hr 06/15/24 20:00 06/16/24 07:40 06/16/24 08:17 Temperature 98.5 F 98.1 F 98.1 F Pulse Rate 101 H 55 55 Respiratory Rate 16 18 18 Blood Pressure 130/68 107/56 L 107/56 L Pulse Oximetry 96 95 95 Oxygen Delivery Method Room Air Room Air BMI result Body Mass Index 33.0 Medications Medications Current Medications Acetaminophen (Acetaminophen 325 Mg Tablet) 650 mg PO Q6H PRN PRN Reason: Headache/Pain Mild Scale (1-3) Al Hydroxide/Mg Hydroxide (Magnesium Hydrox/Alum Hydrox 30 Ml Oral.Susp) 30 ml PO Q6H PRN PRN Reason: Heartburn/Nausea Artificial Tears (Artificial Tears 15 Ml Drops) 2 drop EYE-BOTH Q4H PRN PRN Reason: Dry Eyes Divalproex Sodium (Divalproex Sodium Er 500 Mg Tab.Er.24h) 1,500 mg PO DAILY [facility] Last Admin: 06/16/24 09:29 Dose: 1,500 mg Hydroxyzine HCl (Hydroxyzine Hcl 25 Mg Tablet) 25 mg PO Q6H PRN PRN Reason: Anxiety Last Admin: 06/15/24 15:27 Dose: 25 mg Magnesium Hydroxide (Milk Of Magnesia 30 Ml Oral.Susp) 30 ml PO DAILY PRN PRN Reason: Constipation Melatonin (Melatonin 3 Mg Tablet) 6 mg PO BEDTIME [facility] Last Admin: 06/15/24 20:30 Dose: 6 mg Mirtazapine (Mirtazapine 7.5 Mg Tablet) 7.5 mg PO BEDTIME [facility] Last Admin: 06/15/24 20:30 Dose: 7.5 mg Nicotine Polacrilex (Nicotine Polacrilex 2 Mg Gum) 4 mg BUCCAL Q2H PRN PRN Reason: Nicotine Cravings Olanzapine (Olanzapine 10 Mg Tablet) 20 mg PO BEDTIME [facility] Last Admin: 06/15/24 20:30 Dose: 20 mg Paliperidone Palmitate (Paliperidone Palmitate 156 Mg/Ml Syringe) 156 mg IM Q30D [facility] Trazodone HCl (Trazodone Hcl 50 Mg Tablet) 50 mg PO BEDTIME MRX1 PRN PRN Reason: Insomnia Allergies Allergies Allergy/AdvReac Type Severity Reaction Status Date / Time No Known Allergies Allergy Verified 01/15/22 07:31 Assessment & Plan Assessment & Plan (1) Medical clearance for psychiatric admission: Status: Acute Code(s): Z00.8 - Encounter for other general examination Assessment and Plan: Pt is a 19-year-old male with a PMH significant for?autism, depression, and schizophrenia who is admitted to [facility] psychiatry unit for increasing depression with psychotic features and SI. Patient's family report patient has been increasingly paranoid and suicidal. Medical consult for admission H&P. Patient complains only of having dry eyes, otherwise denies any acute medical complaints. Mood disorder Plan as per Psychiatry Keratoconjunctivitis sicca Patient complains of having dry eyes Denies contact use Artificial tears prn The patient otherwise has no acute medical complaints or chronic medical conditions. Will sign off at this time. Thank you for allowing us to parti cipate in the care of this patient. Please re-consult if any acute issue or need arises. (2) Autism: Status: Chronic Code(s): F84.0 - Autistic disorder (3) Schizophrenia: Qualifiers: Schizophrenia type: paranoid schizophrenia Qualified Code(s): F20.0 - Paranoid schizophrenia Status: Chronic Code(s): F20.9 - Schizophrenia, unspecified Plan 06/14: increase VPA from 1000 mg daily to 1500 mg daily. increase zyprexa at HS from 10 mg to 20 mg. otherwise continue current mgmt. 06/15: feeling calm and tired. continue current mgmt. per collateral from [facility], pt receives invega sustenna 156 mg monthly, last given 05/16. will consult with prescriber re raising dose. 06/16: give invega sustenna, was due yesterday. 156 mg. continue current mgmt otherwise. improved from admission. less distracted, more fluid, CARLTON trending toward normal. Reason for continued inpatient stay Substantial Risk for: harm to self, harm to others, inability to function and rapid decompensation Time Spent With Patient Time: Total time managing care of this patient today _25___ minutes.
[2024-06-16] MEDS: Paliperidone Palmitate 156 MG/ML SYRINGE IM (18:50)
[2024-06-16 20:00] VITALS: BP 135/76; PULSE 98; RESP 18; TEMP 36.8; O2SAT 97
[2024-06-16] MEDS: OLANZapine 10 MG TABLET 20 MG PO (21:25)
[2024-06-16] MEDS: Melatonin 3 MG TABLET 6 MG PO (21:25)
[2024-06-16] MEDS: Mirtazapine 7.5 MG TABLET PO (21:26)
[2024-06-17 08:00] VITALS: BP 112/57; PULSE 65; TEMP 36.6; O2SAT 97
[2024-06-17] MEDS: Divalproex Sodium ER 500 MG TAB.ER.24H 1500 MG PO (09:05)
--- NOTE | 2024-06-17 10:34 | P.PNPSI_ITS ---
Subjective Subjective Date of Service: 06/17/24 Reason For Visit: major depressive disorder, recurrent episode Subjective Notes: Conditional Voluntary and 3 Day Interim History: Patient was seen and discussed in rounds today. Records and plans were reviewed. He is doing better, more visible. Eating and sleeping adequately and has been medication compliant. No AVH. No SI. Received his long-acting injection yesterday. Eating and sleeping adequately. No changes were made Review of Systems Review of Systems Yes all other systems are reviewed and are negative Mental Status Exam Mental Status Exam Narrative: In today's visit he is alert, pleasant and interactive. Normal speech. Moderate eye contact. Affect is appropriate and varied. No acute signs of psychosis observed. No SI. Cognitively intact Diagnostics Vital Signs (24Hr): Vital Signs - 24 hr 06/16/24 20:00 06/17/24 08:00 Temperature 98.3 F 98 F Pulse Rate 98 65 Respiratory Rate 18 Blood Pressure 135/76 112/57 L Pulse Oximetry 97 97 Oxygen Delivery Method Room Air BMI result Body Mass Index 33.0 Medications Medications Current Medications Acetaminophen (Acetaminophen 325 Mg Tablet) 650 mg PO Q6H PRN PRN Reason: Headache/Pain Mild Scale (1-3) Al Hydroxide/Mg Hydroxide (Magnesium Hydrox/Alum Hydrox 30 Ml Oral.Susp) 30 ml PO Q6H PRN PRN Reason: Heartburn/Nausea Artificial Tears (Artificial Tears 15 Ml Drops) 2 drop EYE-BOTH Q4H PRN PRN Reason: Dry Eyes Divalproex Sodium (Divalproex Sodium Er 500 Mg Tab.Er.24h) 1,500 mg PO DAILY [facility] Last Admin: 06/17/24 09:05 Dose: 1,500 mg Hydroxyzine HCl (Hydroxyzine Hcl 25 Mg Tablet) 25 mg PO Q6H PRN PRN Reason: Anxiety Last Admin: 06/15/24 15:27 Dose: 25 mg Magnesium Hydroxide (Milk Of Magnesia 30 Ml Oral.Susp) 30 ml PO DAILY PRN PRN Reason: Constipation Melatonin (Melatonin 3 Mg Tablet) 6 mg PO BEDTIME [facility] Last Admin: 06/16/24 21:25 Dose: 6 mg Mirtazapine (Mirtazapine 7.5 Mg Tablet) 7.5 mg PO BEDTIME [facility] Last Admin: 06/16/24 21:26 Dose: 7.5 mg Nicotine Polacrilex (Nicotine Polacrilex 2 Mg Gum) 4 mg BUCCAL Q2H PRN PRN Reason: Nicotine Cravings Olanzapine (Olanzapine 10 Mg Tablet) 20 mg PO BEDTIME [facility] Last Admin: 06/16/24 21:25 Dose: 20 mg Paliperidone Palmitate (Paliperidone Palmitate 156 Mg/Ml Syringe) 156 mg IM Q30D [facility] Last Admin: 06/16/24 18:50 Dose: 156 mg Trazodone HCl (Trazodone Hcl 50 Mg Tablet) 50 mg PO BEDTIME MRX1 PRN PRN Reason: Insomnia Allergies Allergies Allergy/AdvReac Type Severity Reaction Status Date / Time No Known Allergies Allergy Verified 01/15/22 07:31 Assessment & Plan Assessment & Plan (1) Medical clearance for psychiatric admission: Status: Acute Code(s): Z00.8 - Encounter for other general examination Assessment and Plan: Pt is a 19-year-old male with a PMH significant for?autism, depression, and schizophrenia who is admitted to psychiatry unit for increasing depression with psychotic features and SI. Patient's family report patient has been increasingly paranoid and suicidal. Medical consult for admission H&P. Patient complains only of having dry eyes, otherwise denies any acute medical complaints. Mood disorder Plan as per Psychiatry Keratoconjunctivitis sicca Patient complains of having dry eyes Denies contact use Artificial tears prn The patient otherwise has no acute medical complaints or chronic medical conditions. Will sign off at this time. Thank you for allowing us to participate in the care of this patient. Please re-consult if any acute issue or need arises. 06/17: Continue current regimen and plans (2) Autism: Status: Chronic Code(s): F84.0 - Autistic disorder (3) Schizophrenia: Qualifiers: Schizophrenia type: paranoid schizophrenia Qualified Code(s): F20.0 - Paranoid schizophrenia Status: Chronic Code(s): F20.9 - Schizophrenia, unspecified Plan 06/14: increase VPA from 1000 mg daily to 1500 mg daily. increase zyprexa at HS from 10 mg to 20 mg. otherwise continue current mgmt. 06/15: feeling calm and tired. continue current mgmt. per collateral from [facility], pt receives invega sustenna 156 mg monthly, last given 05/16. will consult with prescriber re raising dose. 06/16: give invega sustenna, was due yesterday. 156 mg. continue current mgmt otherwise. improved from admission. less distracted, more fluid, CARLTON trending toward normal. Reason for continued inpatient stay Substantial Risk for: med/psych decompensation Time Spent With Patient Time: Total time managing care of this patient today ____ minutes.
[2024-06-17] MEDS: Acetaminophen 325 MG TABLET 650 MG PO (17:28)
[2024-06-17] MEDS: hydrOXYzine HCL 25 MG TABLET PO (17:28)
[2024-06-17 20:00] VITALS: BP 120/65; PULSE 88; RESP 18; TEMP 37.1; O2SAT 95
[2024-06-17] MEDS: OLANZapine 10 MG TABLET 20 MG PO (21:10)
[2024-06-17] MEDS: Mirtazapine 7.5 MG TABLET PO (21:11)
[2024-06-17] MEDS: Melatonin 3 MG TABLET 6 MG PO (21:11)
[2024-06-18] MEDS: Divalproex Sodium ER 500 MG TAB.ER.24H 1500 MG PO (09:10)
[2024-06-18 09:41] VITALS: BP 114/78; PULSE 78; RESP 12; TEMP 36.6; O2SAT 98
--- NOTE | 2024-06-18 10:36 | P.PNPSI_ITS ---
Subjective Subjective Date of Service: 06/18/24 Reason For Visit: major depressive disorder, recurrent episode Subjective Notes: Conditional Voluntary and 3 Day Interim History: Patient was seen and discussed in rounds today. Records and plans were reviewed. He has been stable, visible. Compliant with medications with no complaints or side effects. No complaints of depression but still has anxiety. He is still somewhat guarded. Eating and sleeping adequately. No complaints or side effects. No changes were made today Review of Systems Review of Systems Yes all other systems are reviewed and are negative Mental Status Exam Mental Status Exam Narrative: In today's visit he is alert, pleasant and interactive. Normal speech. Moderate eye contact. Affect is appropriate and varied. No acute signs of psychosis observed. No SI. Cognitively intact Diagnostics Vital Signs (24Hr): Vital Signs - 24 hr 06/17/24 20:00 06/18/24 09:41 Temperature 98.8 F 97.8 F Pulse Rate 88 78 Respiratory Rate 18 12 Blood Pressure 120/65 114/78 Pulse Oximetry 95 98 Oxygen Delivery Method Room Air BMI result Body Mass Index 33.0 Medications Medications Current Medications Acetaminophen (Acetaminophen 325 Mg Tablet) 650 mg PO Q6H PRN PRN Reason: Headache/Pain Mild Scale (1-3) Last Admin: 06/17/24 17:28 Dose: 650 mg Al Hydroxide/Mg Hydroxide (Magnesium Hydrox/Alum Hydrox 30 Ml Oral.Susp) 30 ml PO Q6H PRN PRN Reason: Heartburn/Nausea Artificial Tears (Artificial Tears 15 Ml Drops) 2 drop EYE-BOTH Q4H PRN PRN Reason: Dry Eyes Divalproex Sodium (Divalproex Sodium Er 500 Mg Tab.Er.24h) 1,500 mg PO DAILY [facility] Last Admin: 06/18/24 09:10 Dose: 1,500 mg Hydroxyzine HCl (Hydroxyzine Hcl 25 Mg Tablet) 25 mg PO Q6H PRN PRN Reason: Anxiety Last Admin: 06/17/24 17:28 Dose: 25 mg Magnesium Hydroxide (Milk Of Magnesia 30 Ml Oral.Susp) 30 ml PO DAILY PRN PRN Reason: Constipation Melatonin (Melatonin 3 Mg Tablet) 6 mg PO BEDTIME [facility] Last Admin: 06/17/24 21:11 Dose: 6 mg Mirtazapine (Mirtazapine 7.5 Mg Tablet) 7.5 mg PO BEDTIME [facility] Last Admin: 06/17/24 21:11 Dose: 7.5 mg Nicotine Polacrilex (Nicotine Polacrilex 2 Mg Gum) 4 mg BUCCAL Q2H PRN PRN Reason: Nicotine Cravings Olanzapine (Olanzapine 10 Mg Tablet) 20 mg PO BEDTIME [facility] Last Admin: 06/17/24 21:10 Dose: 20 mg Paliperidone Palmitate (Paliperidone Palmitate 156 Mg/Ml Syringe) 156 mg IM Q30D [facility] Last Admin: 06/16/24 18:50 Dose: 156 mg Trazodone HCl (Trazodone Hcl 50 Mg Tablet) 50 mg PO BEDTIME MRX1 PRN PRN Reason: Insomnia Allergies Allergies Allergy/AdvReac Type Severity Reaction Status Date / Time No Known Allergies Allergy Verified 01/15/22 07:31 Assessment & Plan Assessment & Plan (1) Medical clearance for psychiatric admission: Status: Acute Code(s): Z00.8 - Encounter for other general examination Assessment and Plan: Pt is a 19-year-old male with a PMH significant for?autism, depression, and schizophrenia who is admitted to psychiatry unit for increasing depression with psychotic features and SI. Patient's family report patient has been increasingly paranoid and suicidal. Medical consult for admission H&P. Patient complains only of having dry eyes, otherwise denies any acute medical complaints. Mood disorder Plan as per Psychiatry Keratoconjunctivitis sicca Patient complains of having dry eyes Denies contact use Artificial tears prn The patient otherwise has no acute medical complaints or chronic medical conditions. Will sign off at this time. Thank you for allowing us to participate in the care of this patient. Please re-consult if any acute issue or need arises. 06/17: Continue current regimen and plans (2) Autism: Status: Chronic Code(s): F84.0 - Autistic disorder (3) Schizophrenia: Qualifiers: Schizophrenia type: paranoid schizophrenia Qualified Code(s): F20.0 - Paranoid schizophrenia Status: Chronic Code(s): F20.9 - Schizophrenia, unspecified Plan 06/14: increase VPA from 1000 mg daily to 1500 mg daily. increase zyprexa at HS from 10 mg to 20 mg. otherwise continue current mgmt. 06/15: feeling calm and tired. continue current mgmt. per collateral from [facility], pt receives invega sustenna 156 mg monthly, last given 05/16. will consult with prescriber re raising dose. 06/16: give invega sustenna, was due yesterday. 156 mg. continue current mgmt otherwise. improved from admission. less distracted, more fluid, CARLTON trending toward normal. 06/18: Continue current regimen and plans. Reason for continued inpatient stay Substantial Risk for: med/psych decompensation Time Spent With Patient Time: Total time managing care of this patient today ____ minutes.
[2024-06-18] MEDS: Acetaminophen 325 MG TABLET 650 MG PO (14:57)
--- NOTE | 2024-06-18 14:58 | PC.NURSE ---
pt requested tylenol for 610 back pain, re educated on pain scale
[2024-06-18 19:35] VITALS: BP 125/71; PULSE 100; RESP 18; TEMP 36.9; O2SAT 96
[2024-06-18] MEDS: Mirtazapine 7.5 MG TABLET PO (22:26)
[2024-06-18] MEDS: OLANZapine 10 MG TABLET 20 MG PO (22:26)
[2024-06-18] MEDS: Melatonin 3 MG TABLET 6 MG PO (22:26)
[2024-06-19 07:42] VITALS: BP 99/56; PULSE 64; RESP 14; TEMP 37; O2SAT 96
[2024-06-19] MEDS: Divalproex Sodium ER 500 MG TAB.ER.24H 1500 MG PO (08:49)
--- NOTE | 2024-06-19 15:29 | HO.PSYCHPN ---
Subjective Subjective Date of Service: 06/19/24 Reason For Visit: major depressive disorder, recurrent episode Subjective Notes: 3 Day Interim History: Reviewed with Dr. Tsang. Pt reports feeling good today; pt stated, I'm not feeling depressed anymore. I want to keep living for my family . Pt reports he plans on continuing to take his medications. Pt denies SI/HI/VH/AH. Pt reports sleeping well. 3 day up on 06/21/24. Medication Compliance: Yes Side effects from medications: No Attending Groups: No Review of Systems Constitutional: Reports as per HPI Eyes: Reports as per HPI Reports as per HPI Cardiovascular: Reports as per HPI Respiratory: Reports as per HPI Gastrointestinal: Reports as per HPI Genitourinary: Reports as per HPI Musculoskeletal: Reports as per HPI Skin/Breast: Reports as per HPI Reports as per HPI Psychiatric: Reports as per HPI Endocrine: Reports as per HPI Hematologic/Lymphatic: Reports as per HPI Allergic/Immunologic: Reports as per HPI Mental Status Exam Mental Status Exam Narrative: Pt is alert and oriented; behavior is cooperative and calm; dressed in casual attire; mood is described as good ; eye contact appropriate; Speech is normal rate, volume and not pressured; thought process is organized; Thought content is on tx; denies SI/HI/VH/AH. Diagnostics Vital Signs (24Hr): Vital Signs - 24 hr 06/18/24 19:35 06/19/24 07:42 Temperature 98.5 F 98.6 F Pulse Rate 100 64 Respiratory Rate 18 14 Blood Pressure 125/71 99/56 L Pulse Oximetry 96 96 Oxygen Delivery Method Room Air Room Air BMI result Body Mass Index 33.0 Medications Medications Current Medications Acetaminophen (Acetaminophen 325 Mg Tablet) 650 mg PO Q6H PRN PRN Reason: Headache/Pain Mild Scale (1-3) Last Admin: 06/18/24 14:57 Dose: 650 mg Al Hydroxide/Mg Hydroxide (Magnesium Hydrox/Alum Hydrox 30 Ml Oral.Susp) 30 ml PO Q6H PRN PRN Reason: Heartburn/Nausea Artificial Tears (Artificial Tears 15 Ml Drops) 2 drop EYE-BOTH Q4H PRN PRN Reason: Dry Eyes Divalproex Sodium (Divalproex Sodium Er 500 Mg Tab.Er.24h) 1,500 mg PO DAILY [facility]ELI Last Admin: 06/19/24 08:49 Dose: 1,500 mg Hydroxyzine HCl (Hydroxyzine Hcl 25 Mg Tablet) 25 mg PO Q6H PRN PRN Reason: Anxiety Last Admin: 06/17/24 17:28 Dose: 25 mg Magnesium Hydroxide (Milk Of Magnesia 30 Ml Oral.Susp) 30 ml PO DAILY PRN PRN Reason: Constipation Melatonin (Melatonin 3 Mg Tablet) 6 mg PO BEDTIME [facility]ELI Last Admin: 06/18/24 22:26 Dose: 6 mg Mirtazapine (Mirtazapine 7.5 Mg Tablet) 7.5 mg PO BEDTIME [facility]ELI Last Admin: 06/18/24 22:26 Dose: 7.5 mg Nicotine Polacrilex (Nicotine Polacrilex 2 Mg Gum) 4 mg BUCCAL Q2H PRN PRN Reason: Nicotine Cravings Olanzapine (Olanzapine 10 Mg Tablet) 20 mg PO BEDTIME [facility]ELI Last Admin: 06/18/24 22:26 Dose: 20 mg Paliperidone Palmitate (Paliperidone Palmitate 156 Mg/Ml Syringe) 156 mg IM Q30D [facility]EL[facility] Last Admin: 06/16/24 18:50 Dose: 156 mg Trazodone HCl (Trazodone Hcl 50 Mg Tablet) 50 mg PO BEDTIME MRX1 PRN PRN Reason: Insomnia Allergies Allergies Allergy/AdvReac Type Severity Reaction Status Date / Time No Known Allergies Allergy Verified 01/15/22 07:31 Assessment & Plan Assessment & Plan (1) Schizophrenia: Qualifiers: Schizophrenia type: paranoid schizophrenia Qualified Code(s): F20.0 - Paranoid schizophrenia Status: Chronic Code(s): F20.9 - Schizophrenia, unspecified (2) Autism: Status: Chronic Code(s): F84.0 - Autistic disorder Plan 06/14: increase VPA from 1000 mg daily to 1500 mg daily. increase zyprexa at HS from 10 mg to 20 mg. otherwise continue current mgmt. 06/15: feeling calm and tired. continue current mgmt. per collateral from [facility], pt receives invega sustenna 156 mg monthly, last given 05/16. will consult with prescriber re raising dose. 06/16: give invega sustenna, was due yesterday. 156 mg. continue current mgmt otherwise. improved from admission. less distracted, more fluid, [place] trending toward normal. 06/18: Continue current regimen and plans. 06/19: Pt reports feeling good today; pt stated, I'm not feeling depressed anymore. I want to keep living for my family . Pt reports he plans on continuing to take his medications. Pt denies SI/HI/VH/AH. Pt reports sleeping well. 3 day up on 06/21/24. depakote level to be drawn today. Patient educated on: diagnosis and medication risk/benefits Informed Consent: understands Reason for continued inpatient stay Substantial Risk for: med/psych decompensation Time Spent With Patient Time: Total time managing care of this patient today _20___ minutes.
[2024-06-19 16:32] LABS: MANUAL DIFF FLAG NO
[2024-06-19 16:37] LABS: Basophils Percent Auto 0.6 % (0-2); Eosinophils Absolute Auto 0.3 X10*3/uL (0.0-0.4); Eosinophils Percent Auto 4.2 % (0-4); Hemoglobin 13.8 g/dl (14.0-18.0); Imm Gran Abs Auto 0.11 X10*3/uL (0.00-0.03); Imm Gran Pct Auto 1.7 % (0.0-0.4); Lymphocytes Absolute Auto 1.8 X10*3/uL (1.2-4.9); Lymphocytes Percent Auto 28.7 % (20-40); Mean Corpuscular HGB Conc 34.5 g/dl (31.0-36.0); Mean Corpuscular Hemoglobin 28.4 pg (27.0-33.0); Mean Corpuscular Volume 82.3 fL (80.0-98.0); Mean Platelet Volume 10.8 fL (9.4-12.4); Monocytes Absolute Auto 0.6 X10*3/uL (0.1-1.2); Monocytes Percent Auto 9.8 % (2-11); Neutrophils Absolute Auto 3.5 x10*3/uL (2.0-8.3); Platelet Count 207 X10*3/uL (160-400); Red Blood Count 4.86 X10*6/uL (4.60-5.80); Red Cell Distribution Width 11.7 % (11.0-16.0); White Blood Count 6.4 X10*3/uL (4.8-10.8)
[2024-06-19 16:46] LABS: Ammonia 55 umol/L (13-55)
[2024-06-19 16:53] LABS: Valproate 42.8 mcg/mL (50.0-100.0)
[2024-06-19 17:02] LABS: Alanine Aminotransferase 29 U/L (0-40); Albumin Level 4.2 g/dL (3.5-5.0); Alkaline Phosphatase 59 U/L (39-117); Aspartate Amino Transferase 27 U/L (5-37); Bilirubin Direct 0.1 mg/dL (0.0-0.5); Bilirubin Total 0.3 mg/dL (0.0-1.0)
[2024-06-19 17:17] LABS: TSH reflex Free T4 1.19 uIU/mL (0.32-4.0)
[2024-06-19 20:00] VITALS: BP 116/64; PULSE 87; RESP 16; TEMP 36.6; O2SAT 96
[2024-06-19] MEDS: OLANZapine 10 MG TABLET 20 MG PO (21:34)
[2024-06-19] MEDS: Melatonin 3 MG TABLET 6 MG PO (21:34)
[2024-06-19] MEDS: Mirtazapine 7.5 MG TABLET PO (21:34)
[2024-06-20 07:25] VITALS: BP 100/61; PULSE 63; RESP 16; TEMP 36.8; O2SAT 96
[2024-06-20] MEDS: Divalproex Sodium ER 500 MG TAB.ER.24H 1500 MG PO (09:22)
--- NOTE | 2024-06-20 11:23 | HO.PSYCHPN ---
Subjective Subjective Date of Service: 06/20/24 Reason For Visit: major depressive disorder, recurrent episode Subjective Notes: 3 Day Interim History: Reviewed with Dr. Tsang. Pt reports feeling good today; pt stated, I'm ready to go home. I'm going to look for a job because not working makes me depressed . Pt denies SI/HI/VH/AH. Pt reports he plans on following up with outpatient providers. Valproic acid level 42.8 on 06/19/24. Medication Compliance: Yes Side effects from medications: No Attending Groups: No Review of Systems Constitutional: Reports as per HPI Eyes: Reports as per HPI Reports as per HPI Cardiovascular: Reports as per HPI Respiratory: Reports as per HPI Gastrointestinal: Reports as per HPI Genitourinary: Reports as per HPI Musculoskeletal: Reports as per HPI Skin/Breast: Reports as per HPI Reports as per HPI Psychiatric: Reports as per HPI Endocrine: Reports as per HPI Hematologic/Lymphatic: Reports as per HPI Allergic/Immunologic: Reports as per HPI Mental Status Exam Mental Status Exam Narrative: Pt is alert and oriented; behavior is cooperative and calm; dressed in casual attire; mood is described as good ; eye contact appropriate; Speech is normal rate, volume and not pressured; thought process is organized; Thought content is on discharge; denies SI/HI/VH/AH. Diagnostics Vital Signs (24Hr): Vital Signs - 24 hr 06/19/24 20:00 06/20/24 07:25 Temperature 98 F 98.2 F Pulse Rate 87 63 Respiratory Rate 16 16 Blood Pressure 116/64 100/61 Pulse Oximetry 96 96 Oxygen Delivery Method Room Air Room Air BMI result Body Mass Index 33.0 Labs 06/19/24 16:27 Labs: Laboratory Results - last 48 hr 06/19/24 06/19/24 16:26 16:27 WBC 6.4 RBC 4.86 Hgb 13.8 L Hct 40.0 L MCV 82.3 MCH 28.4 MCHC 34.5 RDW 11.7 Plt Count 207 MPV 10.8 Immature Gran % (Auto) 1.7 H Neut % (Auto) 55.0 Lymph % (Auto) 28.7 [place] % (Auto) 9.8 Eos % (Auto) 4.2 H Baso % (Auto) 0.6 Lymph # (Auto) 1.8 [place] # (Auto) 0.6 Eos # (Auto) 0.3 Baso # (Auto) 0.0 Abs Immat Gran (auto) 0.11 H Absolute Neuts (auto) 3.5 Absolute Nucleated RBC 0.000 Nucleated RBC % (auto) 0.0 Total Bilirubin 0.3 Direct Bilirubin 0.1 AST 27 ALT 29 Alkaline Phosphatase 59 Ammonia 55 Total Protein 7.0 Albumin 4.2 TSH 1.19 Valproic Acid 42.8 L Medications Medications Current Medications Acetaminophen (Acetaminophen 325 Mg Tablet) 650 mg PO Q6H PRN PRN Reason: Headache/Pain Mild Scale (1-3) Last Admin: 06/18/24 14:57 Dose: 650 mg Al Hydroxide/Mg Hydroxide (Magnesium Hydrox/Alum Hydrox 30 Ml Oral.Susp) 30 ml PO Q6H PRN PRN Reason: Heartburn/Nausea Artificial Tears (Artificial Tears 15 Ml Drops) 2 drop EYE-BOTH Q4H PRN PRN Reason: Dry Eyes Divalproex Sodium (Divalproex Sodium Er 500 Mg Tab.Er.24h) 1,500 mg PO DAILY [facility] Last Admin: 06/20/24 09:22 Dose: 1,500 mg Hydroxyzine HCl (Hydroxyzine Hcl 25 Mg Tablet) 25 mg PO Q6H PRN PRN Reason: Anxiety Last Admin: 06/17/24 17:28 Dose: 25 mg Magnesium Hydroxide (Milk Of Magnesia 30 Ml Oral.Susp) 30 ml PO DAILY PRN PRN Reason: Constipation Melatonin (Melatonin 3 Mg Tablet) 6 mg PO BEDTIME [facility] Last Admin: 06/19/24 21:34 Dose: 6 mg Mirtazapine (Mirtazapine 7.5 Mg Tablet) 7.5 mg PO BEDTIME [facility] Last Admin: 06/19/24 21:34 Dose: 7.5 mg Nicotine Polacrilex (Nicotine Polacrilex 2 Mg Gum) 4 mg BUCCAL Q2H PRN PRN Reason: Nicotine Cravings Olanzapine (Olanzapine 10 Mg Tablet) 20 mg PO BEDTIME [facility] Last Admin: 06/19/24 21:34 Dose: 20 mg Paliperidone Palmitate (Paliperidone Palmitate 156 Mg/Ml Syringe) 156 mg IM Q30D [facility] Last Admin: 06/16/24 18:50 Dose: 156 mg Trazodone HCl (Trazodone Hcl 50 Mg Tablet) 50 mg PO BEDTIME MRX1 PRN PRN Reason: Insomnia Allergies Allergies Allergy/AdvReac Type Severity Reaction Status Date / Time No Known Allergies Allergy Verified 01/15/22 07:31 Assessment & Plan Assessment & Plan (1) Schizophrenia: Qualifiers: Schizophrenia type: paranoid schizophrenia Qualified Code(s): F20.0 - Paranoid schizophrenia Status: Chronic Code(s): F20.9 - Schizophrenia, unspecified (2) Autism: Status: Chronic Code(s): F84.0 - Autistic disorder Plan 06/14: increase VPA from 1000 mg daily to 1500 mg daily. increase zyprexa at HS from 10 mg to 20 mg. otherwise continue current mgmt. 06/15: feeling calm and tired. continue current mgmt. per collateral from [facility], pt receives invega sustenna 156 mg monthly, last given 05/16. will consult with prescriber re raising dose. 06/16: give invega sustenna, was due yesterday. 156 mg. continue current mgmt otherwise. improved from admission. less distracted, more fluid, [place] trending toward normal. 06/18: Continue current regimen and plans. 06/19: Pt reports feeling good today; pt stated, I'm not feeling depressed anymore. I want to keep living for my family . Pt reports he plans on continuing to take his medications. Pt denies SI/HI/VH/AH. Pt reports sleeping well. 3 day up on 06/21/24. depakote level to be drawn today. 06/20: Pt reports feeling good today; pt stated, I'm ready to go home. I'm going to look for a job because not working makes me depressed . Pt denies SI/HI/VH/AH. Pt reports he plans on following up with outpatient providers. Valproic acid level 42.8 on 06/19/24. Patient educated on: diagnosis, medication risk/benefits and therapeutic strategies Informed Consent: understands Reason for continued inpatient stay Substantial Risk for: stable for discharge Time Spent With Patient Time: Total time managing care of this patient today _20___ minutes.
[2024-06-20 20:00] VITALS: BP 129/69; PULSE 95; RESP 16; TEMP 37.1; O2SAT 97
[2024-06-20] MEDS: Melatonin 3 MG TABLET 6 MG PO (20:43)
[2024-06-20] MEDS: Mirtazapine 7.5 MG TABLET PO (20:43)
[2024-06-20] MEDS: OLANZapine 10 MG TABLET 20 MG PO (20:43)
[2024-06-21 07:35] VITALS: BP 92/48; PULSE 69; RESP 18; TEMP 36.6; O2SAT 97
[2024-06-21 08:00] VITALS: BP 92/48; PULSE 69; RESP 18; TEMP 36.6; O2SAT 97
[2024-06-21] MEDS: Divalproex Sodium ER 500 MG TAB.ER.24H 1500 MG PO (08:00)
--- NOTE | 2024-06-21 10:28 | P.DS_ITS ---
DS: Providers Provider Date of Service: 06/21/24 Date of admission: 06/13/24 18:32 Date of discharge: 06/21/24 Primary care physician: [facility] Attending physician on admission: Bert Hollis Consults: 06/13/24 19:09 Consult to Hospitalist Routine Comment: Consulting Provider: Hospitalist Reason For Exam: OSH admission Attending physician on discharge: Wenceslao Tsang Discharging clinician: Gudelia Johns DS: Diagnosis Discharge Diagnosis (1) Schizophrenia: Status: Chronic (2) Autism: Status: Chronic DS: Medications Discharge Medications Home Medications: Previous Rx's ?Medication ?Instructions ?Recorded divalproex 500 mg tablet,extended 1,500 mg (3 x 500 mg) PO DAILY 30 06/20/24 release 24 hr days #90 tabs melatonin 3 mg capsule 6 mg (2 x 3 mg) PO BEDTIME 30 days 06/20/24 #60 caps mirtazapine 7.5 mg tablet 7.5 mg PO BEDTIME 30 days #30 tabs 06/20/24 olanzapine 20 mg tablet 20 mg PO BEDTIME 30 days #30 tabs 06/20/24 paliperidone palmitate 156 mg/mL 156 mg IM Q30D #0 mL 06/20/24 intramuscular syringe (Invega Sustenna) Mental Status Exam Mental Status Exam Narrative: Pt is alert and oriented; behavior is cooperative and calm; dressed in casual attire; mood is described as good ; eye contact appropriate; Speech is normal rate, volume and not pressured; thought process is organized; Thought content is on discharge; denies SI/HI/VH/AH. Data Data Completed and Pending Completed studies during hospitalization [Text1]: 06/19/24 06/19/24 16:26 16:27 WBC 6.4 RBC 4.86 Hgb 13.8 L Hct 40.0 L MCV 82.3 MCH 28.4 MCHC 34.5 RDW 11.7 Plt Count 207 MPV 10.8 Immature Gran % (Auto) 1.7 H Neut % (Auto) 55.0 Lymph % (Auto) 28.7 [place] % (Auto) 9.8 Eos % (Auto) 4.2 H Baso % (Auto) 0.6 Lymph # (Auto) 1.8 [place] # (Auto) 0.6 Eos # (Auto) 0.3 Baso # (Auto) 0.0 Abs Immat Gran (auto) 0.11 H Absolute Neuts (auto) 3.5 Absolute Nucleated RBC 0.000 Nucleated RBC % (auto) 0.0 Total Bilirubin 0.3 Direct Bilirubin 0.1 AST 27 ALT 29 Alkaline Phosphatase 59 Ammonia 55 Total Protein 7.0 Albumin 4.2 TSH 1.19 Valproic Acid 42.8 L DS: Summary Hospital Course Hospital Course: per [facility] crisis eval, pt was seen in their [facility] offices, where he sought evalua tion due to not feeling safe at his home. he reported feeling someone there was watching him while he was sleeping. he endorsed SI with plan to hang himself and HI, no plan or intent. he identified the recent of a brother as an important psycho-social factor. on interview with med student and MD, pt with increased [place], staring. appears distracted as if attending to unknown stimuli. responses vague and lacking content, for the most part. acknowledges chronic SI and psychotic Sx. he states that how he got here was that he told [facility] worker he was having suicidal thoughts, and she called the online editor. denies plan yesterday or having had HI yesterday (which is not c/w history by [facility] balancing machine set up worker). he reports sometimes he sees shadows and hears whisperings sometimes, such as hey, come over here, at night. he is open to medication changes and was informed of low VPA serum level. he appeared anxious during the interview at points and was eager to leave, so much so that he asked to do so. increase VPA from 1000 mg daily to 1500 mg daily. increase zyprexa at HS from 10 mg to 20 mg. otherwise continue current mgmt. increase VPA from 1000 mg daily to 1500 mg daily. increase zyprexa at HS from 10 mg to 20 mg. otherwise continue current mgmt. feeling calm and tired. continue current mgmt. per collateral from [facility], pt receives invega sustenna 156 mg monthly, last given 05/16. will consult with prescriber re raising dose. give invega sustenna, was due yesterday. 156 mg. continue current mgmt otherwise. improved from admission. less distracted, more fluid, [place] trending toward normal. Pt reports feeling good today; pt stated, I'm not feeling depressed anymore. I want to keep living for my family . Pt reports he plans on continuing to take his medications. Pt denies SI/HI/VH/AH. Pt reports sleeping well. 3 day up on 06/21/24. depakote level to be drawn today. Pt reports feeling good today; pt stated, I'm ready to go home. I'm going to look for a job because not working makes me depressed . Pt denies SI/HI/VH/AH. Pt reports he plans on following up with outpatient providers. Valproic acid level 42.8 on 06/19/24. Pt reports feeling good today; pt reports he is looking forward to going home. Pt reports he plans on following up with outpatient providers. pt denies SI/HI/VH/AH. Time spent discussing smoking cessation with patient: 3 to 10 minutes Status at Discharge Cognitive/behavioral status at discharge: Patient was interviewed prior to discharge and found to be fully oriented and without SI or HI. Patient has insight and demonstrates good judgment in terms of wanting to pursue treatment. Patient has a safety plan that includes presenting to the closest ER or calling 911 if feeling unsafe. Functional status at discharge: independent ambulation Overall status at discharge: patient is back to baseline Time Spent with Patient Time attestation: Total time managing care of this patient today _20___ minutes. Time spent: Less than 30 minutes Discharge Plan Discharge Anticipated Discharge Date/Time: 06/21/24 11:30 Patient Disposition: Home, Self-Care Discharge Diagnosis: Schizophrenia, Autism Referrals: [facility] Clinician: Leola ([facility]) [Other] - 1 Week (Leola is on your outreach team; any questions about your care or if in need of additional services or support, please reach out to her for assistance. ) Psych Prescriber: Gilda Valenzuela ([facility]) [Other] - 07/10/24 11:00 am (Appointment is in person, at the office ) [facility]: [facility] [Other] - 06/22/24 (The [facility]NA will call this evening or tomorrow morning to arrange a time to come out to re-start services on 06/22) [facility] [Provider Group] - 1 Week (PCP office will contact patient directly to schedule a follow up appt after discharge.) Discharge Medications: New olanzapine 20 mg tablet 20 mg PO BEDTIME 30 Days Qty: 30 0RF divalproex 500 mg Tablet Extended Release 24 Hr 1,500 mg PO DAILY 30 Days Qty: 90 0RF Invega Sustenna 156 mg/mL Syringe 156 mg IM Q30D Qty: 0 0RF Continued mirtazapine 7.5 mg Tablet 7.5 mg PO BEDTIME 30 Days Qty: 30 0RF melatonin 3 mg Capsule 6 mg PO BEDTIME 30 Days Qty: 60 0RF Discontinued trazodone 50 mg tablet 50 mg PO BEDTIME PRN (Reason: insomnia) 30 Days Qty: 30 0RF divalproex 500 mg Tablet Extended Release 24 Hr 1,000 mg PO DAILY olanzapine [Zyprexa] 10 mg tablet 10 mg PO BEDTIME Discharge Orders: Discharge Order (Routine); Ordered 06/21/24 Ordered By: Gudelia Johns Diet: Regular diet Activity on Discharge: As tolerated Stand Alone Forms: Patient Portal Discharge page, Community Support Print Language: Yi Care Plan Goals: Maintain mood and safe behaviors Take medications as prescribed Practice coping skills Continue with outpatient providers and reach out to them as needed Health Concerns: Mood stability and behaviors Plan of Treatment: Follow up with your PCP, psychiatric provider and other outpatient providers regarding above concerns Take medications as prescribed Next Invega Sustenna injection due 07/16/2024. Assessment: Patient was interviewed prior to discharge and found to be fully oriented and without SI or HI. Patient has insight and demonstrates good judgment in terms of wanting to pursue treatment. Patient has a safety plan that includes presenting to the closest ER or calling 911 if feeling unsafe. Discharge Date/Time: 06/21/24 11:10
== END 2024-06-21 11:10 | disposition home or self-care (01) | DRG 750 ==
PROVIDERS: Admitting Provider Psychiatry & Neurology Psychiatry; Responsible Provider Registered Nurse; Visit Provider Psychiatry & Neurology Psychiatry
DX: F20.0 Paranoid schizophrenia (principal); R45.851 Suicidal ideations; F84.0 Autistic disorder; H16.223 Keratoconjunctivitis sicca, not specified as Sjogren's, bilateral; Z79.899 Other long term (current) drug therapy
CPT/HCPCS: 36415; 80061; 80076; 80164; 82140; 82607; 82746; 83036; 84439; 84443; 85025; J2426

== ENCOUNTER → 2024-06-13 18:32 | Outpatient (BNV) | payer MEDICAID, SELFPAY | PROVIDERS: Admitting Provider Psychiatry & Neurology Psychiatry; Visit Provider Student in an Organized Health Care Education/Training Program | DX: Z00.8 Encounter for other general examination (principal) | CPT/HCPCS: 99429 ==

== ENCOUNTER → 2024-06-13 18:32 | Outpatient (BNV) | payer OTHER, SELFPAY | PROVIDERS: Admitting Provider Psychiatry & Neurology Psychiatry; Visit Provider Psychiatry & Neurology Psychiatry | DX: F20.0 Paranoid schizophrenia (principal); F84.0 Autistic disorder | CPT/HCPCS: 99231; 99232; 99233 ==

== ENCOUNTER 2024-07-16 18:50 | Emergency (ER) | payer OTHER, SELFPAY ==
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
[2024-07-16 19:01] VITALS: BP 130/90; PULSE 91; O2SAT 97
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
[2024-07-16 20:02] VITALS: BP 127/68; PULSE 67; RESP 16; TEMP 36.8; O2SAT 97; BMI 33.2
[2024-07-16] MEDS: Ibuprofen 600 MG TABLET PO (22:11)
[2024-07-16] MEDS: Amoxicillin/Potassium Clav 875 MG TABLET PO (22:12)
[2024-07-16] MEDS: Acetaminophen 325 MG TABLET 975 MG PO (22:12)
[2024-07-16 22:21] VITALS: BP 127/68; PULSE 67; RESP 16; TEMP 36.8; O2SAT 97
== END 2024-07-16 22:42 | disposition home or self-care (01) ==
PROVIDERS: Emergency Provider Emergency Medicine Emergency Medical Services
DX: S02.401A Maxillary fracture, unspecified side, initial encounter for closed fracture (principal); H57.11 Ocular pain, right eye; M25.521 Pain in right elbow; R51.9 Headache, unspecified; Y99.8 Other external cause status; Y04.2XXA Assault by strike against or bumped into by another person, initial encounter; Y93.89 Activity, other specified; Y92.89 Other specified places as the place of occurrence of the external cause
CPT/HCPCS: 70450; 70486; 73080; 99284